=== PATIENT | female | born 1960 | race Caucasian/White ===

== ENCOUNTER 2017-05-26 18:45 | Observation (INO) | payer OTHER, SELFPAY ==
[2017-05-26 18:45] VITALS: BP 147/98; PULSE 58; RESP 22; TEMP 36.8; O2SAT 91; BMI 37.2
--- NOTE | 2017-05-26 18:56 | XR_ITS ---
XR chest 2V HISTORY: ITS.REASON: cough ORDERING PHYSICIAN: Vern Baltazar MD PATIENT AGE: 56 years COMPARISON: 09/22/2015 FINDINGS: The cardiomediastinal silhouette and pulmonary vascularity are within normal limits. The lungs are clear without infiltrates, suspicious nodules, or pleural effusions. No acute bony abnormalities. IMPRESSION: Negative chest, no acute finding
[2017-05-26 19:03] VITALS: PULSE 104; PULSE 96
[2017-05-26 19:35] LABS: Basophils # 0.1 K/mm3 (0-0.2); Basophils % 0.4 % (0.1-2.0); Eosinophils # 0.1 K/mm3 (0.0-0.4); Hematocrit 47.5 % (37.0-47.0); Lymphocytes # 2.9 K/mm3 (0.7-4.5); Lymphocytes % 21.3 K/mm3 (10-50); Mean Corpuscular HGB Conc 33.7 g/dL (31.8-35.4); Mean Corpuscular Hemoglobin 31.9 pg (27.0-31.2); Mean Corpuscular Volume 94.8 fl (81-99); Mean Platelet Volume 8.2 fl (7.4-10.4); Monocytes # 0.6 K/mm3 (0.1-1.0); Monocytes % 4.5 % (1.7-9.3); Neutrophils % 72.8 % (37.0-80.0); Platelet Count 393 K/mm3 (142-424); Red Blood Count 5.01 M/mm3 (4.20-5.40); Red Cell Distribution Width 13.1 % (11.5-17.5); White Blood Count 13.8 K/mm3 (4.8-10.8)
[2017-05-26 19:42] LABS: Lactic Acid 1.2 mmol/L (0.4-2.0)
[2017-05-26 19:54] LABS: Alanine Aminotransferase 105 U/L (12-78); Albumin Level 3.7 gm/dL (3.4-5.0); Albumin/Globulin Ratio 0.8 (1.1-1.8); Alkaline Phosphatase 117 U/L (46-116); Anion Gap 12.4 mEq/L (5-15); Aspartate Amino Transferase 52 U/L (15-37); Bilirubin,Total 0.5 mg/dL (0.2-1.0); Blood Urea Nitrogen 28 mg/dL (7-18); Calcium 9.2 mg/dL (8.5-10.1); Carbon Dioxide 29 mmol/L (21.0-32.0); Chloride 103 mmol/L (98-107); Creatine Kinase 38 U/L (26-192); Creatinine Clearance Estimated 81 mL/min (0-300); Creatinine,Serum 1.17 mg/dL (0.55-1.02); Estimated Glomerular Filt Rate 48 ml/min (>60); GFR (African American) 58 ML/MIN (>60); Globulin 4.6 gm/dl (1.3-3.2); Glucose 195 mg/dL (74-106); Potassium 3.4 mmoL/L (3.5-5.1); Sodium 141 mmol/L (136-145); Total Protein,Serum 8.3 gm/dL (6.4-8.2); Troponin I < 0.02 ng/ml (0.00-0.06)
[2017-05-26 19:56] LABS: CKMB Relative Index 1.3 U/L (0-4.0); Creatine Kinase MB < 0.5 mg/ml (0.0-3.6)
--- NOTE | 2017-05-26 22:25 | HMH.EDSOB ---
ED Disposition Clinical Impression: Chest pain in adult, Acute exacerbation of chronic obstructive airways disease, Renal insufficiency Ventral hernia Qualifiers: Obstruction and gangrene presence: without obstruction or gangrene Qualified Code(s): K43.9 - Ventral hernia without obstruction or gangrene Disposition: Admitted as Observation Condition on Discharge: Good - Critical Care Critical Care Time: No Attestation: On 05/26/17, the high probability of a clinically significant, sudden or life threatening deterioration of the following system(s) required my full and direct attention, intervention and personal management. The time I documented below is in addition to time spent performing reported procedures but includes the following listed in this critical care notation. Medical Decision Making - Medical Records Medical records reviewed: Yes: I reviewed the patient's medical records. Vital Signs: 05/26/17 18:45 05/26/17 19:03 Temperature 98.2 F Temperature Source Tympanic Pulse Rate 104 H Pulse Rate [Left Brachial] 58 L Respiratory Rate 22 Blood Pressure [Right Arm] 147/98 Blood Pressure Mean [Right Arm] 114 Blood Pressure Source [Right Arm] Automatic Cuff Blood Pressure Position [Right Arm] Sitting 02 Sat by Pulse Oximetry 91 L Oxygen Delivery Method Room Air - Lab Data Lab results reviewed: Yes: I reviewed the patient's lab results. Lab Results 05/26/17 19:15: WBC 13.8 H, RBC 5.01, Hgb 16.0, Hct 47.5 H, MCV 94.8, MCH 31.9 H, MCHC 33.7, RDW 13.1, Plt Count 393, MPV 8.2, Neut % (Auto) 72.8, Lymph % (Auto) 21.3, [place] % (Auto) 4.5, Eos % (Auto) 1.0, Baso % (Auto) 0.4, Neut # (Auto) 10.0 H, Lymph # (Auto) 2.9, [place] # (Auto) 0.6, Eos # (Auto) 0.1, Baso # (Auto) 0.1 05/26/17 19:15: Sodium 141, Potassium 3.4 L, Chloride 103, Carbon Dioxide 29, Anion Gap 12.4, BUN 28 H, Creatinine 1.17 H, Estimated Creat Clear 81, Estimated GFR 48 L, Est GFR ( Amer) 58 L, Glucose 195 H, Calcium 9.2, Total Bilirubin 0.5, AST 52 H, ALT 105 H, Alkaline Phosphatase 117 H, Total Creatine Kinase 38, CK-MB (CK-2) < 0.5, CK-MB (CK-2) Rel Index 1.3, Troponin I < 0.02, Total Protein 8.3 H, Albumin 3.7, Globulin 4.6 H, Albumin/Globulin Ratio 0.8 L 05/26/17 19:15: Lactic Acid 1.2 05/26/17 20:55: Influenza Type A Ag Negative, Influenza Type B Ag Negative Result diagrams: 05/26/17 19:15 05/26/17 19:15 Orders (Tests/Meds): ED MEDICATIONS Discontinued Medications Generic Name Dose Route Start Last Admin Trade Name Freq PRN Reason Stop Dose Admin Albuterol/Ipratropium 3 ml 05/26/17 18:58 05/26/17 19:00 Duoneb 3ml Neb IH 05/26/17 18:59 3 ml ONCE ONE Administration ORDERS Category Date Time Status Blood Culture Stat Micro 05/26/17 19:15 Received 12-lead EKG Request [ECG Request by /Sophia] Stat Y 05/26/17 22:38 Ordered - Radiology Data #1 Image Reviewed: Yes I reviewed the patient's radiology image Preliminary Findings: Normal/NAD - ECG Data Tracing #1 I reviewed this ECG and interpreted as documented below: Arrhythmias present: other (nsr) Ischemic changes: non-specific ST-T wave changes - Chuy Inquiry Pt receiving controlled substance: No Resp/SOB HPI - General Chief Complaint: Shortness of Breath/Dyspnea Stated Complaint: Knot in stomach, Congestion, Diaherra Time Seen by Provider: 05/26/17 22:25 Mode of Arrival: Ambulatory Source of Information: Patient, Relative, Medical Record Limitations: No Limitations Description of Symptoms (Recalled from ER Triage Doc. by RN): productive cough, weak, fever - History of Present Illness over the last few weeks sob with exertion and lower chest pain with dec po intake - no known ht disease MD Complaint: shortness of breath Onset (ago): day(s) Context: occurred during exertion Severity: moderate Known history of: COPD Treatment prior to arrival: none - Related Data Home oxygen amount: none Allergies Allergy
--- NOTE | 2017-05-26 22:32 | ED_ITS ---
ED Disposition Clinical Impression: Chest pain in adult, Acute exacerbation of chronic obstructive airways disease , Renal insufficiency Ventral hernia Qualifiers: Obstruction and gangrene presence: without obstruction or gangrene Qualified Code(s): K43.9 - Ventral hernia without obstruction or gangrene Disposition: Admitted as Observation Condition on Discharge: Good - Critical Care Critical Care Time: No Attestation: On 05/26/17, the high probability of a clinically significant, sudden or life threatening deterioration of the following system(s) required my full and direct attention, intervention and personal management. The time I documented below is in addition to time spent performing reported procedures but includes the following listed in this critical care notation. Medical Decision Making - Medical Records Medical records reviewed: Yes: I reviewed the patient's medical records. Vital Signs: 05/26/17 18:45 05/26/17 19:03 Temperature 98.2 F Temperature Source Tympanic Pulse Rate 104 H Pulse Rate [Left Brachial] 58 L Respiratory Rate 22 Blood Pressure [Right Arm] 147/98 Blood Pressure Mean [Right Arm] 114 Blood Pressure Source [Right Arm] Automatic Cuff Blood Pressure Position [Right Arm] Sitting 02 Sat by Pulse Oximetry 91 L Oxygen Delivery Method Room Air - Lab Data Lab results reviewed: Yes: I reviewed the patient's lab results. Lab Results 05/26/17 19:15: WBC 13.8 H, RBC 5.01, Hgb 16.0, Hct 47.5 H, MCV 94.8, MCH 31.9 H , MCHC 33.7, RDW 13.1, Plt Count 393, MPV 8.2, Neut % (Auto) 72.8, Lymph % (Auto ) 21.3, [place] % (Auto) 4.5, Eos % (Auto) 1.0, Baso % (Auto) 0.4, Neut # (Auto) 10.0 H, Lymph # (Auto) 2.9, [place] # (Auto) 0.6, Eos # (Auto) 0.1, Baso # (Auto) 0.1 05/26/17 19:15: Sodium 141, Potassium 3.4 L, Chloride 103, Carbon Dioxide 29, Anion Gap 12.4, BUN 28 H, Creatinine 1.17 H, Estimated Creat Clear 81, Estimated GFR 48 L, Est GFR ( Amer) 58 L, Glucose 195 H, Calcium 9.2, Total Bilirubin 0.5, AST 52 H, ALT 105 H, Alkaline Phosphatase 117 H, Total Creatine Kinase 38, CK-MB (CK-2) < 0.5, CK-MB (CK-2) Rel Index 1.3, Troponin I < 0.02, Total Protein 8.3 H, Albumin 3.7, Globulin 4.6 H, Albumin/Globulin Ratio 0.8 L 05/26/17 19:15: Lactic Acid 1.2 05/26/17 20:55: Influenza Type A Ag Negative, Influenza Type B Ag Negative Result diagrams: 05/26/17 19:15 05/26/17 19:15 Orders (Tests/Meds): ED MEDICATIONS Discontinued Medications Generic Name Dose Route Start Last Admin Trade Name Freq PRN Reason Stop Dose Admin Albuterol/Ipratropium 3 ml 05/26/17 18:58 05/26/17 19:00 Duoneb 3ml Neb IH 05/26/17 18:59 3 ml ONCE ONE Administration ORDERS Category Date Time Status Blood Culture Stat Micro 05/26/17 19:15 Received 12-lead EKG Request [ECG Request by /Sophia] Stat Y 05/26/17 22:38 Ordered - Radiology Data #1 Image Reviewed: Yes I reviewed the patient's radiology image Preliminary Findings: Normal/NAD - ECG Data Tracing #1 I reviewed this ECG and interpreted as documented below: Arrhythmias present: other (nsr) Ischemic changes: non-specific ST-T wave changes - Chuy Inquiry Pt receiving controlled substance: No Resp/SOB HPI - General Chief Complaint: Shortness of Breath/Dyspnea Stated Complaint: Knot in stomach, Congestio
[2017-05-26 23:00] VITALS: RESP 18; O2SAT 96; BMI 35.2
[2017-05-26 23:36] VITALS: BP 113/67; PULSE 66; RESP 20; TEMP 37; O2SAT 100
[2017-05-27] VITALS (22 sets, daily range): BP systolic 114–150; BP diastolic 62–107; PULSE 58–95; RESP 13–98; TEMP 36.1–36.7; O2SAT 2–100
--- NOTE | 2017-05-27 | IR_ITS ---
CARDIAC CATHETERIZATION DATE OF CATHETERIZATION:05/27/2017 2:51 PM PROCEDURES: 1. Left heart catheterization 2. Left ventriculogram 3. Selective coronary angiogram INDICATION FOR TEST: 1. Unstable angina Informed consent was obtained prior to the procedure. COMPLICATIONS: None ESTIMATED BLOOD LOSS: Less than 10 ml. TECHNIQUE: One percent lidocaine was used to anesthetize the right groin. The right femoral artery was accessed via the Seldinger technique. A 4-[place] sheath was placed in the right femoral artery. The JL-4 and JR-4 catheter was also used to perform left heart catheterization and left ventriculography. At the end of the procedure the patient was transferred to the post-op holding area in stable condition for arterial sheath removal. ANGIOGRAPHIC RESULTS: 1. The left main artery normal 2. The left anterior descending artery normal 3. The circumflex artery normal 4. The right coronary artery dominant normal 5. The ANTON ventriculogram reveals slightly hyperdynamic at 70% 6. The left ventricular end-diastolic pressure 30 mmHg IMPRESSION: 1. Normal coronary arteries. 2. Hyperdynamic ejection fraction consistent with hypertensive heart disease 3. Moderate to severely elevated LVEDP consistent with diastolic dysfunction PLAN: 1. Patient requires diuresis. She would also benefit from diltiazem or verapamil also combined with a beta eder 2. Sleep study 3. Risk factor modification
--- NOTE | 2017-05-27 04:40 | PC.NURSE ---
COME IN THRU ED C/O SOA AND CHEST PAIN. PATIENT REPORTS HAVING GREEN AND DARK YELLOW SPUTUM SINCE BEFORE [facility]. EXPRESSES ANXIETY DUE TO FAMILY HISTORY OF CA. APPLE SAXENA ARE ON BLE VSS. NO ACUTE CHANGES. NO FURTHER C/O PAIN THIS SHIFT. CALL LIGHT IN REACH. WILL CONTINUE TO MONITOR
--- NOTE | 2017-05-27 06:52 | CA_ITS ---
PROCEDURE: 2-D M-mode and color Doppler study INDICATIONS FOR THE TEST: Chest painX COPDX Heart Murmur Tobacco SmokingX Palpitations Fatigue Syncope Edema Hypertension Diabetes Mellitus Rheumatic Fever SOBXDOEXObesity Hyperlipidemia Family History HD Additional History PATIENT INFORMATION HEIGHT: 63 WEIGHT:198 GENDER: Female B/P:147/98 2-D/M-MODE INTERPRETATION: 2-D MEASUREMENTS OBSERVED VALUES IN CMS Right Ventricular Dimension (RVDd) 2.3 Interventricular Septum (Thickness)(IVsd) 1.0 Left Ventricular Internal Dimensions(LVIDd) 4.8 Left Ventricular Posterior Wall (Thickness)(LVPWd) 1.1 Aortic Root 3.4 Aortic Cusp Separation 1.7 Left Atrial Dimensions (LAD) 2.3 2D 1. Left atrium is normal size, left ventricle is normal size, there is no concentric left ventricular hypertrophy, visually estimated ejection fraction 50%, there is abnormal septal motion. 2. The right atrium and right ventricle are qualitatively mildly enlarged with normal contractility. 3. The aortic valve is minimally thickened and fibrosed. 4. The mitral and tricuspid valvular grossly normal. 5. The pulmonic valve is poorly visualized. 6. No significant pericardial effusion noted. DOPPLER INTERROGATION: Doppler interrogation of the aortic, mitral and tricuspid valvular presence of mild mitral and tricuspid regurgitation, tricuspid and jet velocity is insufficient for calculation of the right ventricular systolic pressure, diastolic parameters are inconclusive. CONCLUSION: 1. Technically difficult study because of the patient's factor and poor acoustic windows 2. Normal left ventricular size, visually estimated ejection fraction 50%, there is abnormal septal motion. Diastolic parameters are inconclusive. 3. Mildly enlarged right atrium and right ventricle, contractility of the right ventricle is normal 4. No significant pericardial effusion noted.
[2017-05-27 07:04] LABS: Anion Gap 10.9 mEq/L (5-15); Blood Urea Nitrogen 24 mg/dL (7-18); Carbon Dioxide 29 mmol/L (21.0-32.0); Chloride 105 mmol/L (98-107); Creatinine Clearance Estimated 98 mL/min (0-300); Creatinine,Serum 0.91 mg/dL (0.55-1.02); Estimated Glomerular Filt Rate 64 ml/min (>60); GFR (African American) 77 ML/MIN (>60); Glucose 115 mg/dL (74-106); Sodium 142 mmol/L (136-145)
[2017-05-27 07:08] LABS: Troponin I < 0.02 ng/ml (0.00-0.06)
[2017-05-27 07:15] LABS: Potassium 2.9 mmoL/L (3.5-5.1)
[2017-05-27 07:27] LABS: Basophils # 0.1 K/mm3 (0-0.2); Basophils % 0.4 % (0.1-2.0); Eosinophils # 0.2 K/mm3 (0.0-0.4); Eosinophils % 1.3 % (0.1-12.0); Lymphocytes # 3.6 K/mm3 (0.7-4.5); Lymphocytes % 27.4 K/mm3 (10-50); Mean Corpuscular HGB Conc 33.7 g/dL (31.8-35.4); Mean Corpuscular Hemoglobin 31.8 pg (27.0-31.2); Mean Corpuscular Volume 94.3 fl (81-99); Mean Platelet Volume 8.4 fl (7.4-10.4); Monocytes # 0.9 K/mm3 (0.1-1.0); Monocytes % 6.8 % (1.7-9.3); Neutrophils # 8.4 K/mm3 (1.8-7.8); Neutrophils % 64.1 % (37.0-80.0); Platelet Count 358 K/mm3 (142-424); Red Blood Count 4.46 M/mm3 (4.20-5.40); Red Cell Distribution Width 13.2 % (11.5-17.5); White Blood Count 13.1 K/mm3 (4.8-10.8)
[2017-05-27 07:31] LABS: Hemoglobin 14.2 g/dL (12.2-16.2)
--- NOTE | 2017-05-27 07:47 | P.CONPHA_ITS ---
[facility] Pharmacy VTE Monitoring - Patient Demographics Admission date: 05/26/17 Report Date: 05/27/17 Time: 07:47 Allergies/Adverse Reactions: No Known Allergies Allergy (Unverified 05/03/17 14:31) Height: 1.6 m Weight: 90.038 kg Patient Problems: Current Active Problems Chest pain in adult (Acute) Acute exacerbation of chronic obstructive airways disease (Acute) Renal insufficiency (Acute) Ventral hernia (Acute) - VTE Risk Labs: VTE Related Lab Results Hgb 14.2 g/dL (12.2-16.2) D 05/27/17 06:22 Hct 42.0 % (37.0-47.0) 05/27/17 06:22 Plt Count 358 K/mm3 (142-424) 05/27/17 06:22 BUN 24 mg/dL (7-18) H 05/27/17 06:22 Creatinine 0.91 mg/dL (0.55-1.02) D 05/27/17 06:22 Estimated Creat Clear 98 mL/min (0-300) 05/27/17 06:22 Was VTE Risk Assessment Performed: Yes VTE Score: 7 VTE Risk Level: Moderate Risk - Prophylaxis VTE Prophylaxis Ordered?: Yes Types of VTE Prophylaxis: TEDS Knee High Location of Applied Device: Bilateral Lower Extremeties - VTE Diagnosis Confirmed Treatment or plan recommended: Continue Current Treatment
--- NOTE | 2017-05-27 08:47 | HMH.CARDCON2 ---
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 Symptoms also include chest discomfort but patient with possible ventral hernia vs esophageal discomfort that complicates the picture. She relates feeling as if her air has been shut off when she exerts herself with discomfort in her neck. Symptoms resolve with rest. EKG in ER was NSR without acute changes. Troponins have been normal overnight. Review of Systems - *Cardiovascular Reports chest pain with activity, Reports shortness of breath with activity - *Respiratory Reports shortness of breath with activity, Reports wheezing - *Gastrointestinal Reports loose stools [facility] History Medical History: Denies:: Cancer, Diabetes Mellitus Type 1, Diabetes Mellitus Type 2, MRSA Other Medical History: Reports: Arthritis, Fibromyalgia, Hypothyroidism, Thyroid Disease Other Surgeries: Yes: Colonoscopy Amputation: No Fractures: No - *Social History Educational Level: Completed GED/General Educational Development Smoking Status: Heavy tobacco smoker Tobacco Type: cigarettes # Packs/Day (cigarettes): 1 #Yrs smoked (if former smoker): 40 Alcohol Intake: current Alcohol Intake Frequency:: a few times a week Substance Use Type: denies use Occupational Status: disabled Housing: house Household Members: none - Psychiatric History Expresses thoughts of harming self/others: None Suicide Plan Description: No Plan *Family Hx:: Bleeding Disorder, Cancer, Coronary Artery Disease, Diabetes, Heart Attack, Hypertension, Kidney Disease, Stroke, Thyroid Disorder Meds Home Medications Medication Instructions Recorded Confirmed Type Albuterol Sulfate [Proventil-HFA 1 puff INHALATION NEEDED PRN 05/27/17 05/27/17 History 90mcg/puff Inh] Albuterol Sulfate [Proventil-HFA 1 puff INHALATION NEEDED PRN 05/27/17 05/27/17 History 90mcg/puff Inh] Duloxetine HCl [Cymbalta 30mg 30 mg PO BID 05/27/17 05/27/17 History capsule] Gabapentin [Neurontin 600mg 600 mg PO TID 05/27/17 05/27/17 History tablet] Lactulose [Lactulose 10gm/15ml 10 cc PO NEEDED PRN 05/27/17 05/27/17 History Oral Soln] Levothyroxine Sodium 75 mcg PO DAILY 05/27/17 05/27/17 History [Levothyroxine 75mcg (0.075mg) Tab] Loratadine [Claritin 10mg Tablet] 10 mg INHALATION BID 05/27/17 05/27/17 History Mometasone/Formoterol [Dulera 200 2 puffs INHALATION BID 05/27/17 05/27/17 History Mcg/5 Mcg Inhaler] Pantoprazole Sodium [Protonix 40mg 40 mg PO DAILY 05/27/17 05/27/17 History tablet] Tiotropium [place] [Spiriva 18 mg INHALATION DAILY 05/27/17 05/27/17 History 18mcg/puff inhaler] hydroCHLOROthiazide [HCTZ 25mg 25 mg PO DAILY 05/27/17 05/27/17 History tab] raNITIdine HCl [Ranitidine HCl] 150 mg PO BID 05/27/17 05/27/17 History Allergies Allergy/AdvReac Type Severity Reaction Status Date / Time No Known Allergies Allergy Unverified 05/03/17 14:31 Exam Vital signs and Labs for Last 24 Hours: Temp Pulse Resp BP Pulse Ox 97.9 F 68 18 129/96 96 05/27/17 04:00 05/27/17 04:00 05/27/17 04:00 05/27/17 04:00 05/26/17 23:00 Laboratory Results - last 24 hr 05/27/17 06:22: Troponin I < 0.02 05/27/17 06:22: WBC 13.1 H, RBC 4.46, Hgb 14.2 D, Hct 42.0, MCV 94.3, MCH 31.8 H, MCHC 33.7, RDW 13.2, Plt Count 358, MPV 8.4, Neut % (Auto) 64.1, Lymph % (Auto) 27.4, [place] % (Auto) 6.8, Eos % (Auto) 1.3, Baso % (Auto) 0.4, Neut # (Auto) 8.4 H, Lymph # (Auto) 3.6, [place] # (Auto) 0.9, Eos # (Auto) 0.2, Baso # (Auto) 0.1 05/27/17 06:22: Sodium 142, Potassium 2.9 L*, Chloride 105, Carbon Dioxide 29, Anion Gap 10.9, BUN 24 H, Creatinine 0.91 D,
--- NOTE | 2017-05-27 08:52 | P.CONS_ITS ---
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 Symptoms also include chest discomfort but patient with possible ventral hernia vs esophageal discomfort that complicates the picture. She relates feeling as if her air has been shut off when she exerts herself with discomfort in her neck. Symptoms resolve with rest. EKG in ER was NSR without acute changes. Troponins have been normal overnight. Review of Systems - *Cardiovascular Reports chest pain with activity, Reports shortness of breath with activity - *Respiratory Reports shortness of breath with activity, Reports wheezing - *Gastrointestinal Reports loose stools [facility] History Medical History: Denies:: Cancer, Diabetes Mellitus Type 1, Diabetes Mellitus Type 2, MRSA Other Medical History: Reports: Arthritis, Fibromyalgia, Hypothyroidism, Thyroid Disease Other Surgeries: Yes: Colonoscopy Amputation: No Fractures: No - *Social History Educational Level: Completed GED/General Educational Development Smoking Status: Heavy tobacco smoker Tobacco Type: cigarettes # Packs/Day (cigarettes): 1 #Yrs smoked (if former smoker): 40 Alcohol Intake: current Alcohol Intake Frequency:: a few times a week Substance Use Type: denies use Occupational Status: disabled Housing: house Household Members: none - Psychiatric History Expresses thoughts of harming self/others: None Suicide Plan Description: No Plan *Family Hx:: Bleeding Disorder, Cancer, Coronary Artery Disease, Diabetes, Heart Attack, Hypertension, Kidney Disease, Stroke, Thyroid Disorder Meds Home Medications Medication Instructions Recorded Confirmed Type Albuterol Sulfate [Proventil-HFA 1 puff INHALATION NEEDED PRN 05/27/17 History 90mcg/puff Inh] Albuterol Sulfate [Proventil-HFA 1 puff INHALATION NEEDED PRN 05/27/17 History 90mcg/puff Inh] Duloxetine HCl [Cymbalta 30mg 30 mg PO BID 05/27/17 05/27/17 History capsule] Gabapentin [Neurontin 600mg 600 mg PO TID 05/27/17 05/27/17 History tablet] Lactulose [Lactulose 10gm/15ml 10 cc PO NEEDED PRN 05/27/17 05/27/17 History Oral Soln] Levothyroxine Sodium 75 mcg PO DAILY 05/27/17 05/27/17 History [Levothyroxine 75mcg (0.075mg) Tab] Loratadine [Claritin 10mg Tablet] 10 mg INHALATION BID 05/27/17 05/27/17 History Mometasone/Formoterol [Dulera 200 2 puffs INHALATION BID 05/27/17 05/27/17 History Mcg/5 Mcg Inhaler] Pantoprazole Sodium [Protonix 40mg 40 mg PO DAILY 05/27/17 05/27/17 History tablet] Tiotropium [place] [Spiriva 18 mg INHALATION DAILY 05/27/17 05/27/17 History 18mcg/puff inhaler] hydroCHLOROthiazide [HCTZ 25mg 25 mg PO DAILY 05/27/17 05/27/17 History tab] raNITIdine HCl [Ranitidine HCl] 150 mg PO BID 05/27/17 05/27/17 History Allergies Allergy/AdvReac Type Severity Reaction Status Date / Time No Known Allergies Allergy Unverified 05/03/17 14:31 Exam Vital signs and Labs for Last 24 Hours: Temp Pulse Resp BP Pulse Ox 97.9 F 68 18 129/96 96
--- NOTE | 2017-05-27 08:58 | HMH.HP ---
*Admission Date: 05/26/17 *Chief complaint: chest pain *History of present illness: pt with chest pain with assoc diaphoresis and sob over the last 2 weeks and was seen in the ed and felt to have prob angina with jenny of least 3 and see card and ed note - [facility] History I have reviewed the patient's past medical history: Yes Medical History: Denies:: Cancer, Diabetes Mellitus Type 1, Diabetes Mellitus Type 2, MRSA Other Medical History: Reports: Arthritis, Fibromyalgia, Hypothyroidism, Thyroid Disease Other Surgeries: Yes: Colonoscopy Amputation: No Fractures: No - *Social History Educational Level: Completed GED/General Educational Development Smoking Status: Heavy tobacco smoker Tobacco Type: cigarettes # Packs/Day (cigarettes): 1 #Yrs smoked (if former smoker): 40 Alcohol Intake: current Alcohol Intake Frequency:: a few times a week Substance Use Type: denies use Occupational Status: disabled Housing: house Household Members: none - Psychiatric History Expresses thoughts of harming self/others: None Suicide Plan Description: No Plan *Family Hx:: Bleeding Disorder, Cancer, Coronary Artery Disease, Diabetes, Heart Attack, Hypertension, Kidney Disease, Stroke, Thyroid Disorder Review of Systems - Review of Systems Review of systems:: pertinent systems reviewed and negative unless documented below - Constitutional Denies fever(s) - Eyes Denies change in vision - ENT Denies nasal congestion - *Cardiovascular Reports chest pain, Reports chest pain with activity, Reports shortness of breath, Reports shortness of breath causing sudden awakening - *Respiratory Reports cough - *Gastrointestinal Reports nausea, Denies abdominal pain, Denies vomiting blood, Denies black, tarry stools - *Genitourinary Denies blood in urine - *Musculoskeletal Denies joint pain, Denies neck pain - Integumentary/Breasts Denies rash - *Neurologic Denies numbness, Denies seizure-like activity - Psychiatric Denies depression, Denies memory loss Meds Home Medications Medication Instructions Recorded Confirmed Type Albuterol Sulfate [Proventil-HFA 1 puff INHALATION NEEDED PRN 05/27/17 05/27/17 History 90mcg/puff Inh] Albuterol Sulfate [Proventil-HFA 1 puff INHALATION NEEDED PRN 05/27/17 05/27/17 History 90mcg/puff Inh] Duloxetine HCl [Cymbalta 30mg 30 mg PO BID 05/27/17 05/27/17 History capsule] Gabapentin [Neurontin 600mg 600 mg PO TID 05/27/17 05/27/17 History tablet] Lactulose [Lactulose 10gm/15ml 10 cc PO NEEDED PRN 05/27/17 05/27/17 History Oral Soln] Levothyroxine Sodium 75 mcg PO DAILY 05/27/17 05/27/17 History [Levothyroxine 75mcg (0.075mg) Tab] Loratadine [Claritin 10mg Tablet] 10 mg INHALATION BID 05/27/17 05/27/17 History Mometasone/Formoterol [Dulera 200 2 puffs INHALATION BID 05/27/17 05/27/17 History Mcg/5 Mcg Inhaler] Pantoprazole Sodium [Protonix 40mg 40 mg PO DAILY 05/27/17 05/27/17 History tablet] Tiotropium [place] [Spiriva 18 mg INHALATION DAILY 05/27/17 05/27/17 History 18mcg/puff inhaler] hydroCHLOROthiazide [HCTZ 25mg 25 mg PO DAILY 05/27/17 05/27/17 History tab] raNITIdine HCl [Ranitidine HCl] 150 mg PO BID 05/27/17 05/27/17 History Allergies Allergy/AdvReac Type Severity Reaction Status Date / Time No Known Allergies Allergy Unverified 05/03/17 14:31 Exam Vital signs and Labs for Last 24 Hours: Temp Pulse Resp BP Pulse Ox 97.9 F 68 18 129/96 96 05/27/17 04:00 05/27/17 04:00 05/27/17 04:00 05/27/17 04:00 05/26/17 23:00 Laboratory Results - last 24 hr 05/27/17 06:22: Troponin I < 0.02 05/27/17 06:22: WBC 13.1 H, RBC 4.46, Hgb 14.2 D, Hct 42.0, MCV 94.3, MCH 31.8 H, MCHC 33.7, RDW 13.2, Plt Count 358, MPV 8.4, Neut % (Auto) 64.1, Lymph % (Auto) 27.4, [place] % (Auto) 6.8, Eos % (Auto) 1.3, Baso % (Auto) 0.4, Neut # (Auto) 8.4 H, Lymph # (Auto) 3.6, [place] # (Auto) 0.9, Eos # (Auto) 0.2, Baso # (
--- NOTE | 2017-05-27 17:07 | PC.NURSE ---
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 pt has resting in bed t/o this shift. Will continue to monitor
--- NOTE | 2017-05-27 17:47 | PC.NURSE ---
2ml of air released from tracelet, on reassessment pt was bleeding, a total of 4ml of air readded and will wait 30 minutes and take 2 ml out. no bleeding noted at this time. will continue to monitor
[2017-05-28] VITALS (9 sets, daily range): BP systolic 119–156; BP diastolic 67–92; PULSE 68–102; RESP 18–20; TEMP 36.3–37.1; O2SAT 92–96
--- NOTE | 2017-05-28 05:47 | PC.NURSE ---
PATIENT HAS BEEN SLEEPING MOST OF THIS SHIFT. SON ORDERED HER A PIZZA AND HAD IT DELIVERED. PATIENT STATED SHE WS STARVING AND NEEDED FOOD. REPEATEDLY STATES SHE NEEDS TO SPEAK TO THE DOCTOR BECAUSE SHE NEEDS TO STAY HERE (AT THE HOSPITAL) BECAUSE SHE FEEL AWFUL, SHE CANT CATCH HER BREATH AND SHE IS SCARED TO GO HOME BY HERSELF BECAUSE SHE FEELS SO BAD SHE CANT TAKE CARE OF HERSELF AND SHE THINKS SHE NEEDS 02 AT HOME. FEW SCATTERED WHEEZES HEARD THROUGHOUT. WRISTLET TAKEN OFF, 2X2 AND TEGADERM PLACED OVER INCISION. DRESSING REMAINS CDI. DRESSING ON RIGHT GROIN REMAINS CDI WITH NO DRAINAGE ON EITHER. NO S/S OF A HEMATOMA PRESENT SO FAR THIS SHIFT. NO STENTS WERE PLACED AT THIS TIME.PATIENT HAS BEEN UP IN ROOM TO BATHROOM AND TOLERATED WELL. VSS. REMAINS AFEBRILE. CALL LIGHT IN REACH. VTE IN PLACE. CALL LIGHT IN REACH. WILL CONTINUE TO MONITOR
--- NOTE | 2017-05-28 08:32 | HMH.ACPN ---
Internal Medicine - PN: Subj *Date: 05/28/17 *Time: 08:32 Interval history: pt with persistant sob with prod cough - neg card cath Exam Vital signs and Labs for Last 24 Hours: Temp Pulse Resp BP Pulse Ox 98.7 F 97 H 20 156/90 96 05/28/17 07:47 05/28/17 07:47 05/28/17 07:47 05/28/17 07:47 05/28/17 07:47 I & O for Last 24 hours: Intake & Output 05/25/17 05/26/17 05/27/17 05/28/17 11:59 11:59 11:59 11:59 Intake Total 298 / 298 1800 / 1800 Balance 298 / 298 1800 / 1800 Weight 198 lb 8 oz - Constitutional no acute distress - *Routine HEENT Exam Head: Present: normocephalic Eye: Present: EOMI, PERRL ENT: Present: mucous membranes dry - *Routine Neck Exam Present: supple - *Routine Respiratory Exam Absent: respiratory distress - *Routine Cardiovascular Exam Present: RRR, murmur - *Routine Abdominal Exam Present: soft - *Routine Extremities Exam Present: cyanosis. Absent: calf tenderness - *Routine Skin Exam Present: intact - *Routine Neurological Exam Present: alert, oriented X3, CN II-XII intact - Routine Psychiatric Exam Present: normal affect. Absent: good insight
[2017-05-28 09:25] LABS: Anion Gap 8.8 mEq/L (5-15); Blood Urea Nitrogen 24 mg/dL (7-18); Carbon Dioxide 30 mmol/L (21.0-32.0); Chloride 108 mmol/L (98-107); Creatinine Clearance Estimated 87 mL/min (0-300); Creatinine,Serum 1.01 mg/dL (0.55-1.02); Estimated Glomerular Filt Rate 56 ml/min (>60); GFR (African American) 68 ML/MIN (>60); Glucose 131 mg/dL (74-106); Potassium 3.8 mmoL/L (3.5-5.1); Sodium 143 mmol/L (136-145)
--- NOTE | 2017-05-28 14:40 | P.PN_ITS ---
Internal Medicine - PN: Subj *Date: 05/28/17 *Time: 14:40 Exam Vital signs and Labs for Last 24 Hours: Temp Pulse Resp BP Pulse Ox 98.2 F 73 20 130/75 96 05/28/17 12:00 05/28/17 13:32 05/28/17 12:00 05/28/17 12:00 05/28/17 13:31 Laboratory Results - last 24 hr 05/28/17 09:08: Sodium 143, Potassium 3.8 D, Chloride 108 H, Carbon Dioxide 30 , Anion Gap 8.8, BUN 24 H, Creatinine 1.01, Estimated Creat Clear 87, Estimated GFR 56 L, Est GFR ( Amer) 68, Glucose 131 H I & O for Last 24 hours: Intake & Output 05/25/17 05/26/17 05/27/17 05/28/17 23:59 23:59 23:59 23:59 Intake Total 1798 / 1798 300 / 300 Balance 1798 / 1798 300 / 300 Weight 90.038 kg 90.038 kg The patient's infection will respond to the chosen ABx?: Yes Is the patient receiving the right drug, dose, and route?: Yes Could a more targeted ABx be ordered?: No
--- NOTE | 2017-05-28 17:40 | PC.NURSE ---
PATIENT HAS BEEN UP AND DOWN TODAY TO THE BATHROOM, DOESNT LIKE IT AND WOULD LIKE TO HAVE A BSC, BUT I EXPLAINED TO HER THAT THE MOVING AROUND WAS GOOD FOR HER. I HAVE TURNED HER 02 DOWN TO 1L , WITH NO COMPLAINTS OF SOA. PATIENT IS SITTING UP AT BEDSIDE AT THIS TIME PLAYING A GAME OF DICE WITH HER FAMILY. PATIENT STILL DOES NOT THINK SHE IS WELL ENOUGH TO GO HOME. NO DISTRESS NOTED, DENIES ANY NEEDS, CAN HEAR PATIENT LAUGHING OUT IN HALLWAY, WILL CONTINUE TO MONITOR.
--- NOTE | 2017-05-29 06:15 | PC.NURSE ---
PT HAS NOT SLEPT THIS SHIFT. SHE STATES THAT SHE NEEDS HER PSYCHIATRIC MEDICINE. SHE C/O A HEADACHE X1 THIS SHIFT AND REQUESTED A NICOTINE PATCH. SHE STATED THAT SHE THOUGHT THE HEADACHE WAS FROM NOT SMOKING. PT IS CURRENTLY ON ROOM AIR AT THIS TIME. SHE HAS AMBULATED TO THE BATHROOM WITHOUT DIFFICULTY. VSS. NO CONCERNS NOTED AT THIS TIME. WILL CONTINUE TO MONITOR.
[2017-05-29 06:35] VITALS: PULSE 63
[2017-05-29 07:02] VITALS: BP 138/92; PULSE 103; RESP 16; TEMP 36.6; O2SAT 91
[2017-05-29 08:00] VITALS: BP 132/97; PULSE 96; RESP 20; TEMP 36.2; O2SAT 92
--- NOTE | 2017-05-29 08:09 | PC.NURSE ---
RECEIVED REPORT FROM TYSON HARRIS RN
--- NOTE | 2017-05-29 09:03 | HMH.DCSUM ---
General - General Admission date: 05/26/17 Discharge date: 05/29/17 HPI HPI: pt with chest pain with assoc diaphoresis and sob over the last 2 weeks and was seen in the ed and felt to have prob angina with jenny of least 3 and see card and ed note - Objective Vital signs: Temp Pulse Resp BP Pulse Ox 97.1 F L 96 H 20 132/97 92 L 05/29/17 08:00 05/29/17 08:00 05/29/17 08:00 05/29/17 08:00 05/29/17 08:00 no acute distress - *Routine HEENT Exam Head: Present: normocephalic Eye: Present: EOMI, PERRL ENT: Present: mucous membranes dry - *Routine Neck Exam Present: supple. 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 Symptoms also include chest discomfort but patient with possible ventral hernia vs esophageal discomfort that complicates the picture. She relates feeling as if her air has been shut off when she exerts herself with discomfort in her neck. Symptoms resolve with rest. EKG in ER was NSR without acute changes. Troponins have been normal overnight. pt had cath which showed no acute cad- pt with persistant sob and copd changes and responded to steroids and meds - pt is off o2 and will be followed in office Results Labs on day of discharge: Labs from last 24 hours 05/28/17 09:08 Sodium 143 Potassium 3.8 D Chloride 108 H Carbon Dioxide 30 Anion Gap 8.8 BUN 24 H Creatinine 1.01 Estimated Creat Clear 87 Estimated GFR 56 L Est GFR ( Amer) 68 Glucose 131 H Meds Home Medications Medication Instructions Recorded Confirmed Type Albuterol Sulfate [Proventil-HFA 1 puff INHALATION NEEDED PRN 05/27/17 05/27/17 History 90mcg/puff Inh] Albuterol Sulfate [Proventil-HFA 1 puff INHALATION NEEDED PRN 05/27/17 05/27/17 History 90mcg/puff Inh] Duloxetine HCl [Cymbalta 30mg 30 mg PO BID 05/27/17 05/27/17 History capsule] Gabapentin [Neurontin 600mg 600 mg PO TID 05/27/17 05/27/17 History tablet] Lactulose [Lactulose 10gm/15ml 10 cc PO NEEDED PRN 05/27/17 05/27/17 History Oral Soln] Levothyroxine Sodium 75 mcg PO DAILY 05/27/17 05/27/17 History [Levothyroxine 75mcg (0.075mg) Tab] Loratadine [Claritin 10mg Tablet] 10 mg INHALATION BID 05/27/17 05/27/17 History Mometasone/Formoterol [Dulera 200 2 puffs INHALATION BID 05/27/17 05/27/17 History Mcg/5 Mcg Inhaler] Pantoprazole Sodium [Protonix 40mg 40 mg PO DAILY 05/27/17 05/27/17 History tablet] Tiotropium [place] [Spiriva 18 mg INHALATION DAILY 05/27/17 05/27/17 History 18mcg/puff inhaler] hydroCHLOROthiazide [HCTZ 25mg 25 mg PO DAILY 05/27/17 05/27/17 History tab] raNITIdine HCl [Ranitidine HCl] 150 mg PO BID 05/27/17 05/27/17 History Allergies Allergy/AdvReac Type Severity Reaction Status Date / Time No Known Allergies Allergy Unverified 05/03/17 14:31 Discharge Plan - Patient Discharge Instructions ACTIVITY: Continue current activity DIET: continue same diet - Follow up Plan Follow up with: Mojgan Rodriguez APRN [Primary Care Provider] - 06/01/17 1:00 pm Disposition: Home, Self-Half-Way Medications: Home Medications Medication Instructions Recorded Confirmed Type Albuterol Sulfate [Proventil-HFA 1 puff INHALATION NEEDED PRN 05/27/17 05/27/17 History 90mcg/puff Inh] Albuterol Sulfate [Proventil-HFA 1 puff INHALATIO
--- NOTE | 2017-05-29 09:07 | P.DS_ITS ---
General - General Admission date: 05/26/17 Discharge date: 05/29/17 HPI HPI: pt with chest pain with assoc diaphoresis and sob over the last 2 weeks and was seen in the ed and felt to have prob angina with jenny of least 3 and see card and ed note - Objective Vital signs: Temp Pulse Resp BP Pulse Ox 97.1 F L 96 H 20 132/97 92 L 05/29/17 08:00 05/29/17 08:00 05/29/17 08:00 05/29/17 08:00 05/29/17 08:00 no acute distress - *Routine HEENT Exam Head: Present: normocephalic Eye: Present: EOMI, PERRL ENT: Present: mucous membranes dry - *Routine Neck Exam Present: supple. 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 Symptoms also include chest discomfort but patient with possible ventral hernia vs esophageal discomfort that complicates the picture. She relates feeling as if her air has been shut off when she exerts herself with discomfort in her neck. Symptoms resolve with rest. EKG in ER was NSR without acute changes. Troponins have been normal overnight. pt had cath which showed no acute cad- pt with persistant sob and copd changes and responded to steroids and meds - pt is off o2 and will be followed in office Results Labs on day of discharge: Labs from last 24 hours 05/28/17 09:08 Sodium 143 Potassium 3.8 D Chloride 108 H Carbon Dioxide 30 Anion Gap 8.8 BUN 24 H Creatinine 1.01 Estimated Creat Clear 87 Estimated GFR 56 L Est GFR ( Amer) 68 Glucose 131 H Meds Home Medications Medication Instructions Recorded Confirmed Type Albuterol Sulfate [Proventil-HFA 1 puff INHALATION NEEDED PRN 05/27/17 History 90mcg/puff Inh] Albuterol Sulfate [Proventil-HFA 1 puff INHALATION NEEDED PRN 05/27/17 History 90mcg/puff Inh] Duloxetine HCl [Cymbalta 30mg 30 mg PO BID 05/27/17 05/27/17 History capsule] Gabapentin [Neurontin 600mg 600 mg PO TID 05/27/17 05/27/17 History tablet] Lactulose [Lactulose 10gm/15ml 10 cc PO NEEDED PRN 05/27/17 05/27/17 History Oral Soln] Levothyroxine Sodium 75 mcg PO DAILY 05/27/17 05/27/17 History [Levothyroxine 75mcg (0.075mg) Tab] Loratadine [Claritin 10mg Tablet] 10 mg INHALATION BID 05/27/17 05/27/17 History Mometasone/Formoterol [Dulera 200 2 puffs INHALATION BID 05/27/17 05/27/17 History Mcg/5 Mcg Inhaler] Pantoprazole Sodium [Protonix 40mg 40 mg PO DAILY 05/27/17 05/27/17 History tablet] Tiotropium [place] [Spiriva 18 mg INHALATION DAILY 05/27/17 05/27/17 History 18mcg/puff inhaler] hydroCHLOROthiazide [HCTZ 25mg 25 mg PO DAILY 05/27/17
--- NOTE | 2017-05-29 09:39 | HMH.DCSUM ---
General - General Admission date: 05/26/17 HPI HPI: pt with chest pain with assoc diaphoresis and sob over the last 2 weeks and was seen in the ed and felt to have prob angina with jenny of least 3 and see card and ed note - Objective Vital signs: Temp Pulse Resp BP Pulse Ox 97.1 F L 96 H 20 132/97 92 L 05/29/17 08:00 05/29/17 08:00 05/29/17 08:00 05/29/17 08:00 05/29/17 08:00 Meds Home Medications Medication Instructions Recorded Confirmed Type Albuterol Sulfate [Proventil-HFA 1 puff INHALATION NEEDED PRN 05/27/17 05/27/17 History 90mcg/puff Inh] Albuterol Sulfate [Proventil-HFA 1 puff INHALATION NEEDED PRN 05/27/17 05/27/17 History 90mcg/puff Inh] Duloxetine HCl [Cymbalta 30mg 30 mg PO BID 05/27/17 05/27/17 History capsule] Gabapentin [Neurontin 600mg 600 mg PO TID 05/27/17 05/27/17 History tablet] Lactulose [Lactulose 10gm/15ml 10 cc PO NEEDED PRN 05/27/17 05/27/17 History Oral Soln] Levothyroxine Sodium 75 mcg PO DAILY 05/27/17 05/27/17 History [Levothyroxine 75mcg (0.075mg) Tab] Loratadine [Claritin 10mg Tablet] 10 mg INHALATION BID 05/27/17 05/27/17 History Mometasone/Formoterol [Dulera 200 2 puffs INHALATION BID 05/27/17 05/27/17 History Mcg/5 Mcg Inhaler] Pantoprazole Sodium [Protonix 40mg 40 mg PO DAILY 05/27/17 05/27/17 History tablet] Tiotropium [place] [Spiriva 18 mg INHALATION DAILY 05/27/17 05/27/17 History 18mcg/puff inhaler] hydroCHLOROthiazide [HCTZ 25mg 25 mg PO DAILY 05/27/17 05/27/17 History tab] raNITIdine HCl [Ranitidine HCl] 150 mg PO BID 05/27/17 05/27/17 History Allergies Allergy/AdvReac Type Severity Reaction Status Date / Time No Known Allergies Allergy Unverified 05/03/17 14:31 Discharge Plan - Patient Discharge Instructions - Follow up Plan Follow up with: Mojgan Rodriguez APRN [Primary Care Provider] - 06/01/17 1:00 pm Disposition: Home, Self-Snf Medications: Home Medications Medication Instructions Recorded Confirmed Type Albuterol Sulfate [Proventil-HFA 1 puff INHALATION NEEDED PRN 05/27/17 05/27/17 History 90mcg/puff Inh] Albuterol Sulfate [Proventil-HFA 1 puff INHALATION NEEDED PRN 05/27/17 05/27/17 History 90mcg/puff Inh] Duloxetine HCl [Cymbalta 30mg 30 mg PO BID 05/27/17 05/27/17 History capsule] Gabapentin [Neurontin 600mg 600 mg PO TID 05/27/17 05/27/17 History tablet] Lactulose [Lactulose 10gm/15ml 10 cc PO NEEDED PRN 05/27/17 05/27/17 History Oral Soln] Levothyroxine Sodium 75 mcg PO DAILY 05/27/17 05/27/17 History [Levothyroxine 75mcg (0.075mg) Tab] Loratadine [Claritin 10mg Tablet] 10 mg INHALATION BID 05/27/17 05/27/17 History Mometasone/Formoterol [Dulera 200 2 puffs INHALATION BID 05/27/17 05/27/17 History Mcg/5 Mcg Inhaler] Pantoprazole Sodium [Protonix 40mg 40 mg PO DAILY 05/27/17 05/27/17 History tablet] Tiotropium [place] [Spiriva 18 mg INHALATION DAILY 05/27/17 05/27/17 History 18mcg/puff inhaler] hydroCHLOROthiazide [HCTZ 25mg 25 mg PO DAILY 05/27/17 05/27/17 History tab] raNITIdine HCl [Ranitidine HCl] 150 mg PO BID 05/27/17 05/27/17 History Prescriptions/Medication Reconciliation: New Azithromycin [Zithromax 250mg tab] 250 mg PO DIRECTED #6 tab dilTIAZem HCl [Cardizem CD 120mg Cap] 120 mg PO DAILY 30 Days cap.er.24h predniSONE [Deltasone 20mg tablet] 20 mg PO BID #10 tab Continue Pantoprazole Sodium [Protonix 40mg tablet] 40 mg PO DAILY Levothyroxine Sodium [Levothyroxine 75mcg (0.075mg) Tab] 75 mcg PO DAILY hydroCHLOROthiazide [HCTZ 25mg tab] 25 mg PO DAILY Tiotropium [place] [Spiriva 18mcg/puff inhaler] 18 mg INHALATION DAILY raNITIdine HCl [Ranitidine HCl] 150 mg PO BID Mometasone/Formoterol [Dulera 200 Mcg/5 Mcg Inhaler] 2 puffs INHALATION BID Loratadine [Claritin 10mg Tablet] 10 mg INHALATION BID
[2017-05-30 08:23] LABS: CATHL Activated Clotting Time 133 SEC (74-125)
[2017-05-30 08:27] LABS: CATHL Activated Clotting Time 234 SEC (74-125)
== END 2017-05-29 11:29 | disposition home or self-care (01) ==
LOC: ER 19:25 → 2ND 22:48 → ER 05-27 00:09
PROVIDERS: Internal Medicine; Admitting Provider Emergency Medicine; Emergency Provider Emergency Medicine; PCP Nurse Practitioner Family; Visit Provider Emergency Medicine
DX: R07.9 Chest pain, unspecified (principal); I11.9 Hypertensive heart disease without heart failure; J44.1 Chronic obstructive pulmonary disease with (acute) exacerbation; Z82.49 Family history of ischemic heart disease and other diseases of the circulatory system; R06.09 Other forms of dyspnea; M79.7 Fibromyalgia; M54.9 Dorsalgia, unspecified
CPT/HCPCS: 36415; 71046; 80048; 80053; 82550; 82553; 83605; 84484; 85025; 85347; 87040; 87275; 87276; 93005; 93306; 93458; 94640; 94760; 94761; 96372; 99152; 99153; 99283; C1725; C1769; G0378; J0456; J1644; Q9967

== ENCOUNTER → 2017-08-12 11:09 | Outpatient (CLI) | payer OTHER, SELFPAY ==
[2017-08-12 18:19] LABS: Amphetamine/Metha Screen,Urine Negative ng/mL (<1000); Barbiturates Screen,Urine Negative ng/mL (<200); Benzodiazepines Screen,Urine Negative ng/mL (200); Cannabinoid Screen,Urine Positive ng/mL (<50); Cocaine Screen,Urine Negative ng/g (<300); Methadone Screen,Urine Negative ng/mL (<300); Opiate Screen,Urine Negative ng/mL (<300); Phencyclidine Screen,Urine Negative ng/mL (<25)
== END ==
PROVIDERS: Visit Provider Nurse Practitioner Family
DX: Z79.899 Other long term (current) drug therapy (principal)
CPT/HCPCS: 80305

== ENCOUNTER → 2017-09-16 16:29 | Outpatient (REF) | payer OTHER, SELFPAY ==
[2017-09-16 18:16] LABS: Basophils # 0.1 K/mm3 (0-0.2); Basophils % 0.5 % (0.1-2.0); Eosinophils # 0.2 K/mm3 (0.0-0.4); Eosinophils % 1.4 % (0.1-12.0); Hematocrit 48.5 % (37.0-47.0); Hemoglobin 16.4 g/dL (12.2-16.2); Lymphocytes # 2.6 K/mm3 (0.7-4.5); Lymphocytes % 22.6 K/mm3 (10-50); Mean Corpuscular HGB Conc 33.8 g/dL (31.8-35.4); Mean Corpuscular Hemoglobin 34.1 pg (27.0-31.2); Mean Corpuscular Volume 100.9 fl (81-99); Mean Platelet Volume 8.9 fl (7.4-10.4); Monocytes # 0.6 K/mm3 (0.1-1.0); Monocytes % 5.4 % (1.7-9.3); Neutrophils # 7.9 K/mm3 (1.8-7.8); Neutrophils % 70.2 % (37.0-80.0); Platelet Count 333 K/mm3 (142-424); Red Blood Count 4.81 M/mm3 (4.20-5.40); Red Cell Distribution Width 13.3 % (11.5-17.5); White Blood Count 11.3 K/mm3 (4.8-10.8)
[2017-09-16 18:47] LABS: Alanine Aminotransferase 49 U/L (12-78); Albumin Level 3.9 gm/dL (3.4-5.0); Alkaline Phosphatase 106 U/L (46-116); Anion Gap 12.7 mEq/L (5-15); Aspartate Amino Transferase 25 U/L (15-37); Bilirubin,Total 0.5 mg/dL (0.2-1.0); Blood Urea Nitrogen 18 mg/dL (7-18); Calcium 9.6 mg/dL (8.5-10.1); Carbon Dioxide 32 mmol/L (21.0-32.0); Chloride 101 mmol/L (98-107); Chol/HDL Ratio 3.4 (1-3.5); Cholesterol 197 mg/dL (140-200); Estimated Glomerular Filt Rate 57 ml/min (>60); Free T4 (Free Thyroxine) 1.05 ng/dl (0.76-1.46); GFR (African American) 69 ML/MIN (>60); Glucose 110 mg/dL (74-106); HDL Cholesterol 58 mg/dL (29-89); LDL Cholesterol 99 mg/dL (0-130); Potassium 3.7 mmoL/L (3.5-5.1); Sodium 142 mmol/L (136-145); Thyroid Stimulating Hormone 1.81 uIU/ml (0.358-3.740); Total Protein,Serum 7.9 gm/dL (6.4-8.2); Triglycerides 202 mg/dL (30-200); VLDL Cholesterol 40 mg/dL (0-40)
[2017-09-23 02:11] LABS: 1,25-Dihydroxy, Vitamin D-2 <10 pg/mL (.)
[2017-09-23 13:47] LABS: 1,25 Dihydroxy Vitamin D 60 pg/mL (.); 1,25-Dihydroxy, Vitamin D-3 59 pg/mL (.)
== END ==
LOC: LAB 16:29
PROVIDERS: Visit Provider Nurse Practitioner Family
DX: E55.9 Vitamin D deficiency, unspecified (principal); E03.9 Hypothyroidism, unspecified; G62.9 Polyneuropathy, unspecified; Z13.220 Encounter for screening for lipoid disorders
CPT/HCPCS: 80053; 80061; 82652; 84439; 84443; 85025

== ENCOUNTER → 2017-10-19 16:50 | Outpatient (REF) | payer OTHER, SELFPAY ==
[2017-10-19 18:43] LABS: Basophils # 0.1 K/mm3 (0-0.2); Basophils % 0.5 % (0.1-2.0); Eosinophils # 0.1 K/mm3 (0.0-0.4); Eosinophils % 0.9 % (0.1-12.0); Hematocrit 51.4 % (37.0-47.0); Lymphocytes % 18.1 K/mm3 (10-50); Mean Corpuscular HGB Conc 31.2 g/dL (31.8-35.4); Mean Corpuscular Hemoglobin 31.7 pg (27.0-31.2); Mean Corpuscular Volume 101.7 fl (81-99); Mean Platelet Volume 9.1 fl (7.4-10.4); Monocytes # 0.5 K/mm3 (0.1-1.0); Monocytes % 4.6 % (1.7-9.3); Neutrophils # 8.2 K/mm3 (1.8-7.8); Neutrophils % 75.9 % (37.0-80.0); Platelet Count 317 K/mm3 (142-424); Red Blood Count 5.05 M/mm3 (4.20-5.40); Red Cell Distribution Width 12.9 % (11.5-17.5); White Blood Count 10.8 K/mm3 (4.8-10.8)
[2017-10-19 19:23] LABS: Amphetamine/Metha Screen,Urine Negative ng/mL (<1000); Barbiturates Screen,Urine Negative ng/mL (<200); Benzodiazepines Screen,Urine Negative ng/mL (200); Cannabinoid Screen,Urine Negative ng/mL (<50); Cocaine Screen,Urine Positive ng/g (<300); Methadone Screen,Urine Negative ng/mL (<300); Opiate Screen,Urine Negative ng/mL (<300); Phencyclidine Screen,Urine Negative ng/mL (<25)
[2017-10-19 19:28] LABS: Alanine Aminotransferase 33 U/L (12-78); Alkaline Phosphatase 105 U/L (46-116); Anion Gap 11.4 mEq/L (5-15); Aspartate Amino Transferase 11 U/L (15-37); Bilirubin,Total 0.3 mg/dL (0.2-1.0); Blood Urea Nitrogen 28 mg/dL (7-18); Calcium 9.8 mg/dL (8.5-10.1); Carbon Dioxide 35 mmol/L (21.0-32.0); Chloride 102 mmol/L (98-107); Chol/HDL Ratio 3.3 (1-3.5); Cholesterol 216 mg/dL (140-200); Creatinine,Serum 1.32 mg/dL (0.55-1.02); Estimated Glomerular Filt Rate 41 ml/min (>60); GFR (African American) 50 ML/MIN (>60); Globulin 3.9 gm/dl (1.3-3.2); Glucose 119 mg/dL (74-106); HDL Cholesterol 65 mg/dL (29-89); LDL Cholesterol 94 mg/dL (0-130); Potassium 3.4 mmoL/L (3.5-5.1); Sodium 145 mmol/L (136-145); T4 (Thyroxine) 9.7 ug/dl (4.7-13.3); Total Protein,Serum 7.9 gm/dL (6.4-8.2); Triglycerides 284 mg/dL (30-200); VLDL Cholesterol 57 mg/dL (0-40)
== END ==
LOC: LAB 16:50
PROVIDERS: Visit Provider Nurse Practitioner Family
DX: R53.83 Other fatigue (principal); Z79.899 Other long term (current) drug therapy
CPT/HCPCS: 80053; 80061; 80305; 84436; 84443; 85025

== ENCOUNTER → 2018-01-04 14:05 | Outpatient (CLI) | payer OTHER, SELFPAY ==
--- NOTE | 2018-01-04 14:05 | XR_ITS ---
XR foot wt bearing RT 3V HISTORY: ITS.REASON: pain ORDERING PHYSICIAN: Vivien Meyers DPM PATIENT AGE: 57 years COMPARISON: None FINDINGS: There is mild hallux valgus with bony hypertrophic change at the distal aspect of the first metatarsal. Small cortical lucency is present at the medial aspect of the first metatarsal distally there is nonspecific and could be seen with an old episode of gout. There is a 2 mm calcaneal spur. IMPRESSION: 1. Mild hallux valgus. 2. Hypertrophic change of the distal aspect of the first metatarsal with a punched out lesion medially and could be related to prior trauma
--- NOTE | 2018-01-04 14:05 | XR_ITS ---
XR foot wt bearing LT 3V HISTORY: ITS.REASON: pain ORDERING PHYSICIAN: Vivien Meyers DPM PATIENT AGE: 57 years COMPARISON: None FINDINGS: No fracture or dislocation. No lytic or blastic change. There is normal mineralization.. Mild osteoarthritic changes are present at the first metatarsophalangeal joint with hypertrophic change of the distal aspect of. There is a prominent calcaneal spur at 8 mm. IMPRESSION: 1. No acute finding. 2. Mild osteoarthritic change first MTP joint
== END ==
PROVIDERS: Visit Provider Podiatrist
DX: M79.673 Pain in unspecified foot (principal)
CPT/HCPCS: 73630

== ENCOUNTER → 2018-02-08 11:22 | Outpatient (CLI) | payer OTHER, SELFPAY ==
[2018-02-08 12:48] LABS: Basophils # 0.1 K/mm3 (0-0.2); Basophils % 0.7 % (0.1-2.0); Eosinophils # 0.2 K/mm3 (0.0-0.4); Eosinophils % 1.8 % (0.1-12.0); Hematocrit 47.4 % (37.0-47.0); Hemoglobin 15.4 g/dL (12.2-16.2); Lymphocytes % 28.7 K/mm3 (10-50); Mean Corpuscular HGB Conc 32.5 g/dL (31.8-35.4); Mean Corpuscular Hemoglobin 31.9 pg (27.0-31.2); Mean Corpuscular Volume 98.3 fl (81-99); Mean Platelet Volume 8.2 fl (7.4-10.4); Monocytes # 0.6 K/mm3 (0.1-1.0); Monocytes % 5.7 % (1.7-9.3); Neutrophils # 6.6 K/mm3 (1.8-7.8); Neutrophils % 63.2 % (37.0-80.0); Platelet Count 343 K/mm3 (142-424); Red Blood Count 4.83 M/mm3 (4.20-5.40); Red Cell Distribution Width 12.8 % (11.5-17.5); White Blood Count 10.4 K/mm3 (4.8-10.8)
[2018-02-08 13:24] LABS: Alanine Aminotransferase 31 U/L (12-78); Albumin Level 3.9 gm/dL (3.4-5.0); Alkaline Phosphatase 99 U/L (46-116); Anion Gap 11.5 mEq/L (5-15); Aspartate Amino Transferase 11 U/L (15-37); Bilirubin,Total 0.3 mg/dL (0.2-1.0); Blood Urea Nitrogen 20 mg/dL (7-18); Calcium 9.1 mg/dL (8.5-10.1); Carbon Dioxide 32 mmol/L (21.0-32.0); Chloride 103 mmol/L (98-107); Creatinine,Serum 0.78 mg/dL (0.55-1.02); Estimated Glomerular Filt Rate 76 ml/min (>60); GFR (African American) 92 ML/MIN (>60); Globulin 3.9 gm/dl (1.3-3.2); Glucose 103 mg/dL (74-106); Potassium 4.5 mmoL/L (3.5-5.1); Sodium 142 mmol/L (136-145); Total Protein,Serum 7.8 gm/dL (6.4-8.2)
== END ==
PROVIDERS: PCP Nurse Practitioner Family; Visit Provider Surgery
DX: R10.9 Unspecified abdominal pain (principal)
CPT/HCPCS: 36415; 80053; 85025

== ENCOUNTER → 2018-02-13 12:26 | Outpatient (POV) | payer OTHER, SELFPAY | PROVIDERS: PCP Nurse Practitioner Family; Visit Provider Specialist | DX: R29.898 Other symptoms and signs involving the musculoskeletal system (principal); R20.8 Other disturbances of skin sensation; R20.0 Anesthesia of skin | CPT/HCPCS: 95886; 95909 ==

== ENCOUNTER → 2018-02-20 09:34 | Outpatient (CLI) | payer OTHER, SELFPAY ==
--- NOTE | 2018-02-20 09:37 | CT_ITS ---
CT abdomen pelvis w con CLINICAL INDICATION: Abdominal pain, possible ventral hernia ITS.REASON: possible ventral hernia ORDERING PHYSICIAN: Alejandro Salinas MD PATIENT AGE: 57 years COMPARISON: None TECHNIQUE: Axial images obtained with sagittal and coronal reformats. All CT scans at the facility use one or more dose reduction, viz: automated exposure control, ma/kV adjustment per patient size (including targeted exams where dose is matched to indication, i.e. head), or iterative reconstruction technique. PROCEDURE: Oral Contrast: Redicat IV Contrast: 75 mL of Isovue-370. FINDINGS: Lung bases are clear. There is diffuse fatty liver infiltration. No obvious focal liver lesion evident. Spleen, adrenal glands, gallbladder, and pancreas have an unremarkable appearance. There is a small lymph node in the portal region measuring 1.8 x 1.5 cm. No renal or ureteral calculi. No renal mass. Unremarkable appendix. No intestinal obstruction or free air. No evidence of diverticulitis. No pelvic mass or focal inflammatory change. A small amount fluid is present in the right pelvic area. There is a small ventral abdominal wall hernia. This is usp between the site void and the umbilicus 11 cm superior to the umbilicus. This contains fat along with some soft tissue density along the superior and left lateral aspect of the hernia sac. The abdominal wall defect is approximately 1 cm in width. No acute bony anomalies. IMPRESSION: 1. Small ventral abdominal wall hernia 11 cm superior to the umbilicus containing fat and some minimal nonspecific soft tissue density superiorly and laterally 2. Small portal lymph node at 1.8 x 1.[address] abdomen pelvis with contrast
== END ==
PROVIDERS: PCP Nurse Practitioner Family; Visit Provider Surgery
DX: R10.9 Unspecified abdominal pain (principal)
CPT/HCPCS: 74177; Q9967

== ENCOUNTER → 2019-03-21 13:05 | Outpatient (CLI) | payer OTHER, SELFPAY ==
--- NOTE | 2019-03-21 13:07 | US_ITS ---
APPROVED REPORT Exam Type: Ankle to Brachial Index [employer] Technician: Lori Eddy RT(R) Indications Claudication: Bilaterally Rest Pain: Bilaterally Current Smoker Pressures/Indices Right Indices Left Indices Brachial 155.00 mmHg Brachial 148.00 mmHg Low Thigh 161.00 mmHg 1.04 Low Thigh 181.00 mmHg 1.17 Calf 160.00 mmHg 1.03 Calf 141.00 mmHg 0.91 Ankle(PT) 153.00 mmHg 0.99 Ankle(PT) 152.00 mmHg 0.98 Ankle(DP) 167.00 mmHg 1.08 Ankle(DP) 172.00 mmHg 1.11 Digit 88.00 mmHg 0.57 Digit 74.00 mmHg 0.48 Findings RT STEFANO=1.0 LT STEFANO=1.0 RT TBI=0.6 LT TBI=0.5 Normal pulses Normal waveforms Dysrhythmia noted Conclusion Normal STEFANO's Low Lt TBI suggesting small vessel disease Normal pulses Normal waveforms Dysrhythmia noted Electronically signed by : Arjun Larios MD 03/21/2019 19:08:18
== END ==
PROVIDERS: PCP Emergency Medicine; Visit Provider Podiatrist
DX: R09.89 Other specified symptoms and signs involving the circulatory and respiratory systems (principal)
CPT/HCPCS: 93923

== ENCOUNTER 2023-08-04 17:39 | Inpatient (IN) | payer OTHER, SELFPAY ==
[2023-08-04] VITALS (14 sets, daily range): BP systolic 95–138; BP diastolic 56–82; PULSE 88–116; RESP 18–29; TEMP 36.7–38.2; O2SAT 92–98; BMI 28.2
--- NOTE | 2023-08-04 17:39 | ECG_ITS ---
APPROVED REPORT Exam: Resting ECG HR:117 bpm ECG Measurements Heart Rate 117 AXES MS 137 P 79 QRSd 89 QRS 93 QT 423 T 83 QTc 493 Conclusion SINUS TACHYCARDIA BORDERLINE RIGHT AXIS DEVIATION [QRS AXIS > 90] NONSPECIFIC ST & T-WAVE ABNORMALITY Electronically signed by : VASILE TAN, 08/04/2023 21:51:17
--- NOTE | 2023-08-04 17:46 | CT_ITS ---
PROCEDURE INFORMATION: Exam: CT Head Without Contrast Exam date and time: 08/04/2023 7:09 PM Age: 63 years old Clinical indication: Altered mental status/memory loss; Additional info: AMS, respiratory failure TECHNIQUE: Imaging protocol: Computed tomography of the head without contrast. Radiation optimization: All CT scans at this facility use at least one of these dose optimization techniques: automated exposure control; mA and/or kV adjustment per patient size (includes targeted exams where dose is matched to clinical indication); or iterative reconstruction. COMPARISON: HEADWO CT head/brain wo con 06/21/2018 2:22 AM FINDINGS: Brain: Periventricular white matter tract changes demonstrated. Mild-moderate prominence of the cortical sulci. Cerebral ventricles: No ventriculomegaly. Paranasal sinuses: Visualized sinuses are unremarkable. No fluid levels. Mastoid air cells: Visualized mastoid air cells are well aerated. Bones/joints: Unremarkable. No acute fracture. Soft tissues: Unremarkable. IMPRESSION: 1. Findings compatible with moderate intracerebral volume loss. 2. No evidence of acute intracranial abnormality.
--- NOTE | 2023-08-04 17:46 | CT_ITS ---
PROCEDURE INFORMATION: Exam: CTA Chest With Contrast Exam date and time: 08/04/2023 7:11 PM Age: 63 years old Clinical indication: Tachypnea and other: Resp. Failure; Additional info: AMS, respiratory failure, tachycardia TECHNIQUE: Imaging protocol: Computed tomographic angiography of the chest with contrast. Exam focused on the arteries. 3D rendering (Not supervised by radiologist): MIP and/or 3D reconstructed images were created by the technologist. Radiation optimization: All CT scans at this facility use at least one of these dose optimization techniques: automated exposure control; mA and/or kV adjustment per patient size (includes targeted exams where dose is matched to clinical indication); or iterative reconstruction. Contrast material: ISOVUE; Contrast volume: 100 ml; Contrast route: INTRAVENOUS (IV); COMPARISON: LDCTLCAS LDCT FOR LUNG CA SCREEN 10/08/2016 3:33 PM FINDINGS: Pulmonary arteries: Mild central pulmonary artery dilatation. No pulmonary emboli. Aorta: Mild thoracic aortic and arch vessel atherosclerotic disease without aneurysm or dissection. Lungs: Significant posterior right lower lobe consolidation. Mild patchy density in the left lower lobe. 1.1 cm and 0.8 cm irregular nodules in the anterior left upper lobe. 0.7 cm irregular nodule in the posterior left upper lobe. Posterior right lower lobe atelectasis. Mild diffuse bronchial wall thickening. Mild emphysema. 3.5 cm medial left lung apex subpleural bleb extends into the left neck and is positioned between the carotid and vertebral arteries. Pleural spaces: Unremarkable. No pneumothorax. No pleural effusion. Heart: Unremarkable. No cardiomegaly. No pericardial effusion. Lymph nodes: Calcified left hilar lymph nodes. No adenopathy. Bones/joints: Old right lateral 6th rib fracture. Soft tissues: Unremarkable. IMPRESSION: 1. No evidence of a pulmonary embolism. 2. Significant posterior right lower lobe consolidation consistent with pneumonia or aspiration. 3. Mild patchy density in the left lower lobe consistent with pneumonia or aspiration. 4. 1.1 cm and 0.8 cm irregular nodules in the anterior left upper lobe and 0.7 cm irregular nodule in the posterior left upper lobe could be inflammatory or neoplastic. Recommend follow-up chest CT in 3 months. 5. Mild emphysema. 3.5 cm medial left lung apex subpleural bleb extends into the left neck and is positioned between the carotid and vertebral arteries. COMMENTS: The presence of pulmonary emphysema on CT is an independent risk factor for lung cancer. In the absence of a history or active diagnosis of lung cancer, it is recommended that this patient with emphysema be evaluated for enrollment in a low dose CT lung cancer screening program.
--- NOTE | 2023-08-04 17:46 | CT_ITS ---
PROCEDURE INFORMATION: Exam: CT Abdomen And Pelvis With Contrast Exam date and time: 08/04/2023 7:11 PM Age: 63 years old Clinical indication: Other: Hernia; Additional info: AMS, respiratory failure, large hernia TECHNIQUE: Imaging protocol: Computed tomography of the abdomen and pelvis with contrast. Radiation optimization: All CT scans at this facility use at least one of these dose optimization techniques: automated exposure control; mA and/or kV adjustment per patient size (includes targeted exams where dose is matched to clinical indication); or iterative reconstruction. Contrast material: ISOVUE; Contrast volume: 100 ml; Contrast route: IV; COMPARISON: ABDPELW CT abdomen pelvis w con 02/20/2018 10:41 AM FINDINGS: Liver: Normal. No mass. Gallbladder and bile ducts: Multiple gallstones in the gallbladder. No biliary ductal dilatation. Pancreas: Normal. No ductal dilation. Spleen: Normal. No splenomegaly. Adrenal glands: 1.4 cm left adrenal nodule. No right adrenal nodule. Kidneys and ureters: Normal. No hydronephrosis. Stomach and bowel: See Soft tissues finding. Appendix: No evidence of appendicitis. Intraperitoneal space: Unremarkable. No free air. No significant fluid collection. Vasculature: Mild/moderate aortoiliac atherosclerotic disease without aneurysm. Lymph nodes: Unremarkable. No enlarged lymph nodes. Urinary bladder: Unremarkable as visualized. Reproductive: Unremarkable as visualized. Bones/joints: Old right superior and inferior pubic rami fractures. Mild degenerative change of the right hip. Mild lumbar spine degenerative change. Slight grade 1 anterolisthesis of L4 over L5. Soft tissues: There is a portion of the transverse colon within a large anterior midline supraumbilical hernia. No dilated or thickened bowel loops. Midline supraumbilical abdominal wall hernia with the peritoneal defect measuring 4.0 x 3.8 cm. IMPRESSION: 1. Cholelithiasis. 2. 1.4 cm left adrenal nodule. Consider 12 month follow-up adrenal CT. (Reference: Nahomy) 3. Midline supraumbilical abdominal wall hernia containing a portion of the transverse colon without bowel obstruction with the peritoneal defect measuring 4.0 x 3.8 cm. REFERENCES: Nahomy COOK et al. Management of Incidental Adrenal Masses: A White Paper of the ACR Incidental Findings Committee. J Am [facility]ia Radiol. 2017;14(8):5905-4276.
--- NOTE | 2023-08-04 17:52 | PC.NURSE ---
respiratory aware of vbg order with blood in lab for order
--- NOTE | 2023-08-04 17:55 | ED_ITS ---
Discharge Plan Disposition Chief Complaint: Altered Mental Status Prescriptions Prescriptions: No Action cephalexin [Keflex] 500 mg capsule 500 mg PO Q12H 10 Days Qty: 20 0RF timolol maleate 0.5 % drops 0.5 drp OPHTHALMIC DAILY 30 Days Qty: 5 diclofenac sodium 100 GM gel 2 g topical TID Rx Instructions: apply to single elbow, wrist or hand; for hand includes palm/fingers/back of hand fluticasone propionate 50 mcg/actuation blister with device 1 inh Inhalation BID Qty: 60 2RF Rx Instructions: after inhalation, rinse mouth with water and spit out; do not swallow hydroxyzine HCl 25 mg tablet 25 mg PO TID PRN (Reason: anxiety) Qty: 90 2RF nystatin 100,000 unit/mL suspension 10 ml buccal QID Qty: 200 0RF Rx Instructions: swish and swallow ranitidine HCl 150 mg tablet See Rx Instructions .ROUTE .COMPLEX Qty: 90 0RF Dose Instruction: TAKE ONE TABLET BY MOUTH EVERY DAY Rx Instructions: TAKE ONE TABLET BY MOUTH EVERY DAY tiotropium bromide [Spiriva with HandiHaler] 18 mcg capsule, w/inhalation device See Rx Instructions .ROUTE .COMPLEX Qty: 60 2RF Dose Instruction: INHALE 1 DOSE BY MOUTH ONCE DAILY Rx Instructions: INHALE 1 DOSE BY MOUTH ONCE DAILY loratadine 10 mg tablet See Rx Instructions .ROUTE .COMPLEX Qty: 90 0RF Dose Instruction: TAKE 1 TABLET BY MOUTH ONCE DAILY FOR ALLERGIES Rx Instructions: TAKE 1 TABLET BY MOUTH ONCE DAILY FOR ALLERGIES fluticasone propionate 50 mcg/actuation spray,suspension See Rx Instructions .ROUTE .COMPLEX Qty: 16 2RF Dose Instruction: USE 1 TO 2 SPRAYS IN EACH NOSTRIL DAILY DIRECTED -SHAKE GENTLY Rx Instructions: USE 1 TO 2 SPRAYS IN EACH NOSTRIL DAILY DIRECTED -SHAKE GENTLY diltiazem HCl [Cartia XT] 120 mg capsule,extended release 24hr See Rx Instructions .ROUTE .COMPLEX Qty: 90 0RF Dose Instruction: TAKE 1 CAPSULE BY MOUTH EVERY DAY FOR BLOOD PRESSURE.......THIS IS DILTIAZEM Rx Instructions: TAKE 1 CAPSULE BY MOUTH EVERY DAY FOR BLOOD PRESSURE.......THIS IS DILTIAZEM pantoprazole 40 mg tablet,delayed release (DR/EC) See Rx Instructions .ROUTE .COMPLEX Qty: 90 0RF Dose Instruction: TAKE ONE TABLET BY MOUTH EVERY DAY FOR GERD Rx Instructions: TAKE ONE TABLET BY MOUTH EVERY DAY FOR GERD duloxetine 60 mg capsule,delayed release(DR/EC) See Rx Instructions .ROUTE .COMPLEX Qty: 90 0RF Dose Instruction: TAKE 1 CAPSULE BY MOUTH EVERY DAY FOR MOOD Rx Instructions: TAKE 1 CAPSULE BY MOUTH EVERY DAY FOR MOOD albuterol sulfate 90 mcg/actuation HFA aerosol inhaler See Rx Instructions .ROUTE .COMPLEX Qty: 18 2RF Dose Instruction: INHALE 1 PUFF BY MOUTH EVERY 4 TO 6 HOURS NEEDED FOR SHORTNESS OF BREATH Rx Instructions: INHALE 1 PUFF BY MOUTH EVERY 4 TO 6 HOURS NEEDED FOR SHORTNESS OF BREATH levothyroxine 75 mcg tablet See Rx Instructions .ROUTE .COMPLEX Qty: 90 0RF Dose Instruction: TAKE ONE TABLET BY MOUTH EVERY DAY FOR THYROID Rx Instructions: TAKE ONE TABLET BY MOUTH EVERY DAY FOR THYROID hydrochlorothiazide 25 mg tablet See Rx Instructions .ROUTE .COMPLEX Qty: 90 0RF Dose Instruction: TAKE ONE TABLET BY MOUTH EVERY DAY FOR BLOOD PRESSURE Rx Instructions: TAKE ONE TABLET BY MOUTH EVERY DAY FOR BLOOD PRESSURE Breo Ellipta 100-25 mcg/dose blister with device 1 inh INHALATION DAILY Qty: 60 2RF lactulose 10 solution 10 cc PO NEEDED PRN (Reason: Constipation) Patient Comments: Referrals Follow up/Referrals: Provider,Referral, MD [Primary Care Provider] - See instructions Clinical Impressions Clinical Impression: Altered mental status, Sepsis, Acute and chronic respiratory failure, Hypokalemia, Pneumonia Instructions Patient Instructions: DI for Altered Mental Status Discharge ED Provider: Melania Pop General Adult HPI General Chief complaint: Altered Mental Status Stated complaint: SOA Time Seen by Provider: 08/04/23 17:41 History of Present Illness HPI narrative: This patient is a 63-year-old female with a history of COPD on home oxygen, chronic tobacco use, fibromyalgia, peripheral neuropathy, renal insufficiency, and anxiety presenting by EMS with concern for altered mental status and difficulty breathing. According to EMS, the family had gone to check on the patient today earlier this morning and found her having some difficulty breathing, so they placed her on her home oxygen. They left and later found her with profoundly altered mental status and worsened difficulty breathing. Given this, they called EMS, who noted that upon their arrival, the patient was hooked up to an oxygen tank that was completely empty. They noted her oxygen saturation was 86% on room air. They advised they gave her albuterol and placed on supplemental oxygen and brought her in for evaluation. Patient is somnolent but will wake up to voice and tell you what her name is. She follows commands. She does not contribute to history given acuity of condition. Related Data Home Medications Medication Instructions Recorded Confirmed lactulose 10 gram/15 mL oral 10 cc PO NEEDED PRN Constipation 05/27/17 02/27/19 solution timolol maleate 0.5 % eye drops 0.5 drp ophthalmic (eye) DAILY eye 01/04/18 02/27/19 30 days ##5 diclofenac sodium 1 % topical gel 2 g topical TID Pain 03/15/18 02/27/19 Previous Rx's Medication Instructions Recorded fluticasone propionate 50 1 inh inhalation BID allergies #60 06/23/18 mcg/actuation blister powder for ea inhalation hydroxyzine HCl 25 mg tablet 25 mg PO TID PRN anxiety #90 tabs 06/26/18 cephalexin 500 mg capsule (Keflex) 500 mg PO Q12H 10 days #20 caps 06/29/18 nystatin 100,000 unit/mL oral 10 ml buccal QID thrush #200 mL 10/20/18 suspension ranitidine HCl 150 mg tablet See Rx Instructions .Route 05/15/19 .COMPLEX ##90 albuterol sulfate 90 mcg/actuation See Rx Instructions .Route 06/11/19 aerosol inhaler .COMPLEX ##18 diltiazem HCl 120 mg See Rx Instructions .Route 06/11/19 capsule,extended release 24 hr .COMPLEX ##90 (Cartia XT) duloxetine 60 mg capsule,delayed See Rx Instructions .Route 06/11/19 release .COMPLEX #90 caps fluticasone propionate 50 See Rx Instructions .Route 06/11/19 mcg/actuation nasal .COMPLEX ##16 spray,suspension loratadine 10 mg tablet See Rx Instructions .Route 06/11/19 .COMPLEX ##90 pantoprazole 40 mg tablet,delayed See Rx Instructions .Route 06/11/19 release .COMPLEX ##90 tiotropium bromide 18 mcg capsule See Rx Instructions .Route 06/11/19 with inhalation device (Spiriva .COMPLEX ##60 with HandiHaler) hydrochlorothiazide 25 mg tablet See Rx Instructions .Route 08/06/19 .COMPLEX ##90 levothyroxine 75 mcg tablet See Rx Instructions .Route 08/06/19 .COMPLEX ##90 fluticasone furoate 100 1 inh inhalation DAILY #60 ea 09/28/19 mcg-vilanterol 25 mcg/dose inhalation powder (Breo Ellipta) Allergies Allergy/AdvReac Type Severity Reaction Status Date / Time No Known Allergies Allergy Verified 02/27/19 16:10 [facility] Disclaimer: The information contained in this section may have been updated after the patient was seen, as this information can be updated by other users. Medical History Neuropathy Social History Smoking Status: Current every day smoker tobacco type: cigarettes packs per day: 1 second hand exposure: Yes alcohol intake: current substance use type: marijuana current occupational status: disabled Travel in the last 8 weeks: None household members: none housing: house current occupational exposures/hazards: No caffeine: No ROS Obtained: Yes unobtainable due to mental status Physical Exam General General appearance: obtunded Head Head exam: atraumatic and normocephalic Eye Eye exam: Present normal appearance, PERRL and EOMI ENT ENT exam: Present normal exam, normal oropharynx, mucous membranes moist and normal external ear exam Neck Neck exam: Present normal inspection, full ROM and trachea midline; Absent tenderness Chest Chest inspection: Present normal inspection and symmetric chest wall rise; Absent tenderness Respiratory Respiratory exam: Present wheezes, accessory muscle use and prolonged expiratory phase; Absent stridor Expanded Respiratory Exam Location: Left: wheezes, rales and rhonchi, Right: wheezes, rales and rhonchi, Upper: wheezes, rales and rhonchi and Lower: wheezes, rales and rhonchi Cardiovascular Cardiovascular exam: Present regular rate and normal rhythm Abdominal Exam Abdominal exam: Present soft, normal bowel sounds and hernia (Large ventral hernia that is soft with no overlying skin changes); Absent distention, tenderness or guarding Extremities Exam Extremities exam: Present normal inspection, full ROM and normal capillary refill; Absent tenderness or edema Back Exam Back exam: Present normal inspection and full ROM; Absent tenderness Neurological Exam Neurological exam: Present other (Generally weak without focal deficit); Absent oriented X3 Expanded Neurological Exam Patient oriented to: Present person; Absent place or time Coma scale eye opening: To voice Coma scale motor response: Obeys commands Coma scale verbal response: Confused Coma scale total: 13 Skin Skin exam: Present warm and dry Medical Decision Making Medical Records Medical records reviewed: Yes I reviewed the patient's medical records. [place] Inquiry Pt receiving controlled substance: No Vital Signs: 08/04/23 17:39 08/04/23 17:47 08/04/23 18:41 Temperature 100.7 F H 99.7 F H Temperature Source Oral Oral Pulse Rate 107 H Pulse Rate [Left Radial] 116 H Respiratory Rate 18 29 H Blood Pressure 135/82 Blood Pressure [Right Arm] 134/79 Blood Pressure Mean [Right Arm] 97 Blood Pressure Source [Right Arm] Automatic Cuff Blood Pressure Position [Right Arm] Sitting 02 Sat by Pulse Oximetry 98 92 L Oxygen Delivery Method Room Air Nasal Cannula Oxygen Flow Rate (LPM) 2 08/04/23 19:47 08/04/23 19:47 Temperature Temperature Source Pulse Rate 101 H 100 H Pulse Rate [Left Radial] Respiratory Rate Blood Pressure Blood Pressure [Right Arm] Blood Pressure Mean [Right Arm] Blood Pressure Source [Right Arm] Blood Pressure Position [Right Arm] 02 Sat by Pulse Oximetry Oxygen Delivery Method Oxygen Flow Rate (LPM) Lab Data Lab results reviewed: Yes I reviewed the patient's lab results. Lab Results 08/04/23 17:45: WBC 22.4 H*, RBC 4.88, Hgb 15.5, Hct 48.9 H, MCV 100.1 H, MCH 31.9 H, MCHC 31.8, RDW 14.0, Plt Count 299, MPV 9.3, Neut % (Auto) 93.2 H, Lymph % (Auto) 3.0 L, [place] % (Auto) 3.2, Eos % (Auto) 0.2, Baso % (Auto) 0.4, Neut # (Auto) 20.8 H, Lymph # (Auto) 0.7, [place] # (Auto) 0.7, Eos # (Auto) 0.1, Baso # (Auto) 0.1, Total Counted 100, Neutrophils % (Manual) 86 H, Lymphocytes % (Manual) 9 L, Monocytes % (Manual) 5, Platelet Estimate Normal, RBC Morphology Normal, PT 11.0, INR 1.02, APTT 28.8, Sodium 137, Potassium 3.0 L, Chloride 99, Carbon Dioxide 33 H, Anion Gap 8.0, BUN 25 H, Creatinine 1.20 H, Estimated Creat Clear 60, Estimated GFR 45 L, Est GFR ( Amer) 55 L, Glucose 205 H, Calcium 9.4, Phosphorus 2.7, Magnesium 1.5 L, Total Bilirubin 0.4, AST 39 H, ALT 33, Alkaline Phosphatase 91, Troponin I 0.08 H, NT-Pro-B Natriuret Pep 4390 H, Total Protein 7.2, Albumin 4.0, Globulin 3.2, Albumin/Globulin Ratio 1.3, P rocalcitonin 42.5 H, TSH 0.28 L, Thyroxine (T4) 8.2 08/04/23 17:52: VBG pH 7.31, VBG pCO2 58.0 H, VBG pO2 33.8, VBG HCO3 28.4, VBG Total CO2 30.1 H, VBG O2 Saturation 62.0, VBG Base Excess 2.0, VBG Lactic Acid 2.7 H 08/04/23 18:15: SARS-CoV-2 (PCR) Not detected, Influenza A Untype (PCR) Not detected, Influenza Type B (PCR) Not detected 08/04/23 18:20: Urine Color Yellow, Urine Appearance Clear, Urine pH 6.0, Ur Specific [place] 1.015, Urine Protein Negative, Urine Glucose (UA) Trace, Urine Ketones Negative, Urine Blood Negative, Urine Nitrate Negative, Urine Bilirubin 1+ A, Urine Urobilinogen 0.2, Ur Leukocyte Esterase Negative, Urine RBC None, Urine WBC None, Ur Squamous Epith Cells 3-5, Urine Bacteria None, Urine Opiates Screen Negative, Urine Methadone Screen Negative, Ur Barbituates Screen Negative, Ur Phencyclidine Scrn Negative, U Benzodiazepines Scrn Negative, Urine Cocaine Screen Negative, U Marijuana (THC) Screen Positive H 08/04/23 17:45 08/04/23 17:45 Orders (Tests/Meds): ED MEDICATIONS Generic Name Dose Route Start Last Admin Trade Name Freq PRN Reason Stop Dose Admin Potassium Chloride/Water 100 mls @ 50 mls/hr 08/04/23 19:04 08/04/23 19:26 Potassium Chloride 20meq/100ml Ivpb IV 08/04/23 21:03 50 mls/hr ONCE ONE Administration Vancomycin/PEG/[place]/Lysine/Water 1.5 gm in 300 mls @ 150 mls/hr 08/04/23 20:15 Vancomycin 1.5gm/300ml (Peg) Premix IV 08/04/23 22:14 ONCE ONE Miscellaneous 1 each 08/04/23 20:00 08/04/23 20:19 Vancomycin Consult Request NOTAPPLIC 09/03/23 19:59 1 each CONSULT PHARMACY KADY Administration Sodium Chloride 10 ml 08/04/23 19:20 08/04/23 19:22 Sodium Chloride 0.9% 10ml Syr (Rad Only) IV 09/03/23 19:19 10 ml NEEDED PRN Administration Maintain IV Site Discontinued Medications Generic Name Dose Route Start Last Admin Trade Name Freq PRN Reason Stop Dose Admin Acetaminophen 1,000 mg 08/04/23 19:04 08/04/23 19:19 Acetaminophen 1,000mg/100ml Vial IV 08/04/23 19:05 1,000 mg ONCE ONE Administration Albuterol/Ipratropium 9 ml 08/04/23 17:59 08/04/23 19:27 Ipratropium/Albuterol 3 Ml Neb IH 08/04/23 18:00 9 ml ONCE ONE Administration Lactated Ringer's 1,000 mls @ 999 mls/hr 08/04/23 18:07 08/04/23 18:49 Lactated Ringer's 1000 Ml Bag IV 08/04/23 19:07 999 mls/hr .Q1H1M ONE Administration Piperacillin Sod/Tazobactam 50 mls @ 100 mls/hr 08/04/23 19:47 Sod 3.375 gm/ Sodium Chloride IV 08/04/23 20:16 ONCE ONE Iopamidol 100 ml 08/04/23 19:20 08/04/23 19:22 Iopamidol-370 (76%);100ml Bottle IV 08/04/23 19:21 100 ml ONCE ONE Administration Ketorolac Tromethamine 15 mg 08/04/23 19:04 08/04/23 19:19 Ketorolac 30mg/Ml Vial IV 08/04/23 19:05 15 mg ONCE ONE Administration Methylprednisolone Sodium Succinate 125 mg 08/04/23 17:59 08/04/23 18:49 Methylprednisolone Sod Succ 125mg Vial IV 08/04/23 18:00 125 mg ONCE ONE Administration Sodium Chloride 50 ml 08/04/23 19:20 08/04/23 19:22 0.9 % Sodium Chloride 50 Ml Vial IV 08/04/23 19:21 50 ml ONCE ONE Administration ORDERS Category Date Time Status CT abdomen pelvis w con Stat Cat Scan 08/04/23 17:[address] angio chest PE protocol Stat Cat Scan 08/04/23 17:[address] head/brain wo con Stat Cat Scan 08/04/23 17:46 Completed Activated Partial Thrombo Time Stat Lab 08/04/23 17:45 Completed Brain Natriuretic Peptide Stat Lab 08/04/23 17:45 Completed Complete Blood Count Auto Diff Stat Lab 08/04/23 17:45 Completed Comprehensive Metabolic Panel Stat Lab 08/04/23 17:45 Completed Drug Screen,Urine Stat Lab 08/04/23 18:20 Results Magnesium Stat Lab 08/04/23 17:45 Completed Phosphorous Stat Lab 08/04/23 17:45 Completed Procalcitonin Stat Lab 08/04/23 17:45 Completed Prothrombin Time INR Stat Lab 08/04/23 17:45 Completed Rapid PCR Covid and Flu A/B Stat Lab 08/04/23 18:15 Completed T4 (Thyroxine) Stat Lab 08/04/23 17:45 Completed Thyroid Stimulating Hormone Stat Lab 08/04/23 17:45 Completed Troponin I Q3H Lab 08/04/23 21:00 Ordered Troponin I Q3H Lab 08/05/23 00:00 Ordered Troponin I Stat Lab 08/04/23 17:45 Completed UA [Urinalysis and Microscopic] Stat Lab 08/04/23 18:20 Completed Blood Culture Stat Micro 08/04/23 17:51 Received Venous Blood Gas Stat RT 08/04/23 17:52 Completed ECG Data Tracing #1: I reviewed this ECG and interpreted as documented below: Sinus tachycardia with a ventricular rate of 117 bpm. Some motion artifact noted. Nonspecific ST/T wave abnormality but does not meet STEMI criteria. ECG initial impression date: 08/04/23 ECG initial impression time: 17:41 Tracing #2: I reviewed this ECG and interpreted as documented below: Sinus tachycardia with a ventricular rate of [address] elevations concerning for STEMI. Nonspecific ST/T wave changes. Not significantly changed from prior EKG aside from slight improvement in heart rate. ECG initial impression date: 08/04/23 ECG initial impression time: 20:34 Medical Decision Narrative: In summary, this patient is a 63-year-old female presenting to the Emergency Department for evaluation of altered mental status and shortness of breath in the setting of chronic respiratory failure. She was reportedly hooked up to an empty oxygen take at home. Patient is somnolent and does not not contribute to history. Differential diagnoses considered include but are not limited to pneumonia, respiratory failure, sepsis, urinary tract infection, CVA, viral syndrome, CO2 narcosis. Ruling out the most morbid conditions drove assessment. On exam, the patient is somnolent with coarse bilateral rales/crackles/wheezing. She is tachycardic, tachypneic, and has temperature of 99.7 ?F. Workup included broad lab evaluation including infectious, metabolic, and tox workup as well as CT scan of the head, CTA of the chest, CT abdomen pelvis with IV contrast and EKG. 1L bolus of IV fluids was initiated, however patient was not given a sepsis bolus as the patient has respiratory failure and I feel that rapid volume resuscitation could worsen her respiratory failure. She was given duonebs x 3 as well as IV methylprednisolone. EKG does not demonstrate any concerns for STEMI, the patient does have sinus tachycardia. Patient was found to have leukocytosis, which along with her tachypnea, tachycardia, and borderline fever, make me concerned for sepsis. I independently interpreted CT scans prior to radiology read and noted the patient has concern for again, she was not given a full sepsis bolus, as she has respiratory failure and I do not want to risk volume overload. She was given 1 L bolus as well as IV acetaminophen and Toradol for improvement in fever. She was found to have hypokalemia, for which IV replacement was ordered. Fluids were running very slow,as she does have a mildly elevated BNP and we don't want to volume overload her, but she has had gradual improvement in her perfusion and heart rate after IV fluid resuscitation. She started on IV vancomycin and Zosyn for with concern for potential aspiration pneumonia and sepsis secondary to pneumonia. Initial troponin is elevated at 0.08, however the patient does not have any significant changes on repeat EKG. Second troponin is pending. I feel she likely has cardiac insult from her respiratory failure with potentially a type II NSTEMI. Ultimately, I feel the patient would benefit from admission for close monitoring given her elevated troponins, pneumonia, and sepsis. I had an interactive discussion with the hospitalist who admitted the patient for further evaluation and management. Critical Care Critical Care Time Critical Care Time: Yes Attestation: On 08/04/23, the high probability of a clinically significant, sudden or life threatening deterioration of the following system(s) required my full and direct attention, intervention and personal management. The time I documented below is in addition to time spent performing reported procedures but includes the following listed in this critical care notation. Total Time Total Critical Care Time: 30
[2023-08-04 18:02] LABS: Basophils # 0.1 K/mm3 (0-0.2); Basophils % 0.4 % (0.1-2.0); Eosinophils # 0.1 K/mm3 (0.0-0.4); Eosinophils % 0.2 % (0.1-12.0); Hematocrit 48.9 % (37.0-47.0); Hemoglobin 15.5 g/dL (12.2-16.2); Lymphocytes # 0.7 K/mm3 (0.7-4.5); Mean Corpuscular HGB Conc 31.8 g/dL (31.8-35.4); Mean Corpuscular Hemoglobin 31.9 pg (27.0-31.2); Mean Corpuscular Volume 100.1 fl (81-99); Mean Platelet Volume 9.3 fl (7.4-10.4); Monocytes # 0.7 K/mm3 (0.1-1.0); Monocytes % 3.2 % (1.7-9.3); Neutrophils # 20.8 K/mm3 (1.8-7.8); Neutrophils % 93.2 % (37.0-80.0); Platelet Count 299 K/mm3 (142-424); Red Blood Count 4.88 M/mm3 (4.20-5.40); White Blood Count 22.4 K/mm3 (4.8-10.8)
[2023-08-04 18:04] LABS: MANUAL DIFFERENTIAL MANUAL DIFFERENTIAL (MANUAL DIFF)
[2023-08-04 18:11] LABS: Activated Partial Thrombo Time 28.8 seconds (22.8-30.6); INR 1.02 (0.9-1.1)
[2023-08-04 18:18] LABS: Coronavirus 19, PCR Not Detected (NotDetected); Influenza A, PCR Not Detected (NotDetected); Influenza B, PCR Not Detected (NotDetected)
[2023-08-04 18:24] LABS: Microscopic, Urine URINE MICROSCOPIC (MICROSCOPIC)
[2023-08-04 18:26] LABS: Lymphocytes % 9 % (10-50); Monocytes % 5 % (2-9); Neutrophils % 86 % (42-76); Platelet Estimate Normal; RBC Morphology Normal; Total Cells Counted 100
[2023-08-04 18:39] LABS: VBG HCO3 28.4 mmol/L (23-30); VBG PH 7.31 mmol/L (7.31-7.41); VBG PO2 33.8 mmol/L (28-40); VBG Total CO2 30.1 mmol/L (23-27)
--- NOTE | 2023-08-04 18:39 | PC.NURSE ---
resp called with critical results lactic 2.7, bicarb 28.4, ph 7.31, co2 58, and 02 33.8. er aware.
[2023-08-04 18:42] LABS: Lactate Venous 2.7 mmol/L (0.4-2.0)
[2023-08-04 18:43] LABS: Appearance,Urine CLEAR (Clear); Blood, Urine Negative (Negative); Color,Urine YELLOW (Yellow); Glucose,Urine (UA) TRACE (Negative); Ketones,Urine Negative (Negative); Leukocyte Esterase,Urine Negative (Negative); Nitrate,Urine Negative (Negative); Protein,Urine Negative (Negative); Specific Gravity, Urine 1.015 (1.005-1.030); Urobilinogen,Urine 0.2 EU/dl (0.2)
[2023-08-04] MEDS: METHYLPREDNISOLONE SOD SUCC 125MG VIAL 125 MG IV (18:49)
[2023-08-04] MEDS: LACTATED RINGERS 1000ML 1,000 ML 999 ML IV (18:49)
[2023-08-04 18:53] LABS: Bilirubin,Urine 1+ (Negative)
[2023-08-04 18:55] LABS: Chloride 99 mmol/L (98-107); Sodium 137 mmol/L (136-145)
[2023-08-04 18:57] LABS: Alanine Aminotransferase 33 U/L (12-78); Alkaline Phosphatase 91 U/L (38-126); Aspartate Amino Transferase 39 U/L (14-36); Bilirubin,Total 0.4 mg/dl (0.2-1.3); Blood Urea Nitrogen 25 mg/dl (7-17); Creatinine Clearance Estimated 60 mL/min (50-200); Estimated Glomerular Filt Rate 45 ml/min (>60); GFR (African American) 55 ML/MIN (>60)
[2023-08-04 18:58] LABS: Albumin/Globulin Ratio 1.3 (1.1-1.8); Calcium 9.4 mg/dl (8.4-10.2); Carbon Dioxide 33 mmol/L (22.0-30.0); Globulin 3.2 g/dL (1.3-3.2); Glucose 205 mg/dl (74-100); Magnesium 1.5 mg/dl (1.6-2.3); Phosphorous 2.7 mg/dl (2.5-4.5); Total Protein,Serum 7.2 g/dl (6.3-8.2)
--- NOTE | 2023-08-04 19:02 | PC.NURSE ---
reported critical k+ of 3.0 to Lluvia Garduno, and called RT for breathing treatment
[2023-08-04 19:07] LABS: NT Pro Brain Natriuretic Pep. 4390 pg/mL (0-125)
[2023-08-04 19:09] LABS: Troponin I 0.08 ng/ml (0.00-0.034)
[2023-08-04 19:14] LABS: T4 (Thyroxine) 8.2 ug/dl (5.53-11.0)
[2023-08-04] MEDS: ACETAMINOPHEN 1,000MG/100ML VIAL 1000 MG IV (19:19)
[2023-08-04] MEDS: KETOROLAC 30MG/ML VIAL 15 MG IV (19:19)
[2023-08-04 19:20] LABS: Procalcitonin 42.5 ng/mL (0.0-2.0)
[2023-08-04] MEDS: SODIUM CHLORIDE 0.9% 10ML SYR (RAD ONLY) 10 ML IV (19:22)
[2023-08-04] MEDS: IOPAMIDOL-370 (76%);100ML BOTTLE 100 ML IV (19:22)
[2023-08-04] MEDS: 0.9 % SODIUM CHLORIDE 50 ML VIAL IV (19:22)
[2023-08-04] MEDS: KCl 20mEq/100ml 100 ML 50 MEQ IV (19:26)
[2023-08-04] MEDS: IPRATROPIUM/ALBUTEROL 3 ML NEB 9 ML IH (19:27)
[2023-08-04 19:28] LABS: Thyroid Stimulating Hormone 0.28 uIU/mL (0.465-4.68)
[2023-08-04 19:29] LABS: Barbiturates Screen,Urine Negative ng/ml (<200); Benzodiazepines Screen,Urine Negative ng/ml (<200)
[2023-08-04 19:31] LABS: Cannabinoid Screen,Urine Positive ng/ml (<50)
[2023-08-04 19:32] LABS: Cocaine Screen,Urine Negative ng/ml (<300); Methadone Screen,Urine Negative ng/ml (<300)
[2023-08-04 19:33] LABS: Phencyclidine Screen,Urine Negative ng/ml (<25)
[2023-08-04 19:34] LABS: Opiate Screen,Urine Negative ng/ml (<300)
[2023-08-04] MEDS: VANCOMYCIN CONSULT REQUEST 1 EACH NOTAPPLIC (20:19)
--- NOTE | 2023-08-04 20:29 | ECG_ITS ---
APPROVED REPORT Exam: Resting ECG HR:104 bpm ECG Measurements Heart Rate 104 AXES [place] 128 P 75 QRSd 90 QRS 93 QT 366 T 91 QTc 426 Conclusion SINUS TACHYCARDIA WITH FREQUENT ECTOPIC PREMATURE COMPLEXES BORDERLINE RIGHT AXIS DEVIATION [QRS AXIS > 90] NONSPECIFIC T-WAVE ABNORMALITY Electronically signed by : VASILE TAN, 08/04/2023 21:50:55
--- NOTE | 2023-08-04 20:39 | PC.NURSE ---
called switch house operator for bed
--- NOTE | 2023-08-04 20:41 | PC.NURSE ---
OBSERVATION ADMISSION TO 207 WITH DX OF SEPSIS, PNA, RESP FAILURE AND ELEVATED TROP. TO SERVICE OF THE HOSPITALIST.
--- NOTE | 2023-08-04 20:48 | EXP.HP ---
History of Present Illness *Admission Date: 08/04/23 *Reason for visit:: AMS *History of present illness: This is a 63-year-old female with a PMHx of COPD on home oxygen, chronic tobacco use, fibromyalgia, peripheral neuropathy, renal insufficiency, and anxiety presenting by EMS with concern for altered mental status and difficulty breathing. patient presented on mental alter and does not contribute to history given acuity of condition. Data collected mostly by chart review, ED documentation and EMS report. According to EMS, the family had gone to check on the patient today earlier this morning and found her having some difficulty breathing, so they placed her on her home oxygen. They left and later found her with profoundly altered mental status and worsened difficulty breathing. Given this, they called EMS, who noted that upon their arrival, the patient was hooked up to an oxygen tank that was completely empty. They noted her oxygen saturation was 86% on room air. They advised they gave her albuterol and placed on supplemental oxygen and brought her in for evaluation. Patient is somnolent but will wake up to voice and tell you what her name is. She follows commands. Admitted for management and treatment. [facility] Disclaimer: The information contained in this section may have been updated after the patient was seen, as this information can be updated by other users. Medical History Neuropathy Family History (Updated 08/04/23 @ 23:21 by Juju Lopez RN) Other No significant family history Social History (Updated 08/04/23 @ 23:22 by Juju Lopez RN) Smoking Status: Current every day smoker tobacco type: cigarettes packs per day: 1 second hand exposure: Yes alcohol intake: current substance use type: marijuana current occupational status: disabled Travel in the last 8 weeks: None household members: none housing: house current occupational exposures/hazards: No caffeine: No Review of Systems Review of Systems Review of systems:: unable to obtain Meds Home Medications and Allergies Home Medications Medication Instructions Recorded Confirmed Type albuterol sulfate 90 mcg/actuation 2 puff inhalation Q4HP PRN 08/05/23 08/05/23 History aerosol inhaler (Ventolin HFA) Shortness Of Breath brimonidine 0.2 % eye drops 1 drp Eye-Both BID 08/05/23 08/05/23 History budesonide-formoterol HFA 160 2 puff inhalation BID Breathing 08/05/23 08/05/23 History mcg-4.5 mcg/actuation aerosol Problems inhaler (Symbicort) cetirizine 10 mg tablet 10 mg PO DAILYP PRN Allergy 08/05/23 08/05/23 History Symptoms cholecalciferol (vitamin D3) 50 50 mcg PO DAILY Supplement 08/05/23 08/05/23 History mcg (2,000 unit) tablet diltiazem HCl 120 mg 120 mg PO DAILY Heart Rate 08/05/23 08/05/23 History capsule,extended release 12 hr duloxetine 60 mg capsule,delayed 60 mg PO DAILY 08/05/23 08/05/23 History release hydrochlorothiazide 25 mg tablet 25 mg PO DAILY Fluid 08/05/23 08/05/23 History latanoprost 0.005 % eye drops 1 drp Eye-Both HS 08/05/23 08/05/23 History levothyroxine 75 mcg tablet 75 mcg PO DAILY Thyroid 08/05/23 08/05/23 History pantoprazole 40 mg tablet,delayed 40 mg PO DAILY Acid Reflux 08/05/23 08/05/23 History release tiotropium bromide 2.5 2 puff inhalation DAILY Breathing 08/05/23 08/05/23 History mcg/actuation mist for inhalation Problems (Spiriva Respimat) New Prescriptions to Start Prescriptions: Allergies Allergy/AdvReac Type Severity Reaction Status Date / Time No Known Allergies Allergy Verified 02/27/19 16:10 Exam Data for Last 24 hours Vital signs and Labs for Last 24 Hours: Temp Pulse Resp BP Pulse Ox O2 Del Method O2 Flow Rate 99.7 F H 100 H 29 H 135/82 92 L Nasal Cannula 2 08/04/23 17:47 08/04/23 19:47 08/04/23 18:41 08/04/23 18:41 08/04/23 18:41 08/04/23 18:41 08/04/23 18:41 Laboratory Results - last 24 hr 08/04/23 17:45: WBC 22.4 H*, RBC 4.88, Hgb 15.5, Hct 48.9 H, MCV 100.1 H, MCH 31.9 H, MCHC 31.8, RDW 14.0, Plt Count 299, MPV 9.3, Neut % (Auto) 93.2 H, Lymph % (Auto) 3.0 L, [place] % (Auto) 3.2, Eos % (Auto) 0.2, Baso % (Auto) 0.4, Neut # (Auto) 20.8 H, Lymph # (Auto) 0.7, [place] # (Auto) 0.7, Eos # (Auto) 0.1, Baso # (Auto) 0.1, Total Counted 100, Neutrophils % (Manual) 86 H, Lymphocytes % (Manual) 9 L, Monocytes % (Manual) 5, Platelet Estimate Normal, RBC Morphology Normal, PT 11.0, INR 1.02, APTT 28.8, Sodium 137, Potassium 3.0 L, Chloride 99, Carbon Dioxide 33 H, Anion Gap 8.0, BUN 25 H, Creatinine 1.20 H, Estimated Creat Clear 60, Estimated GFR 45 L, Est GFR ( Amer) 55 L, Glucose 205 H, Calcium 9.4, Phosphorus 2.7, Magnesium 1.5 L, Total Bilirubin 0.4, AST 39 H, ALT 33, Alkaline Phosphatase 91, Troponin I 0.08 H, NT-Pro-B Natriuret Pep 4390 H, Total Protein 7.2, Albumin 4.0, Globulin 3.2, Albumin/Globulin Ratio 1.3, Procalcitonin 42.5 H, TSH 0.28 L, Thyroxine (T4) 8.2 08/04/23 17:52: VBG pH 7.31, VBG pCO2 58.0 H, VBG pO2 33.8, VBG HCO3 28.4, VBG Total CO2 30.1 H, VBG O2 Saturation 62.0, VBG Base Excess 2.0, VBG Lactic Acid 2.7 H 08/04/23 18:15: SARS-CoV-2 (PCR) Not detected, Influenza A Untype (PCR) Not detected, Influenza Type B (PCR) Not detected 08/04/23 18:20: Urine Color Yellow, Urine Appearance Clear, Urine pH 6.0, Ur Specific [place] 1.015, Urine Protein Negative, Urine Glucose (UA) Trace, Urine Ketones Negative, Urine Blood Negative, Urine Nitrate Negative, Urine Bilirubin 1+ A, Urine Urobilinogen 0.2, Ur Leukocyte Esterase Negative, Urine RBC None, Urine WBC None, Ur Squamous Epith Cells 3-5, Urine Bacteria None, Urine Opiates Screen Negative, Urine Methadone Screen Negative, Ur Barbituates Screen Negative, Ur Phencyclidine Scrn Negative, U Benzodiazepines Scrn Negative, Urine Cocaine Screen Negative, U Marijuana (THC) Screen Positive H I & O for Last 24 hours: Intake & Output 08/01/23 08/02/23 08/03/23 08/04/23 23:59 23:59 23:59 23:59 Weight 79.379 kg Constitutional Constitutional: somnolent and obtunded *Routine HEENT Exam Head: Present normocephalic Eye: Present EOMI and PERRL ENT: Present mucous membranes moist *Routine Neck Exam Neck: Present supple; Absent lymphadenopathy *Routine Respiratory Exam Respiratory: Present decreased breath sounds, CTA bilaterally, wheezes, crackles, diminished air movement and symmetric chest movement *Routine Cardiovascular Exam Cardiovascular: Present RRR, Normal S1, Normal S2 and bradycardia *Routine Abdominal Exam Abdominal: Present soft and normoactive bowel sounds; Absent tenderness *Routine Rectal Exam Rectal:: deferred *Routine Genitalia Exam Genitalia:: deferred *Routine Extremities Exam Extremities: Absent cyanosis, clubbing or edema *Routine Skin Exam Skin: Present warm; Absent rash *Routine Neurological Exam Neurological: Present altered mental status Routine Psychiatric Exam Psychiatric: Present unable to assess H&P: Result Imaging and Cardiology EKG: Status: image reviewed by me, Preliminary report and final report CT scan - chest: Status: image reviewed by me, Preliminary report and final report CT scan - abdomen: Status: image reviewed by me, Preliminary report and final report CT scan - head: Status: image reviewed by me, Preliminary report and final report Assessment and Plan *Assessment and plan (1) Sepsis: Status: Acute Qualifiers: Acute respiratory failure type: with hypercapnia Sepsis acute organ dysfunction status: with acute organ dysfunction Sepsis type: sepsis due to unspecified organism Severe sepsis acute organ dysfunction type: acute respiratory failure Severe sepsis shock status: without septic shock Qualified Code(s): A41.9 - Sepsis, unspecified organism; R65.20 - Severe sepsis without septic shock; J96.02 - Acute respiratory failure with hypercapnia Category: Medical Code(s): A41.9 - Sepsis, unspecified organism (2) Acute and chronic respiratory failure: Status: Acute Qualifiers: Respiratory failure complication: hypercapnia Qualified Code(s): J96.22 - Acute and chronic respiratory failure with hypercapnia Category: Medical Code(s): J96.20 - Acute and chronic respiratory failure, unspecified whether with hypoxia or hypercapnia (3) Pneumonia: Status: Acute Qualifiers: Laterality: right Lung location: lower lobe of lung Pneumonia type: due to unspecified organism Qualified Code(s): J18.9 - Pneumonia, unspecified organism Category: Medical Code(s): J18.9 - Pneumonia, unspecified organism (4) Altered mental status: Status: Acute Qualifiers: Altered mental status type: disorientation Qualified Code(s): R41.0 - Disorientation, unspecified Category: Medical Code(s): R41.82 - Altered mental status, unspecified (5) Elevated brain natriuretic peptide (BNP) level: Status: Acute Category: Medical Code(s): R79.89 - Other specified abnormal findings of blood chemistry (6) Elevated troponin: Status: Acute Category: Medical Code(s): R79.89 - Other specified abnormal findings of blood chemistry (7) MANDIE (acute kidney injury): Status: Acute Category: Medical Code(s): N17.9 - Acute kidney failure, unspecified (8) Hypokalemia: Status: Acute Category: Medical Code(s): E87.6 - Hypokalemia Plan 63-year-old female with a PMHx of COPD on home oxygen, chronic tobacco use, fibromyalgia, peripheral neuropathy, renal insufficiency, and anxiety presenting by EMS with concern for altered mental status and difficulty breathing. on arrival patient was found to have leukocytosis, which along with her tachypnea, tachycardia, and borderline fever, concerned for sepsis. conservative sepsis work up was initiated. CT scan of the head, CTA of the chest, CT abdomen pelvis with IV contrast and EKG. Imaging reviewed. Started on IV vancomycin and Zosyn for potential aspiration pneumonia and sepsis secondary to pneumonia. Initial troponin is elevated at 0.08, however the patient does not have any significant changes on repeat EKG. Likely has cardiac insult from her respiratory failure with potentially a type II NSTEMI. All findings were widely discussed with ED for admission. Medicine decided to admit for further management. Problems addressed as follows: -Sepsis with acute on chronic hypercapnic respiratory failure, secondary to pneumonia: AMS Admit patient for medical services. Dispo stepdown Monitor for O2. Currently on 3 L of oxygen. Weaning off respiratory therapy to assist. Started on vancomycin and Zosyn at the ER. Will continue with vancomycin and cefepime Aspiration precaution Keep n.p.o.. Nursing to assess for bedside swallow test. May advance diet as tolerated, and/or when mentation improved Blood culture pending Continue IV resuscitation. Gentle Repeat and monitor labs -Elevated BNP without diagnosis of CHF: One-time dose of Lasix IV given. Improved shortness of breath and oxygen saturations May obtain echo in the morning -Elevated troponin, likely due to oxygen demand: Continue monitor for cardiac function. On Telemetry Troponins are trending EKGs reviewed CTA negative Acute kidney injury: Hypokalemia Continue IV hydration hydration Repeat a.m. monitor CMP in the morning Encouraged to increase p.o. intake, when mentation improves Monitor renal function renal function. Avoid nephrotoxic's medications Potassium replaced by protocol. Watch for another electrolyte imbalance Lovenox for DVT prophylaxis. On Protonix Full code Rounded on patient after nurse practitioner. Personally examined and interviewed patient. Agree with exam findings and care plan as documented. PSI/port score of 113. This makes her class IV risk with ~ 9% mortality, necessitating inpatient care.
--- NOTE | 2023-08-04 20:54 | PC.NURSE ---
STEPDOWN BED ORDERED, STAFF TO MOVE BEDS TO ACCOMMODATE.
[2023-08-04] MEDS: PIPERACILLIN/TAZO 3.375 GM in 0.9 % SODIUM CHLORIDE 50 ML IV (20:56)
--- NOTE | 2023-08-04 20:59 | PC.NURSE ---
report called to 2nd floor nurse
[2023-08-04] MEDS: VANCOMYCIN/WATER FOR INJ (PEG) 1.5 GM/300 ML PIGGYBACK IV (21:34)
[2023-08-04 22:17] LABS: Amphetamine/Metha Screen,Urine Positive ng/ml (<1000)
[2023-08-04 22:40] LABS: Reflex Lactic Add Lactic Reflex
[2023-08-04] MEDS: 0.9 % SODIUM CHLORIDE 1000ML 1,000 ML 50 ML IV (22:44)
[2023-08-04] MEDS: ENOXAPARIN 40MG/0.4ML SYRINGE 40 MG SQ (22:44)
[2023-08-04] MEDS: PANTOPRAZOLE 40MG TABLET 40 MG PO (22:44)
[2023-08-04 23:19] LABS: Lactic Acid Follow Up (RFLX 1) 1.5 mmol/L (0.7-2.1)
[2023-08-05] VITALS (10 sets, daily range): BP systolic 107–151; BP diastolic 66–81; PULSE 81–106; RESP 16–20; TEMP 36.7–37.8; O2SAT 91–98; BMI 28.1
[2023-08-05] MEDS: KCl 20mEq/100ml 100 ML 15 MEQ IV ×2 (00:20→06:38)
[2023-08-05] MEDS: CEFEPIME HCL 2 GM in 0.9 % SODIUM CHLORIDE 100 ML IV ×2 (00:20→06:45)
[2023-08-05] MEDS: FUROSEMIDE 40MG/4ML VIAL 40 MG IV ×2 (00:45→09:20)
[2023-08-05 00:47] LABS: Troponin I 0.07 ng/ml (0.00-0.034)
[2023-08-05] MEDS: ACETAMINOPHEN 325MG TAB 650 MG PO ×2 (01:22→13:04)
[2023-08-05] MEDS: MAGNESIUM SULFATE IN WATER 2 GM/50 ML PIGGYBACK IV (02:15)
--- NOTE | 2023-08-05 04:42 | PC.NURSE ---
Patient A&O x 3; VSS WNL with 2L NC. Patient to received 1 round of Magnesium and have started IV Potassium - patient c/o pain in arm where infusing per MD v.o. reduced to 15mL/hr with NS 75mL/hr. Administered 1 round of Antibiotics. Patient voices no further concerns.
--- NOTE | 2023-08-05 05:40 | CA_ITS ---
APPROVED REPORT EXAM: Comprehensive 2D, Doppler, and color-flow Echocardiogram Rail Maintenance Worker: DENISE Ulloa, RVS Ht: 5 ft 6 in Wt: 175lbs BSA: 1.89 BP: 132/82 mmHg Indications: COPD, Pneumonia, Home O2, elevated troponin, Smoker, SOB Echo Enhancing Agent Comments: Extremely limited windows due to body habitus & lung impedance 2D Dimensions IVSd 0.76 cm LVEF (Visual) 58.60 % PWd 0.89 cm LVDd 4.86 cm LVDs 3.35 cm Left Atrium 2.77 cm M-Mode Dimensions LA Diam 3.20 cm (1.9-4.0) EPSs 0.86 cm TAPSE 1.75 (<1.7) LV Diastology E Decel Time 207 (160-240 msec) E/A Ratio 0.88 MED A' 14.00 cm/s LAT A' 5.60 cm/s Aortic Valve NAS Index 1.19 cm2/m2 AoV Peak Luis. 97.0 (50-130 cm/s) AO Peak GR. 3.80 mmHg AO Mean GR. 1.90 (<5 mmHg) AO VTI 14.4 (18-25 cm) NAS (VTI) 2.31 (2.5-4.5 cm2) Mitral Valve MV A Velocity 66.0 (40-130 cm/s) E/A Ratio 0.88 Left Ventricle The left ventricle is normal size. The left ventricular systolic function is normal. The left ventricular ejection fraction is within the normal range. There is increased LV wall thickness. Regional wall motion cannot be evaluated due to technically difficult study. Diastolic function is indeterminate. LVEF is 55%. Right Ventricle The right ventricle is not well-visualized. Atria Left atrium is grossly normal in size. The right atrium is not well-visualized. Aortic Valve The aortic valve is mildly thickened. There is no aortic valvular stenosis. No aortic regurgitation is present. Mitral Valve The mitral valve is normal in structure. No evidence of mitral valve stenosis. There is no mitral valve regurgitation noted. Tricuspid Valve The tricuspid valve leaflets are not well-visualized. Trace tricuspid regurgitation. There is insufficient TR jet to estimate RVSP. Pulmonic Valve The pulmonic valve is not well-visualized. Great Vessels The aortic root is normal in size. The ascending aorta is not well-visualized. The IVC is not well-visualized. Pericardium There is no pericardial effusion. Other Information Study Quality: Technically Difficult. Technically limited study due to body habitus, lung disease. Conclusion Technically difficult study due to poor acoustic windows and underlying lung disease. Normal LV systolic function. The right ventricle is not well-visualized. No significant stenosis or regurgitation in the visualized valves. Electronically signed by : Alysha Shi MD 08/08/2023 22:02:44
[2023-08-05 07:10] LABS: Basophils # 0.2 K/mm3 (0-0.2); Eosinophils % 0.1 % (0.1-12.0); Hematocrit 45.1 % (37.0-47.0); Hemoglobin 14.3 g/dL (12.2-16.2); Lymphocytes # 0.5 K/mm3 (0.7-4.5); Lymphocytes % 2.8 % (10-50); Mean Corpuscular HGB Conc 31.8 g/dL (31.8-35.4); Mean Corpuscular Hemoglobin 31.6 pg (27.0-31.2); Mean Corpuscular Volume 99.3 fl (81-99); Mean Platelet Volume 9.2 fl (7.4-10.4); Monocytes # 0.4 K/mm3 (0.1-1.0); Monocytes % 2.1 % (1.7-9.3); Neutrophils # 16.5 K/mm3 (1.8-7.8); Platelet Count 249 K/mm3 (142-424); Red Blood Count 4.54 M/mm3 (4.20-5.40); Red Cell Distribution Width 14.3 % (11.5-17.5); White Blood Count 17.5 K/mm3 (4.8-10.8)
[2023-08-05 07:11] LABS: Alanine Aminotransferase 24 U/L (12-78); Albumin Level 3.3 g/dl (3.5-5.0); Albumin/Globulin Ratio 1.1 (1.1-1.8); Alkaline Phosphatase 66 U/L (38-126); Anion Gap 11.1 mEq/L (5-15); Aspartate Amino Transferase 28 U/L (14-36); Bilirubin,Total 0.3 mg/dl (0.2-1.3); Calcium 8.7 mg/dl (8.4-10.2); Carbon Dioxide 27 mmol/L (22.0-30.0); Chloride 102 mmol/L (98-107); Globulin 3.1 g/dL (1.3-3.2); Glucose 192 mg/dl (74-100); Magnesium 2.2 mg/dl (1.6-2.3); Potassium 3.1 mmoL/L (3.5-5.1); Sodium 137 mmol/L (136-145); Total Protein,Serum 6.4 g/dl (6.3-8.2)
[2023-08-05 07:15] LABS: Blood Urea Nitrogen 26 mg/dl (7-17)
[2023-08-05 07:17] LABS: MANUAL DIFFERENTIAL MANUAL DIFFERENTIAL (MANUAL DIFF)
--- NOTE | 2023-08-05 07:47 | HMH.PHAINT1 ---
Pharmacy Intervention Comments: MEDICATION RECONCILIATION COMPLETED ON PATIENT USING EXTERNAL FILL HISTORY FROM PHARMACY. -NICOLAS PARSONS, LUISD
--- NOTE | 2023-08-05 08:03 | PC.NURSE ---
Student nurse, Barbara Elmore will be providing care under my supervision.
[2023-08-05 08:11] LABS: Lymphocytes % 6 % (10-50); Monocytes % 4 % (2-9); Neutrophils % 65 % (42-76); Total Cells Counted 100
--- NOTE | 2023-08-05 08:12 | P.PN_ITS ---
Subjective *Date: 08/05/23 *Time: 15:58 Interval history: Patient more alert today. Responding to therapy. On 2 L nasal cannula this morning. Necessitating inpatient management. Tolerating p.o. intake. Denies chest pain. Afebrile overnight. Medical Exam Vital signs and Labs for Last 24 Hours: Vital Signs Temp Pulse Pulse Resp BP BP Pulse Ox 08/05/23 06:30 08/05/23 06:00 98.9 F 81 18 121/76 93 L 08/05/23 05:00 08/05/23 04:00 99.3 F 08/05/23 04:00 90 08/05/23 04:00 92 L 08/05/23 03:00 08/05/23 02:00 98.0 F 86 18 107/66 L 92 L 08/05/23 01:00 08/05/23 00:00 90 08/05/23 00:00 100.0 F H 08/04/23 23:00 08/04/23 22:40 90 08/04/23 22:26 93 L 08/04/23 22:00 98.0 F 88 18 95/56 L 97 08/04/23 22:00 90 24 108/68 L 95 08/04/23 21:34 99.5 F 96 H 22 129/72 08/04/23 21:30 92 H 23 129/72 96 08/04/23 21:00 127/67 95 08/04/23 20:30 104 H 28 H 115/64 95 08/04/23 20:00 100 H 26 H 118/71 96 08/04/23 19:47 100 H 08/04/23 19:47 101 H 08/04/23 19:30 100 H 25 H 125/75 97 08/04/23 19:00 102 H 26 H 138/75 96 08/04/23 18:41 107 H 29 H 135/82 92 L 08/04/23 17:47 99.7 F H 08/04/23 17:39 100.7 F H 116 H 18 134/79 98 O2 Del Method O2 Flow Rate 08/05/23 06:30 Nasal Cannula 2 08/05/23 06:00 Nasal Cannula 2 08/05/23 05:00 Nasal Cannula 1.5 08/05/23 04:00 08/05/23 04:00 08/05/23 04:00 Nasal Cannula 1.5 08/05/23 03:00 Nasal Cannula 1.5 08/05/23 02:00 Nasal Cannula 1.5 08/05/23 01:00 Nasal Cannula 1.5 08/05/23 00:00 08/05/23 00:00 08/04/23 23:00 Nasal Cannula 1.5 08/04/23 22:40 08/04/23 22:26 Nasal Cannula 08/04/23 22:00 Nasal Cannula 1.5 08/04/23 22:00 Nasal Cannula 08/04/23 21:34 Nasal Cannula 08/04/23 21:30 Nasal Cannula 08/04/23 21:00 Nasal Cannula 08/04/23 20:30 Nasal Cannula 08/04/23 20:00 Nasal Cannula 08/04/23 19:47 08/04/23 19:47 08/04/23 19:30 Nasal Cannula 08/04/23 19:00 Nasal Cannula 08/04/23 18:41 Nasal Cannula 2 08/04/23 17:47 08/04/23 17:39 Room Air Intake and Output 08/04/23 08/05/23 08/05/23 23:59 07:59 15:59 Intake Total 2390 / 2390 Output Total 700 / 700 Balance 1690 / 1690 Intake: Intake, Oral Amount 240 / 240 Intake, Total IV Amount 2150 / 2150 0.9 % Sodium Chloride 1000ML 1, 450 / 450 000 ml @ 50 mls/hr IV .Q20H KADY Rx#:[id number] Cefepime HCl 2 gm In 0.9 % 100 / 100 Sodium Chloride 100 ml @ 200 mls/hr IV Q8H KADY Rx#:[id number] KCl 20mEq/100ml 100 ml @ 50 mls 100 / 100 /hr IV ONCE ONE Rx#:[id number] KCl 20mEq/100ml 100 ml @ 50 mls 100 / 100 /hr IV Q2H KADY Rx#:[id number] Lactated Ringers 1000ML 1,000 1000 / 1000 ml @ 999 mls/hr IV .Q1H1M ONE Rx#:[id number] Magnesium Sulfate in Water 2 gm 50 / 50 In 50 ml @ 50 mls/hr IV ONCE ONE Rx#:[id number] Piperacillin/Tazo 3.375 gm In 0 100 / 100 .9 % Sodium Chloride 50 ml @ 100 mls/hr IV ONCE ONE Rx#: [id number] Vancomycin/Water For Inj (Peg) 250 / 250 1.5 gm In 300 ml @ 150 mls/hr IV ONCE ONE Rx#:[id number] Output: Output, Urine Amount 700 / 700 Other: Number of Unmeasured Voids 0 Weight 79.379 kg 79.4 kg Patient Weight 08/05/23 23:59 Weight 79.4 kg Laboratory Results - last 24 hr 08/04/23 17:45: WBC 22.4 H*, RBC 4.88, Hgb 15.5, Hct 48.9 H, MCV 100.1 H, MCH 31.9 H, MCHC 31.8, RDW 14.0, Plt Count 299, MPV 9.3, Neut % (Auto) 93.2 H, Lymph % (Auto) 3.0 L, [place] % (Auto) 3.2, Eos % (Auto) 0.2, Baso % (Auto) 0.4, Neut # (Auto) 20.8 H, Lymph # (Auto) 0.7, [place] # (Auto) 0.7, Eos # (Auto) 0.1, Baso # (Auto) 0.1, Total Counted 100, Neutrophils % (Manual) 86 H, Lymphocytes % (Manual) 9 L, Monocytes % (Manual) 5, Platelet Estimate Normal, RBC Morphology Normal, PT 11.0, INR 1.02, APTT 28.8, Sodium 137, Potassium 3.0 L, Chloride 99, Carbon Dioxide 33 H, Anion Gap 8.0, BUN 25 H, Creatinine 1.20 H, Estimated Creat Clear 60, Estimated GFR 45 L, Est GFR ( Amer) 55 L, Glucose 205 H, Calcium 9.4, Phosphorus 2.7, Magnesium 1.5 L, Total Bilirubin 0.4, AST 39 H, ALT 33, Alkaline Phosphatase 91, Troponin I 0.08 H, NT-Pro-B Natriuret Pep 4390 H, Total Protein 7.2, Albumin 4.0, Globulin 3.2, Albumin/Globulin Ratio 1.3, Procalcitonin 42.5 H, TSH 0.28 L, Thyroxine (T4) 8.2 08/04/23 17:52: VBG pH 7.31, VBG pCO2 58.0 H, VBG pO2 33.8, VBG HCO3 28.4, VBG Total CO2 30.1 H, VBG O2 Saturation 62.0, VBG Base Excess 2.0, VBG Lactic Acid 2.7 H 08/04/23 18:15: SARS-CoV-2 (PCR) Not detected, Influenza A Untype (PCR) Not detected, Influenza Type B (PCR) Not detected 08/04/23 18:20: Urine Color Yellow, Urine Appearance Clear, Urine pH 6.0, Ur Specific [place] 1.015, Urine Protein Negative, Urine Glucose (UA) Trace, Urine Ketones Negative, Urine Blood Negative, Urine Nitrate Negative, Urine Bilirubin 1+ A, Urine Urobilinogen 0.2, Ur Leukocyte Esterase Negative, Urine RBC None, Urine WBC None, Ur Squamous Epith Cells 3-5, Urine Bacteria None, Urine Opiates Screen Negative, Urine Methadone Screen Negative, Ur Barbituates Screen Negative, Ur Phencyclidine Scrn Negative, Ur Amphetamines Screen Positive H, U Benzodiazepines Scrn Negative, Urine Cocaine Screen Negative, U Marijuana (THC) Screen Positive H 08/04/23 21:15: Troponin I 0.10 H 08/04/23 23:04: Lactate 1.5 08/05/23 00:16: Troponin I 0.07 H 08/05/23 06:10: WBC 17.5 H, RBC 4.54, Hgb 14.3, Hct 45.1, MCV 99.3 H, MCH 31.6 H , MCHC 31.8, RDW 14.3, Plt Count 249, MPV 9.2, Neut % (Auto) 94.0 H, Lymph % (Auto) 2.8 L, [place] % (Auto) 2.1, Eos % (Auto) 0.1, Baso % (Auto) 1.0, Neut # (Auto) 16.5 H, Lymph # (Auto) 0.5 L, [place] # (Auto) 0.4, Eos # (Auto) 0.0, Baso # (Auto) 0.2, Sodium 137, Potassium 3.1 L, Chloride 102, Carbon Dioxide 27, Anion Gap 11.1, BUN 26 H, Glucose 192 H, Calcium 8.7, Magnesium 2.2 D, Total Bilirubin 0.3, AST 28 D, ALT 24 D, Alkaline Phosphatase 66, Total Protein 6.4, Albumin 3.3 L D, Globulin 3.1, Albumin/Globulin Ratio 1.1 I & O for Labs for Last 24 Hours: Intake & Output 08/02/23 08/03/23 08/04/23 08/05/23 23:59 23:59 23:59 23:59 Intake Total 2390 / 2390 Output Total 700 / 700 Balance 1690 / 1690 Weight 79.379 kg 79.4 kg Constitutional: Present no acute distress, average body habitus, chronically ill appearing and disheveled Head: Present atraumatic and normocephalic ENT: Present normal exam Neck: Present normal inspection Respiratory: Present rhonchi, crackles and normal respiratory effort; Absent wheezes Cardiac: Present Regular Rhythm and Tachycardia GI: Present soft and normal bowel sounds; Absent distention or tenderness Extremities: Present normal inspection and full ROM Skin: Present intact; Absent erythema Neuro: Present Grossly Intact, alert, awake, oriented x 3 and moves all extremities Assessment and Plan *Assessment and plan (1) Sepsis: Status: Acute Qualifiers: Acute respiratory failure type: with hypercapnia Sepsis acute organ dysfunction status: with acute organ dysfunction Sepsis type: sepsis due to unspecified organism Severe sepsis acute organ dysfunction type: acute respiratory failure Severe sepsis shock status: without septic shock Qualified Code(s): A41.9 - Sepsis, unspecified organism; R65.20 - Severe sepsis without septic shock; J96.02 - Acute respiratory failure with hypercapnia Category: Medical Code(s): A41.9 - Sepsis, unspecified organism (2) Acute and chronic respiratory failure: Status: Acute Qualifiers: Respiratory failure complication: hypercapnia Qualified Code(s): J96.22 - Acute and chronic respiratory failure with hypercapnia Category: Medical Code(s): J96.20 - Acute and chronic respiratory failure, unspecified whether with hypoxia or hypercapnia (3) Pneumonia: Status: Acute Qualifiers: Laterality: right Lung location: lower lobe of lung Pneumonia type: due to unspecified organism Qualified Code(s): J18.9 - Pneumonia, unspecified organism Category: Medical Code(s): J18.9 - Pneumonia, unspecified organism (4) Altered mental status: Status: Acute Qualifiers: Altered mental status type: disorientation Qualified Code(s): R41.0 - Disorientation, unspecified Category: Medical Code(s): R41.82 - Altered mental status, unspecified (5) Elevated brain natriuretic peptide (BNP) level: Status: Acute Category: Medical Code(s): R79.89 - Other specified abnormal findings of blood chemistry (6) Elevated troponin: Status: Acute Category: Medical Code(s): R79.89 - Other specified abnormal findings of blood chemistry (7) MANDIE (acute kidney injury): Status: Acute Category: Medical Code(s): N17.9 - Acute kidney failure, unspecified (8) Hypokalemia: Status: Acute Category: Medical Code(s): E87.6 - Hypokalemia Plan 63-year-old female with a PMHx of COPD on home oxygen, chronic tobacco use, fibromyalgia, peripheral neuropathy, renal insufficiency, and anxiety presenting by EMS with concern for altered mental status and difficulty breathing. on arrival patient was found to have leukocytosis, which along with her tachypnea, tachycardia, and borderline fever, concerned for sepsis. conservative sepsis work up was initiated. CT scan of the head, CTA of the chest, CT abdomen pelvis with IV contrast and EKG. Imaging reviewed. Started on IV vancomycin and Zosyn for potential aspiration pneumonia and sepsis secondary to pneumonia. Initial troponin is elevated at 0.08, however the patient does not have any significant changes on repeat EKG. Likely has cardiac insult from her respiratory failure with potentially a type II NSTEMI. All findings were widely discussed with ED for admission. Medicine decided to admit for further management. Continues to require inpatient management. Seeing improvement in oxygen requirement did p.o. ports 113. She is class IV risk necessitating inpatient care. Problems addressed as follows: -Sepsis with acute on chronic hypercapnic respiratory failure, secondary to pneumonia: AMS, improving Continue supplemental oxygen, goal saturation greater 90%. Currently on 2 L Transition to ceftriaxone and azithromycin IV for pneumonia coverage. Anticipate 5 to 7 days of antibiotics pending response White cell count improved to 17.5, down from 22 at admission. Repeat CBC, CMP, magnesium ordered for the morning DuoNebs scheduled every 6 hours Blood cultures pending Type II NSTEMI Elevated BNP suspicious for CHF -BNP elevated to 4300 on admission -Preliminary echo results appear to show preserved ejection fraction, suspect diastolic dysfunction -Continue Lasix 40 mg IV daily -Troponins trended down MANDIE versus CKD Hypokalemia - BUN 26, creatinine 1.2. Repeat CBC, CMP, magnesium ordered for the morning to monitor kidney function with diuresis -Potassium 3.1, magnesium 2.2. Replace potassium orally and IV -Caution with nephrotoxins Lovenox Protonix Soft mechanical diet Full code
[2023-08-05 08:14] LABS: Platelet Estimate Normal; RBC Morphology Normal
[2023-08-05 08:16] LABS: Creatinine Clearance Estimated 66 mL/min (50-200); Estimated Glomerular Filt Rate 50 ml/min (>60); GFR (African American) 61 ML/MIN (>60)
[2023-08-05] MEDS: VANCOMYCIN/WATER FOR INJ (PEG) 1.5 GM/300 ML PIGGYBACK IV (09:20)
[2023-08-05] MEDS: ENOXAPARIN 40MG/0.4ML SYRINGE 40 MG SQ (09:20)
[2023-08-05] MEDS: POTASSIUM CHLORIDE 20MEQ TAB 40 MEQ PO ×2 (09:20→20:21)
[2023-08-05] MEDS: POTASSIUM CHLORIDE 20 MEQ, LIDOCAINE HCL/PF 3 ML in 0.9 % SODIUM CHLORIDE 100 ML 56.5 MEQ IV (10:53)
--- NOTE | 2023-08-05 10:59 | HMH.SLDYSPHA ---
Speech & Language Evaluation Speech/Language Dysphagia Evaluation Start: 08/05/23 10:53 Freq: ONCE Status: Active Protocol: Document 08/05/23 10:53 HILDA (Rec: 08/05/23 10:59 [id number] Dysphagia Assess/Goals/Plan Assessment Date of Evaluation: 08/05/23 Evaluation Type Initial Certification Assessment/Problems aspiration per MD order. Does Patient Qualify for Service Yes Qualify/Failure Comment Based on clinical observation made during CSE, pt would benefit from diet texture analysis and tolerance follow- up. Recommendations PHYSICIAN CERTIFICATION: The specified therapy services are required, authorized, and reviewed every 30 days. Pt will be seen # times/week 1 for # weeks 4 Diet Recommendations Mechanical Soft Liquid Type Recommendations Normal/Thin SL Swallow Guidelines Alt bite w/sip thru meal, Standard Aspiration Prec.,Eat at slow rate Dysphagia Swallow Precautions/Strategies Double Swallow,Small Bites and Sips,Alternate Liquids/Solids Plan Pt/Guardian verbally ack understanding Yes of dx/prognosis/goals G -code Required No Education Instructions provided Discussed results of CSE, diet recommendations, and aspiration precautions with pt , nursing, and care management all of which expressed understanding. Pt/Caregiver able to recall information Able to recall/restate Reinforcement needed No Speech & Language HPI History Present Illness Description of Patient Problem Pt is a 63-year-old female with a PMHx of COPD on home oxygen, chronic tobacco use, fibromyalgia, peripheral neuropathy, renal insufficiency, and anxiety presenting by EMS with concern for altered mental status and difficulty breathing. patient presented on mental alter and does not contribute to history given acuity of condition. Data collected mostly by chart review, ED documentation and EMS report. Chest CTA reported the following: IMPRESSION: 1. No evidence of a pulmonary embolism. 2. Significant posterior right lower lobe consolidation consistent with pneumonia or aspiration. 3. Mild patchy density in the left lower lobe consistent with pneumonia or aspiration. 4. 1.1 cm and 0.8 cm irregular nodules in the anterior left upper lobe and 0.7 cm irregular nodule in the posterior left upper lobe could be inflammatory or neoplastic. Recommend follow-up chest CT in 3 months . 5. Mild emphysema. 3.5 cm medial left lung apex subpleural bleb extends into the left neck and is positioned between the carotid and vertebral arteries. COMMENTS: The presence of pulmonary emphysema on CT is an independent risk factor for lung cancer. In the absence of a history or active diagnosis of lung cancer, it is recommended that this patient with emphysema be evaluated for enrollment in a low dose CT lung cancer screening program. Language Primary Language Guyanese General Information General Current Food Consistancy NPO Dentition Edentulous Oxygen Status Nasal Cannula Patient Orientation Person,Place Ability to Follow Directions Good Communication Ability No Impairment Dysphagia:Food Presentation Evaluation Food Type Pureed,Mechanical Soft,Liquid, Pudding Dysphagia Evaluation Summary Pt was seen sitting upright in bed this AM for CSE. She was A&Ox3. Pt and nursing reports wet cough at baseline. Pt demonstrated no overt s/sxs of aspiration with O2 sats remaining in 90s across all trials administered. The following consistencies administered were trialed x3 to assess for fatigue and consistency: thin liquids (ice chips, spoonfuls of water, open cup/straw sips, two consecutive sips from open cup /straw), pudding, puree ( applesauce), and mechanical soft (nutrigrain bar.) Regular solids were not trialed 2' lack of dentition. EXPRESSIVE ART THERAPIST will f/ u for diet texture analysis and tolerance. Stroke Dysphagia Assessment PHYSICIAN CERTIFICATION: I certify the specified therapy services for Sabine Ly are required, authorized, and reviewed every 30 days.
[2023-08-05] MEDS: CEFTRIAXONE 1 GM 1 GM in 0.9 % SODIUM CHLORIDE 50 ML IV (13:38)
[2023-08-05] MEDS: AZITHROMYCIN 500 MG in 0.9 % SODIUM CHLORIDE 250 ML 250 MG IV (14:35)
--- NOTE | 2023-08-05 16:47 | HMH.PTEV ---
Physical Therapy Evaluation Rehab PT IP Evaluation Start: 08/05/23 16:01 Freq: ONCE Status: Active Protocol: Document 08/05/23 16:43 MYLA (Rec: 08/05/23 16:47 PHOGERDA [id number]) Subjective/History History History 63 yowf adm to [facility] with PNA, sepsis, resp fail, elevated troponin. She has PMH of COPD on home oxygen, chronic tobacco use, fibromyalgia, peripheral neuropathy, renal insufficiency, and anxiety. She reports she lives with her brother, no KOFI the home, and she is independent with all mobility when I feel like it. Subjective Subjective Pt reports no c/o at this time and agrees to mobility assessment. New diagnosis of cancer in past 12 No months? Rehab PT IP Eval Objective Appearance Patient Behavior Appropriate Patient Orientation Person,Place,Time Difficulty following instructions none Speech Pattern Clear Ambulation Patient Able to Ambulate Yes Ambulation Observation IP General Gait Pattern Observation No Deviations/Normal Ambulation Distance (feet) 30 Ambulation Assistive Device None Ambulation Ability Supervision/Stand by Balance Ability to Arise Able, uses arms to help Sitting Balance Steady, safe Standing Balance Steady, wide stance Dynamic Sitting Balance Ability Good Dynamic Standing Balance Ability Good Transfers Bed Transfer Ability Supervision/Stand by Chair Transfer Ability Supervision/Stand by Sit to Stand Bed Transfer Ability Supervision/Stand by Sit to Stand Chair Transfer Ability Supervision/Stand by ROM All Extremities PT ROM Status WFL MMT All Extremities PT MMT WFL Rehab PT IP prob,goals,plan Problems Date of Evaluation: 08/05/23 Discharge Plan PT Discharge Plan Pt is currently independent with all mobility and is appropriate to return home once medically stable for d/c. Recommend home health therapy as indicated after d/c. Eval Complexity Eval Charge Codes 61207 - High Complexity PHYSICIAN CERTIFICATION: I certify the specified therapy services for Sabine Ly are required, authorized, and reviewed every 30 days.
--- NOTE | 2023-08-05 17:11 | PC.NURSE ---
Pt is currently sitting up on the side of the bed eating his dinner. Has c/o some discomfort to his (L) side or chest. Medicated with morphine. Pt stated that it has improved over the shift and declined morphine this evening. He is on 2L O2 NC. Chest tube to (L) side at low wall continuous suction. Call light within reach. Family in room.
--- NOTE | 2023-08-05 17:17 | PC.NURSE ---
Pt is A&Ox3. Has slept most of shift with the exception of eating her meals and ambulating once this evening from the bed to the BR with PT. She remains on 2L O2 NC. She tolerated ambulation fair. Has c/o soa at times. Appetite is fair. She is voiding per keyla. No BM. Call light within reach.
[2023-08-05] MEDS: IPRATROPIUM/ALBUTEROL 3 ML NEB IH (18:22)
--- NOTE | 2023-08-05 18:25 | PC.NURSE ---
ROOM AIR SAT 86% Pt placed back on 2LNC satting 94%
[2023-08-05] MEDS: 0.9 % SODIUM CHLORIDE 1000ML 1,000 ML 50 ML IV (18:43)
[2023-08-05 19:02] LABS: VBG Base Excess -0.6 mmol/L (-2.4-2.3); VBG HCO3 24.4 mmol/L (23-30); VBG Oxygen Saturation 93.8 % (50-70); VBG PCO2 41.4 mmol/L (35-51); VBG PH 7.39 mmol/L (7.31-7.41); VBG PO2 69.8 mmol/L (28-40); VBG Total CO2 25.7 mmol/L (23-27)
[2023-08-05 19:03] LABS: Lactate Venous 2.2 mmol/L (0.4-2.0)
[2023-08-05 19:17] LABS: Ammonia 13 umol/L (9-30)
[2023-08-05] MEDS: PANTOPRAZOLE 40MG TABLET 40 MG PO (20:21)
[2023-08-05 23:04] LABS: Reflex Lactic Add Lactic Reflex
[2023-08-05] MEDS: MORPHINE 2MG/ML SYRINGE 2 MG IV (23:05)
[2023-08-05 23:34] LABS: Lactic Acid Follow Up (RFLX 1) 1.8 mmol/L (0.7-2.1)
[2023-08-06] VITALS (11 sets, daily range): BP systolic 103–120; BP diastolic 52–69; PULSE 75–96; RESP 18–24; TEMP 36.4–36.9; O2SAT 90–99; BMI 28.1
[2023-08-06] MEDS: IPRATROPIUM/ALBUTEROL 3 ML NEB IH ×5 (00:15→23:51)
--- NOTE | 2023-08-06 05:35 | PC.NURSE ---
pt. has rested through the night, A&OX4, O2 sats >95% on 2L NC, pt has c/o SOA once with O2 sat 96%, breathing treatment was given and pt. reported some relief, no other complaints voiced, call button is in reach
[2023-08-06 07:29] LABS: Basophils # 0.1 K/mm3 (0-0.2); Basophils % 0.4 % (0.1-2.0); Eosinophils # 0.1 K/mm3 (0.0-0.4); Eosinophils % 0.4 % (0.1-12.0); Hematocrit 39.6 % (37.0-47.0); Hemoglobin 12.4 g/dL (12.2-16.2); Lymphocytes # 0.7 K/mm3 (0.7-4.5); Mean Corpuscular HGB Conc 31.3 g/dL (31.8-35.4); Mean Corpuscular Hemoglobin 31.5 pg (27.0-31.2); Mean Corpuscular Volume 100.8 fl (81-99); Mean Platelet Volume 9.7 fl (7.4-10.4); Monocytes # 0.3 K/mm3 (0.1-1.0); Monocytes % 2.3 % (1.7-9.3); Neutrophils # 12.6 K/mm3 (1.8-7.8); Neutrophils % 91.9 % (37.0-80.0); Platelet Count 210 K/mm3 (142-424); Red Blood Count 3.92 M/mm3 (4.20-5.40); Red Cell Distribution Width 14.1 % (11.5-17.5); White Blood Count 13.7 K/mm3 (4.8-10.8)
[2023-08-06 07:36] LABS: MANUAL DIFFERENTIAL MANUAL DIFFERENTIAL (MANUAL DIFF)
[2023-08-06 07:41] LABS: Alanine Aminotransferase 41 U/L (12-78); Albumin Level 2.8 g/dl (3.5-5.0); Albumin/Globulin Ratio 0.9 (1.1-1.8); Alkaline Phosphatase 82 U/L (38-126); Anion Gap 5.1 mEq/L (5-15); Aspartate Amino Transferase 43 U/L (14-36); Bilirubin,Total 0.2 mg/dl (0.2-1.3); Blood Urea Nitrogen 26 mg/dl (7-17); Calcium 8.5 mg/dl (8.4-10.2); Carbon Dioxide 27 mmol/L (22.0-30.0); Chloride 110 mmol/L (98-107); Creatinine Clearance Estimated 72 mL/min (50-200); Estimated Glomerular Filt Rate 56 ml/min (>60); GFR (African American) 68 ML/MIN (>60); Glucose 96 mg/dl (74-100); Magnesium 2.2 mg/dl (1.6-2.3); Potassium 4.1 mmoL/L (3.5-5.1); Sodium 138 mmol/L (136-145); Total Protein,Serum 5.8 g/dl (6.3-8.2)
[2023-08-06] MEDS: FUROSEMIDE 40MG/4ML VIAL 40 MG IV (08:45)
[2023-08-06] MEDS: POTASSIUM CHLORIDE 20MEQ TAB 40 MEQ PO ×2 (08:45→20:48)
[2023-08-06] MEDS: ENOXAPARIN 40MG/0.4ML SYRINGE 40 MG SQ (08:45)
[2023-08-06] MEDS: ACETAMINOPHEN 325MG TAB 650 MG PO (08:54)
[2023-08-06 09:52] LABS: Lymphocytes % 7 % (10-50); Monocytes % 1 % (2-9); Neutrophils % 92 % (42-76); Platelet Estimate Normal; Total Cells Counted 100
[2023-08-06 09:53] LABS: Macrocytosis 1+
[2023-08-06] MEDS: CEFTRIAXONE 1 GM 1 GM in 0.9 % SODIUM CHLORIDE 50 ML IV (13:40)
--- NOTE | 2023-08-06 14:03 | EXP.PN ---
Subjective *Date: 08/06/23 *Time: 14:03 Interval history: patient was seen and evaluated at the bedside. does not feel good today, No reported acute events overnight, denies chest pain, shortness of breath, nausea, vomiting, abdominal pain. Exam Data for Last 24 hours Vital signs and Labs for Last 24 Hours: Temp Pulse Resp BP Pulse Ox O2 Del Method O2 Flow Rate 97.6 F 82 18 103/52 L 95 Nasal Cannula 2 08/06/23 11:50 08/06/23 11:50 08/06/23 11:50 08/06/23 11:50 08/06/23 11:50 08/06/23 11:50 08/06/23 11:50 Laboratory Results - last 24 hr 08/05/23 18:43: VBG pH 7.39, VBG pCO2 41.4, VBG pO2 69.8 H, VBG HCO3 24.4, VBG Total CO2 25.7, VBG O2 Saturation 93.8 H, VBG Base Excess -0.6, VBG Lactic Acid 2.2 H 08/05/23 18:59: Ammonia 13 08/05/23 23:15: Lactate 1.8 08/06/23 06:40: WBC 13.7 H, RBC 3.92 L, Hgb 12.4, Hct 39.6, MCV 100.8 H, MCH 31.5 H, MCHC 31.3 L, RDW 14.1, Plt Count 210, MPV 9.7, Neut % (Auto) 91.9 H, Lymph % (Auto) 5.0 L, [place] % (Auto) 2.3, Eos % (Auto) 0.4, Baso % (Auto) 0.4, Neut # (Auto) 12.6 H, Lymph # (Auto) 0.7, [place] # (Auto) 0.3, Eos # (Auto) 0.1, Baso # (Auto) 0.1, Total Counted 100, Neutrophils % (Manual) 92 H, Lymphocytes % (Manual) 7 L, Monocytes % (Manual) 1 L, Platelet Estimate Normal, Macrocytosis 1+, Sodium 138, Potassium 4.1 D, Chloride 110 H, Carbon Dioxide 27, Anion Gap 5.1, BUN 26 H, Creatinine 1.00, Estimated Creat Clear 72, Estimated GFR 56 L, Est GFR ( Amer) 68, Glucose 96, Calcium 8.5, Magnesium 2.2, Total Bilirubin 0.2, AST 43 H D, ALT 41 D, Alkaline Phosphatase 82, Total Protein 5.8 L, Albumin 2.8 L D, Globulin 3.0, Albumin/Globulin Ratio 0.9 L I & O for Last 24 hours: Intake & Output 08/03/23 08/04/23 08/05/23 08/06/23 23:59 23:59 23:59 23:59 Intake Total 3110 / 3110 1823 / 1823 Output Total 1800 / 1801 1251 / 1251 Balance 1310 / 1309 572 / 572 Weight 79.379 kg 79.4 kg 79.4 kg Constitutional Constitutional: no acute distress *Routine HEENT Exam Head: Present normocephalic Eye: Present EOMI and PERRL ENT: Present mucous membranes moist *Routine Neck Exam Neck: Present supple; Absent lymphadenopathy *Routine Respiratory Exam Respiratory: Present CTA bilaterally *Routine Cardiovascular Exam Cardiovascular: Present RRR *Routine Abdominal Exam Abdominal: Present soft and normoactive bowel sounds; Absent tenderness *Routine Extremities Exam Extremities: Absent cyanosis, clubbing or edema *Routine Skin Exam Skin: Present warm; Absent rash *Routine Neurological Exam Neurological: Present alert and oriented X3 Assessment and Plan *Assessment and plan (1) Sepsis: Status: Acute Qualifiers: Acute respiratory failure type: with hypercapnia Sepsis acute organ dysfunction status: with acute organ dysfunction Sepsis type: sepsis due to unspecified organism Severe sepsis acute organ dysfunction type: acute respiratory failure Severe sepsis shock status: without septic shock Qualified Code(s): A41.9 - Sepsis, unspecified organism; R65.20 - Severe sepsis without septic shock; J96.02 - Acute respiratory failure with hypercapnia Category: Medical Code(s): A41.9 - Sepsis, unspecified organism (2) Acute and chronic respiratory failure: Status: Acute Qualifiers: Respiratory failure complication: hypercapnia Qualified Code(s): J96.22 - Acute and chronic respiratory failure with hypercapnia Category: Medical Code(s): J96.20 - Acute and chronic respiratory failure, unspecified whether with hypoxia or hypercapnia (3) Pneumonia: Status: Acute Qualifiers: Laterality: right Lung location: lower lobe of lung Pneumonia type: due to unspecified organism Qualified Code(s): J18.9 - Pneumonia, unspecified organism Category: Medical Code(s): J18.9 - Pneumonia, unspecified organism (4) Altered mental status: Status: Acute Qualifiers: Altered mental status type: disorientation Qualified Code(s): R41.0 - Disorientation, unspecified Category: Medical Code(s): R41.82 - Altered mental status, unspecified (5) Elevated brain natriuretic peptide (BNP) level: Status: Acute Category: Medical Code(s): R79.89 - Other specified abnormal findings of blood chemistry (6) Elevated troponin: Status: Acute Category: Medical Code(s): R79.89 - Other specified abnormal findings of blood chemistry (7) MANDIE (acute kidney injury): Status: Acute Category: Medical Code(s): N17.9 - Acute kidney failure, unspecified (8) Hypokalemia: Status: Acute Category: Medical Code(s): E87.6 - Hypokalemia Plan 63-year-old female with a PMHx of COPD on home oxygen, chronic tobacco use, fibromyalgia, peripheral neuropathy, renal insufficiency, and anxiety presenting by EMS with concern for altered mental status and difficulty breathing. -Sepsis with acute on chronic hypercapnic respiratory failure, secondary to pneumonia: - improving AMS, improved Continue supplemental oxygen, goal saturation greater 90%. Currently on 2 L Transition to ceftriaxone and azithromycin IV for pneumonia coverage. Anticipate 5 to 7 days of antibiotics pending response White cell count improved to 17.5, down from 22 at admission. DuoNebs scheduled every 6 hours Blood cultures pending continue current treatment Type II NSTEMI Elevated BNP suspicious for CHF -BNP elevated to 4300 on admission -Preliminary echo results appear to show preserved ejection fraction, suspect diastolic dysfunction -Continue Lasix 40 mg IV daily -Troponins trended down - monitor on telemetry MANDIE versus CKD - improving Hypokalemia monitor BMP -Caution with nephrotoxins Lovenox Protonix Soft mechanical diet Full code likely DC 1-2 days
[2023-08-06] MEDS: AZITHROMYCIN 500 MG in 0.9 % SODIUM CHLORIDE 250 ML 250 MG IV (14:24)
--- NOTE | 2023-08-06 16:35 | PC.NURSE ---
Patient asleep for most of shift. Patient able to be aroused and alert and oriented times 4. VS stable, lung sounds fine crackles and productive cough noted. Patient remained on 2LNC. No complaints noted.
[2023-08-06] MEDS: 0.9 % SODIUM CHLORIDE 1000ML 1,000 ML 50 ML IV (18:00)
[2023-08-06] MEDS: MORPHINE 2MG/ML SYRINGE 2 MG IV ×2 (18:05→20:48)
[2023-08-06] MEDS: PANTOPRAZOLE 40MG TABLET 40 MG PO (20:48)
[2023-08-07] VITALS: BP 129/70; PULSE 80; RESP 20; TEMP 36.7; O2SAT 98
[2023-08-07 04:00] VITALS: BP 132/72; PULSE 93; RESP 24; TEMP 36.6; O2SAT 98; BMI 28.1
--- NOTE | 2023-08-07 05:32 | PC.NURSE ---
pt rested well this shift, A&OX4, reports soa at times, remains on 2L NC, O2 sats >95%, pt. reports pain around hernia and on right side, medicated prn per mar with favorable results, call button is in reach
[2023-08-07] MEDS: POLYETHYLENE GLYCOL 3350 17 GM PACKET PO (05:39)
[2023-08-07] MEDS: IPRATROPIUM/ALBUTEROL 3 ML NEB IH ×2 (06:06→11:18)
[2023-08-07 06:07] VITALS: PULSE 83; PULSE 91; O2SAT 96
[2023-08-07 07:49] VITALS: BP 134/73; PULSE 83; RESP 18; TEMP 36.8; O2SAT 95
[2023-08-07 07:52] LABS: Alanine Aminotransferase 39 U/L (12-78); Albumin Level 2.8 g/dl (3.5-5.0); Albumin/Globulin Ratio 0.9 (1.1-1.8); Alkaline Phosphatase 96 U/L (38-126); Anion Gap 4.4 mEq/L (5-15); Aspartate Amino Transferase 32 U/L (14-36); Bilirubin,Total 0.2 mg/dl (0.2-1.3); Blood Urea Nitrogen 17 mg/dl (7-17); Calcium 8.8 mg/dl (8.4-10.2); Carbon Dioxide 30 mmol/L (22.0-30.0); Chloride 108 mmol/L (98-107); Creatinine Clearance Estimated 72 mL/min (50-200); Estimated Glomerular Filt Rate 72 ml/min (>60); GFR (African American) 88 ML/MIN (>60); Globulin 3.2 g/dL (1.3-3.2); Glucose 105 mg/dl (74-100); Potassium 4.4 mmoL/L (3.5-5.1); Sodium 138 mmol/L (136-145)
[2023-08-07] MEDS: FUROSEMIDE 40MG/4ML VIAL 40 MG IV (08:35)
[2023-08-07] MEDS: POTASSIUM CHLORIDE 20MEQ TAB 40 MEQ PO (08:35)
[2023-08-07] MEDS: ENOXAPARIN 40MG/0.4ML SYRINGE 40 MG SQ (08:36)
[2023-08-07] MEDS: MINERAL OIL ENEMA 133ML 133 ML RC (10:06)
--- NOTE | 2023-08-07 10:07 | EXP.DC.SUM ---
General Admission date:: 08/04/23 Discharge date: 08/07/23 HPI HPI HPI: This is a 63-year-old female with a PMHx of COPD on home oxygen, chronic tobacco use, fibromyalgia, peripheral neuropathy, renal insufficiency, and anxiety presenting by EMS with concern for altered mental status and difficulty breathing. patient presented on mental alter and does not contribute to history given acuity of condition. Data collected mostly by chart review, ED documentation and EMS report. According to EMS, the family had gone to check on the patient today earlier this morning and found her having some difficulty breathing, so they placed her on her home oxygen. They left and later found her with profoundly altered mental status and worsened difficulty breathing. Given this, they called EMS, who noted that upon their arrival, the patient was hooked up to an oxygen tank that was completely empty. They noted her oxygen saturation was 86% on room air. They advised they gave her albuterol and placed on supplemental oxygen and brought her in for evaluation. Patient is somnolent but will wake up to voice and tell you what her name is. She follows commands. Admitted for management and treatment. Hospital Course Hospital Course Hospital Course: 63-year-old female with a PMHx of COPD on home oxygen, chronic tobacco use, fibromyalgia, peripheral neuropathy, renal insufficiency, and anxiety presenting by EMS with concern for altered mental status and difficulty breathing which has since improved -Sepsis with acute on chronic hypercapnic respiratory failure, secondary to pneumonia: - resolved AMS, improved DC on oral levofloxacin Patient insturcted if she feels bad at home, she should come back to the emergency department follow up with primary care provided as well as cardiology in 1 week Type II NSTEMI - no complains of chest pain, ACS ruled out Elevated BNP suspicious for CHF -BNP elevated to 4300 on admission -Preliminary echo results appear to show preserved ejection fraction, suspect diastolic dysfunction, follow up with cardiology in 1 week, patient given cardiology referral in 1 week, patient agrees with following up with appointment DC on oral daily lasix 20mg, prescription sent MANDIE versus CKD - improved Exam Data for Last 24 hours Vital signs and Labs for Last 24 Hours: Temp Pulse Resp BP Pulse Ox O2 Del Method O2 Flow Rate 98.2 F 83 18 134/73 95 Nasal Cannula 2 08/07/23 07:49 08/07/23 07:49 08/07/23 07:49 08/07/23 07:49 08/07/23 07:49 08/07/23 07:49 08/07/23 07:49 Laboratory Results - last 24 hr 08/07/23 06:50: Sodium 138, Potassium 4.4, Chloride 108 H, Carbon Dioxide 30, Anion Gap 4.4 L, BUN 17 D, Creatinine 0.80, Estimated Creat Clear 72, Estimated GFR 72, Est GFR ( Amer) 88 D, Glucose 105 H, Calcium 8.8, Total Bilirubin 0.2, AST 32 D, ALT 39, Alkaline Phosphatase 96, Total Protein 6.0 L, Albumin 2.8 L, Globulin 3.2, Albumin/Globulin Ratio 0.9 L I & O for Last 24 hours: Intake & Output 08/04/23 08/05/23 08/06/23 08/07/23 23:59 23:59 23:59 23:59 Intake Total 3110 / 3110 2665 / 2665 1263 / 1263 Output Total 1800 / 1801 1751 / 1751 500 / 500 Balance 1310 / 1309 914 / 914 763 / 763 Weight 79.379 kg 79.4 kg 79.4 kg 79.4 kg Constitutional Constitutional: no acute distress *Routine HEENT Exam Head: Present normocephalic Eye: Present EOMI and PERRL ENT: Present mucous membranes moist *Routine Neck Exam Neck: Present supple; Absent lymphadenopathy *Routine Respiratory Exam Respiratory: Present CTA bilaterally *Routine Cardiovascular Exam Cardiovascular: Present RRR *Routine Abdominal Exam Abdominal: Present soft and normoactive bowel sounds; Absent tenderness *Routine Extremities Exam Extremities: Absent cyanosis, clubbing or edema *Routine Skin Exam Skin: Present warm; Absent rash *Routine Neurological Exam Neurological: Present alert and oriented X3 Results Data Completed and Pending Labs on day of discharge: Labs from last 24 hours 08/07/23 06:50 Sodium 138 Potassium 4.4 Chloride 108 H Carbon Dioxide 30 Anion Gap 4.4 L BUN 17 D Creatinine 0.80 Estimated Creat Clear 72 Estimated GFR 72 Est GFR ( Amer) 88 D Glucose 105 H Calcium 8.8 Total Bilirubin 0.2 AST 32 D ALT 39 Alkaline Phosphatase 96 Total Protein 6.0 L Albumin 2.8 L Globulin 3.2 Albumin/Globulin Ratio 0.9 L DS: Diagnosis Discharge Diagnosis (1) Sepsis: Status: Acute Code(s): A41.9 - Sepsis, unspecified organism Qualifiers: Acute respiratory failure type: with hypercapnia Sepsis acute organ dysfunction status: with acute organ dysfunction Sepsis type: sepsis due to unspecified organism Severe sepsis acute organ dysfunction type: acute respiratory failure Severe sepsis shock status: without septic shock Qualified Code(s): A41.9 - Sepsis, unspecified organism; R65.20 - Severe sepsis without septic shock; J96.02 - Acute respiratory failure with hypercapnia (2) Acute and chronic respiratory failure: Status: Acute Code(s): J96.20 - Acute and chronic respiratory failure, unspecified whether with hypoxia or hypercapnia Qualifiers: Respiratory failure complication: hypercapnia Qualified Code(s): J96.22 - Acute and chronic respiratory failure with hypercapnia (3) Pneumonia: Status: Acute Code(s): J18.9 - Pneumonia, unspecified organism Qualifiers: Laterality: right Lung location: lower lobe of lung Pneumonia type: due to unspecified organism Qualified Code(s): J18.9 - Pneumonia, unspecified organism (4) Altered mental status: Status: Acute Code(s): R41.82 - Altered mental status, unspecified Qualifiers: Altered mental status type: disorientation Qualified Code(s): R41.0 - Disorientation, unspecified (5) Elevated brain natriuretic peptide (BNP) level: Status: Acute Code(s): R79.89 - Other specified abnormal findings of blood chemistry (6) Elevated troponin: Status: Acute Code(s): R79.89 - Other specified abnormal findings of blood chemistry (7) MANDIE (acute kidney injury): Status: Acute Code(s): N17.9 - Acute kidney failure, unspecified (8) Hypokalemia: Status: Acute Code(s): E87.6 - Hypokalemia Meds Home Medications and Allergies Home Medications Medication Instructions Recorded Confirmed Type albuterol sulfate 90 mcg/actuation 2 puff inhalation Q4HP PRN 08/05/23 08/05/23 History aerosol inhaler (Ventolin HFA) Shortness Of Breath brimonidine 0.2 % eye drops 1 drp Eye-Both BID 08/05/23 08/05/23 History budesonide-formoterol HFA 160 2 puff inhalation BID Breathing 08/05/23 08/05/23 History mcg-4.5 mcg/actuation aerosol Problems inhaler (Symbicort) cetirizine 10 mg tablet 10 mg PO DAILYP PRN Allergy 08/05/23 08/05/23 History Symptoms cholecalciferol (vitamin D3) 50 50 mcg PO DAILY Supplement 08/05/23 08/05/23 History mcg (2,000 unit) tablet diltiazem HCl 120 mg 120 mg PO DAILY Heart Rate 08/05/23 08/05/23 History capsule,extended release 12 hr duloxetine 60 mg capsule,delayed 60 mg PO DAILY 08/05/23 08/05/23 History release hydrochlorothiazide 25 mg tablet 25 mg PO DAILY Fluid 08/05/23 08/05/23 History latanoprost 0.005 % eye drops 1 drp Eye-Both HS 08/05/23 08/05/23 History levothyroxine 75 mcg tablet 75 mcg PO DAILY Thyroid 08/05/23 08/05/23 History pantoprazole 40 mg tablet,delayed 40 mg PO DAILY Acid Reflux 08/05/23 08/05/23 History release tiotropium bromide 2.5 2 puff inhalation DAILY Breathing 08/05/23 08/05/23 History mcg/actuation mist for inhalation Problems (Spiriva Respimat) furosemide 20 mg tablet (Lasix) 20 mg PO DAILY 30 days #30 tabs 08/07/23 Rx levofloxacin 750 mg tablet 750 mg PO Q24H 5 days #5 tabs 08/07/23 Rx nicotine 21 mg/24 hr daily 21 mg transdermal DAILYP PRN 08/07/23 Rx transdermal patch Nicotine Cravings 30 days #30 ea New Prescriptions to Start Prescriptions: furosemide [Lasix] Sam,Irfan levofloxacin Sam,Irfan nicotine Sam,Irfan Allergies Allergy/AdvReac Type Severity Reaction Status Date / Time No Known Allergies Allergy Verified 02/27/19 16:10 Discharge Plan Disposition Patient Disposition: Home, Self-Care Condition: Good Follow up Plan Follow up with: Jc Choudhury MD [Staff Physician] - 1 week ProviderMora MD [Primary Care Provider] - 1 week Prescriptions/Medication Reconciliation: New nicotine 21 mg/24 hr Patch 24 Hour 21 mg transdermal DAILYP PRN (Reason: Nicotine Cravings) 30 Days Qty: 30 0RF furosemide [Lasix] 20 mg tablet 20 mg PO DAILY 30 Days Qty: 30 0RF levofloxacin 750 mg tablet 750 mg PO Q24H 5 Days Qty: 5 0RF Continued latanoprost 0.005 % drops 1 drp Eye-Both HS Patient Comments: INSTILL 1 DROP TO BOTH EYES EVERY EVENING cetirizine 10 mg tablet 10 mg PO DAILYP PRN (Reason: Allergy Symptoms) Patient Comments: TAKE 1 TABLET BY MOUTH EVERY DAY NEEDED levothyroxine 75 mcg tablet 75 mcg PO DAILY Patient Comments: TAKE 1 TABLET BY MOUTH DAILY diltiazem HCl 120 mg capsule,extended release 12 hr 120 mg PO DAILY Patient Comments: TAKE 1 CAPSULE BY MOUTH DAILY pantoprazole 40 mg tablet,delayed release (DR/EC) 40 mg PO DAILY Patient Comments: TAKE 1 TABLET BY MOUTH DAILY brimonidine 0.2 % drops 1 drp Eye-Both BID Patient Comments: APPLY 1 DROP INTO BOTH EYES TWICE DAILY hydrochlorothiazide 25 mg tablet 25 mg PO DAILY Patient Comments: TAKE 1 TABLET BY MOUTH DAILY albuterol sulfate [Ventolin HFA] 90 mcg/actuation HFA aerosol inhaler 2 puff INHALATION Q4HP PRN (Reason: Shortness Of Breath) Patient Comments: INHALE 2 PUFFS BY MOUTH EVERY 4 TO 6 HOURS NEEDED duloxetine 60 mg capsule,delayed release(DR/EC) 60 mg PO DAILY Patient Comments: TAKE 1 CAPSULE BY MOUTH DAILY budesonide-formoterol [Symbicort] 160-4.5 mcg/actuation HFA aerosol inhaler 2 puff INHALATION BID Patient Comments: INHALE 2 PUFFS BY MOUTH EVERY 12 HOURS. USE WITH SPACER cholecalciferol (vitamin D3) 50 mcg (2,000 unit) tablet 50 mcg PO DAILY Patient Comments: TAKE 1 TABLET BY MOUTH DAILY Spiriva Respimat 2.5 mcg/actuation mist 2 puff INHALATION DAILY Patient Comments: INHALE 2 PUFFS BY MOUTH DAILY Problem Reconciliation Problems Reviewed?: Yes Patient Discharge Instructions ACTIVITY: Ambulate as tolerated DIET: continue same diet Patient Instructions: DI for Pneumonia -- Adult, DI for Sepsis -- Adult Providers Primary Care Provider: Provider,Referral Admit Provider: Tristen Rosales Attending Provider: Tristen Rosales
[2023-08-07] MEDS: levoFLOXacin 750 MG TABLET PO (10:19)
[2023-08-07 11:19] VITALS: PULSE 79; PULSE 83; O2SAT 99
[2023-08-07 12:00] VITALS: BP 131/74; PULSE 82; RESP 18; TEMP 36.7; O2SAT 95
--- NOTE | 2023-08-08 16:02 | CARE MANAGER ---
Attempted to contact patient related to hospital discharge. No working number on file. AARON Toussaint
== END 2023-08-07 13:36 | disposition home or self-care (01) | DRG 871 ==
LOC: ER 19:01 → 2ND 21:02
PROVIDERS: Nurse Practitioner Family; Admitting Provider Internal Medicine Adolescent Medicine; Emergency Provider Emergency Medicine; Visit Provider Internal Medicine Adolescent Medicine
DX: J96.22 Acute and chronic respiratory failure with hypercapnia; J18.9 Pneumonia, unspecified organism; A41.9 Sepsis, unspecified organism; N17.9 Acute kidney failure, unspecified; R65.20 Severe sepsis without septic shock; Z99.81 Dependence on supplemental oxygen; I21.A1 Myocardial infarction type 2; E87.6 Hypokalemia; Z79.899 Other long term (current) drug therapy; M79.7 Fibromyalgia; G62.9 Polyneuropathy, unspecified; F41.9 Anxiety disorder, unspecified; F17.210 Nicotine dependence, cigarettes, uncomplicated
CPT/HCPCS: 36415; 70450; 71275; 74177; 80053; 80307; 81001; 82140; 82803; 83605; 83735; 83880; 84100; 84145; 84436; 84443; 84484; 85007; 85025; 85610; 85730; 87040; 87070; 87205; 87636; 92610; 93005; 93306; 94640; 94761; 97163; 99291; G0378; J0131; J0456; J0696; J2543; J3475; Q9967

== ENCOUNTER 2023-12-15 08:29 | Emergency (ER) | payer OTHER, SELFPAY ==
[2023-12-15 08:30] VITALS: BP 142/96; PULSE 81; RESP 20; TEMP 36.7; O2SAT 94; BMI 28.5
--- NOTE | 2023-12-15 08:35 | ECG_ITS ---
APPROVED REPORT Exam: Resting ECG HR:81 bpm ECG Measurements Heart Rate 81 AXES ME 170 P 82 QRSd 101 QRS 94 QT 433 T 90 QTc 471 Conclusion SINUS RHYTHM BORDERLINE RIGHT AXIS DEVIATION [QRS AXIS > 90] PROLONGED QT INTERVAL Electronically signed by : VICK LINARES, 12/15/2023 15:08:41
--- NOTE | 2023-12-15 08:46 | XR_ITS ---
FINAL REPORT CLINICAL HISTORY: soa, hx lung cancer COMPARISON: None FINDINGS: The heart size is normal. The mediastinum is normal. There is no focal infiltrate or edema. Mild chronic changes are present at the lung bases. There are no pleural effusions. There is no pneumothorax. There is no osseous abnormality. IMPRESSION: No acute cardiopulmonary process Reviewed, Interpreted and Dictated by Jorden Betancourt MD Transcribed by Radha Hawk Authenticated and [facility]
--- NOTE | 2023-12-15 08:46 | CT_ITS ---
FINAL REPORT TECHNIQUE: After the administration of intravenous contrast, axial images were obtained through the abdomen and pelvis by computed tomography. The study was performed with techniques to keep radiation dose as low as reasonably achievable, (ALARA). Individual dose reduction techniques using automated exposure control or adjustment of mA and/or kV according to the patient's size were employed. CLINICAL HISTORY: ventral hernia, distended COMPARISON: 02/20/2018 FINDINGS: Abdomen: There is a new focus of abnormal opacity in the posterior right lower lobe measuring 2.6 cm which may be inflammatory. The liver parenchyma is homogeneous. The gallbladder is contracted. The spleen, pancreas, adrenals and kidneys appear unremarkable. The aorta is normal in caliber. There is no free fluid or adenopathy. There is a midline anterior abdominal wall defect measuring 5 cm. There is herniation of the transverse colon through the defect. There is a large amount of stool in the colon without evidence of obstruction. Pelvis: The appendix is not identified. The urinary bladder is unremarkable. The uterus is present. There is no free fluid or adenopathy. IMPRESSION: New density at the right lung base, inflammatory versus neoplastic. Consider PET/CT. Large ventral hernia containing stool-filled transverse colon. Reviewed, Interpreted and Dictated by Jorden Betancourt MD Transcribed by Keyonna Devine Authenticated and [facility]
--- NOTE | 2023-12-15 08:49 | PC.NURSE ---
Pt line wouldnt draw, pt straight stuck and blood sent.
[2023-12-15 08:58] LABS: Basophils # 0.1 K/mm3 (0-0.2); Basophils % 0.5 % (0.1-2.0); Eosinophils # 0.2 K/mm3 (0.0-0.4); Eosinophils % 2.3 % (0.1-12.0); Hematocrit 42.3 % (37.0-47.0); Hemoglobin 13.6 g/dL (12.2-16.2); Lymphocytes # 0.9 K/mm3 (0.7-4.5); Lymphocytes % 9.5 % (10-50); Mean Corpuscular HGB Conc 32.2 g/dL (31.8-35.4); Mean Corpuscular Hemoglobin 31.5 pg (27.0-31.2); Mean Corpuscular Volume 97.8 fl (81-99); Mean Platelet Volume 8.8 fl (7.4-10.4); Monocytes # 0.6 K/mm3 (0.1-1.0); Monocytes % 6.5 % (1.7-9.3); Neutrophils # 7.4 K/mm3 (1.8-7.8); Neutrophils % 81.1 % (37.0-80.0); Platelet Count 287 K/mm3 (142-424); Red Blood Count 4.32 M/mm3 (4.20-5.40); Red Cell Distribution Width 14.1 % (11.5-17.5); White Blood Count 9.1 K/mm3 (4.8-10.8)
[2023-12-15 09:00] VITALS: BP 141/85; PULSE 69; RESP 19; O2SAT 90
[2023-12-15 09:01] LABS: Albumin Level 3.9 g/dl (3.5-5.0); Chloride 112 mmol/L (98-107); Potassium 3.3 mmoL/L (3.5-5.1); Sodium 144 mmol/L (136-145)
--- NOTE | 2023-12-15 09:02 | PC.NURSE ---
respiratory aware of vbg order
[2023-12-15 09:04] LABS: Alanine Aminotransferase 27 U/L (12-78); Albumin/Globulin Ratio 1.2 (1.1-1.8); Alkaline Phosphatase 93 U/L (38-126); Anion Gap 6.3 mEq/L (5-15); Aspartate Amino Transferase 31 U/L (14-36); Bilirubin,Total 0.4 mg/dl (0.2-1.3); Blood Urea Nitrogen 35 mg/dl (7-17); Carbon Dioxide 29 mmol/L (22.0-30.0); Creatinine Clearance Estimated 49 mL/min (50-200); Estimated Glomerular Filt Rate 41 ml/min (>60); GFR (African American) 50 ML/MIN (>60); Globulin 3.2 g/dL (1.3-3.2); Lipase 53 U/L (23-300); Total Protein,Serum 7.1 g/dl (6.3-8.2)
[2023-12-15 09:05] LABS: Glucose 120 mg/dl (74-100)
[2023-12-15 09:06] LABS: Lactate Venous 1.3 mmol/L (0.4-2.0); VBG Base Excess 0.5 mmol/L (-2.4-2.3); VBG HCO3 25.2 mmol/L (23-30); VBG Oxygen Saturation 97.8 % (50-70); VBG PCO2 40.9 mmol/L (35-51); VBG PH 7.41 mmol/L (7.31-7.41); VBG PO2 104.9 mmol/L (28-40); VBG Total CO2 26.4 mmol/L (23-27)
--- NOTE | 2023-12-15 09:06 | PC.NURSE ---
lactic sent to lab
[2023-12-15 09:14] LABS: NT Pro Brain Natriuretic Pep. 92.3 pg/mL (0-125)
--- NOTE | 2023-12-15 09:18 | ED_ITS ---
Discharge Plan Disposition Patient Disposition: Home, Self-Care Chief Complaint: Shortness of Breath/Dyspnea Prescriptions Prescriptions: No Action latanoprost 0.005 % drops 1 drp Eye-Both HS Patient Comments: INSTILL 1 DROP TO BOTH EYES EVERY EVENING cetirizine 10 mg tablet 10 mg PO DAILYP PRN (Reason: Allergy Symptoms) Patient Comments: TAKE 1 TABLET BY MOUTH EVERY DAY NEEDED levothyroxine 75 mcg tablet 75 mcg PO DAILY Patient Comments: TAKE 1 TABLET BY MOUTH DAILY diltiazem HCl 120 mg capsule,extended release 12 hr 120 mg PO DAILY Patient Comments: TAKE 1 CAPSULE BY MOUTH DAILY pantoprazole 40 mg tablet,delayed release (DR/EC) 40 mg PO DAILY Patient Comments: TAKE 1 TABLET BY MOUTH DAILY brimonidine 0.2 % drops 1 drp Eye-Both BID Patient Comments: APPLY 1 DROP INTO BOTH EYES TWICE DAILY hydrochlorothiazide 25 mg tablet 25 mg PO DAILY Patient Comments: TAKE 1 TABLET BY MOUTH DAILY albuterol sulfate [Ventolin HFA] 90 mcg/actuation HFA aerosol inhaler 2 puff INHALATION Q4HP PRN (Reason: Shortness Of Breath) Patient Comments: INHALE 2 PUFFS BY MOUTH EVERY 4 TO 6 HOURS NEEDED duloxetine 60 mg capsule,delayed release(DR/EC) 60 mg PO DAILY Patient Comments: TAKE 1 CAPSULE BY MOUTH DAILY budesonide-formoterol [Symbicort] 160-4.5 mcg/actuation HFA aerosol inhaler 2 puff INHALATION BID Patient Comments: INHALE 2 PUFFS BY MOUTH EVERY 12 HOURS. USE WITH SPACER cholecalciferol (vitamin D3) 50 mcg (2,000 unit) tablet 50 mcg PO DAILY Patient Comments: TAKE 1 TABLET BY MOUTH DAILY Spiriva Respimat 2.5 mcg/actuation mist 2 puff INHALATION DAILY Patient Comments: INHALE 2 PUFFS BY MOUTH DAILY levofloxacin 750 mg tablet 750 mg PO Q24H 5 Days Qty: 5 0RF furosemide [Lasix] 20 mg tablet 20 mg PO DAILY Qty: 30 0RF nicotine 21 mg/24 hr patch 24 hour 1 patch transdermal Q24H Qty: 28 0RF Referrals Follow up/Referrals: Provider,Referral, MD [Referring] - See instructions Activity Restrictions/Add. Instructions Additional Instructions/Restrictions: Follow-up with your family doctor regarding this visit to the emergency department to establish care and ensure improvement. Talk to them about scheduling follow-up imaging to look at your right lung from where you previously had pneumonia to differentiate between scarring versus other process. Clinical Impressions Clinical Impression: Shortness of breath Print Language Print Language: Citizen Of [place] Discharge ED Provider: Melvin Escalante General Chief Complaint: Shortness of Breath/Dyspnea Stated Complaint: SOA Time Seen by Provider: 12/15/23 08:33 Mode of Arrival: EMS Source of Information: Patient Limitations: No Limitations Description of Symptoms (Recalled from ER Triage Doc. by RN): Patient reports a history of lung cancer. States that she was getting ready to go to an appointment related to her hernia when she became anxious and became short of breath. Complaint that she is backed up. History of Present Illness HPI narrative: Please note that above description of symptoms, in this electronic medical record under categorization of recalled from ER triage doctor by RN are reflective of an initial nursing assessment, however, is not reflective of my full history and physical exam that was personally taken and clarified. Consequentially, this preceding description of symptoms, which may include the patient's categorized chief complaint in the EMR, do not reflect my personal clinical impression, and the ultimate description of history of present illness and patient stated complaints should be deferred to this section of the note. Unless stated otherwise or congruent with this section of the note, additional signs, symptoms, or incongruence should be interpreted as inaccurate with my clinical impression. Related Data Home Medications ?Medication ?Instructions ?Recorded ?Confirmed albuterol sulfate 90 mcg/actuation 2 puff inhalation Q4HP PRN 08/05/23 08/05/23 aerosol inhaler (Ventolin HFA) Shortness Of Breath brimonidine 0.2 % eye drops 1 drp Eye-Both BID 08/05/23 08/05/23 budesonide-formoterol HFA 160 2 puff inhalation BID Breathing 08/05/23 08/05/23 mcg-4.5 mcg/actuation aerosol Problems inhaler (Symbicort) cetirizine 10 mg tablet 10 mg PO DAILYP PRN Allergy 08/05/23 08/05/23 Symptoms cholecalciferol (vitamin D3) 50 50 mcg PO DAILY Supplement 08/05/23 08/05/23 mcg (2,000 unit) tablet diltiazem HCl 120 mg 120 mg PO DAILY Heart Rate 08/05/23 08/05/23 capsule,extended release 12 hr duloxetine 60 mg capsule,delayed 60 mg PO DAILY 08/05/23 08/05/23 release hydrochlorothiazide 25 mg tablet 25 mg PO DAILY Fluid 08/05/23 08/05/23 latanoprost 0.005 % eye drops 1 drp Eye-Both HS 08/05/23 08/05/23 levothyroxine 75 mcg tablet 75 mcg PO DAILY Thyroid 08/05/23 08/05/23 pantoprazole 40 mg tablet,delayed 40 mg PO DAILY Acid Reflux 08/05/23 08/05/23 release tiotropium bromide 2.5 2 puff inhalation DAILY Breathing 08/05/23 08/05/23 mcg/actuation mist for inhalation Problems (Spiriva Respimat) Previous Rx's ?Medication ?Instructions ?Recorded furosemide 20 mg tablet (Lasix) 20 mg PO DAILY #30 tabs 08/07/23 levofloxacin 750 mg tablet 750 mg PO Q24H 5 days #5 tabs 08/07/23 nicotine 21 mg/24 hr daily 1 patch transdermal Q24H #28 ea 08/07/23 transdermal patch Allergies Allergy/AdvReac Type Severity Reaction Status Date / Time No Known Allergies Allergy Verified 02/27/19 16:10 [facility] Disclaimer: The information contained in this section may have been updated after the patient was seen, as this information can be updated by other users. Medical History Neuropathy Family History (Updated 08/04/23 @ 23:21 by Juju Lopez RN) Other No significant family history Social History (Updated 08/04/23 @ 23:22 by Juju Lopez RN) Smoking Status: Unknown if ever smoked second hand exposure: Yes alcohol intake: current alcohol intake frequency: 0-2 drinks per day substance use type: marijuana current occupational status: disabled Travel in the last 8 weeks: None household members: none housing: house current occupational exposures/hazards: No caffeine: No ROS Obtained: Yes All systems reviewed & no additional complaints except as documented Physical Exam General General appearance: alert Neck Neck exam: Present trachea midline Chest Chest inspection: Present normal inspection and symmetric chest wall rise Respiratory Respiratory exam: Present normal lung sounds bilaterally; Absent respiratory distress, wheezes, stridor, accessory muscle use or prolonged expiratory phase Cardiovascular Cardiovascular exam: Present regular rate, normal rhythm and other (Pulses equal and symmetric in upper and lower extremities) Abdominal Exam Abdominal exam: Present soft, normal bowel sounds and hernia; Absent distention, tenderness, guarding, rebound or rigidity Extremities Exam Extremities exam: Absent edema Neurological Exam Neurological exam: Present alert, oriented X3 and CN II-XII intact Skin Skin exam: Present warm and dry; Absent cyanosis, diaphoresis or pallor HEART Score HEART Score HEART Score assessment performed?: Yes HEART Score: 3 Critical Care Critical Care Time Critical Care Time: No Medical Decision Making Medical Records Medical records reviewed: Yes I reviewed the patient's medical records. Chuy Inquiry Pt receiving controlled substance: No Chuy was queried for this patient: No Vital Signs Vital Signs: 12/15/23 08:30 12/15/23 09:00 12/15/23 10:00 Temperature 98.0 F Temperature Source Oral Pulse Rate 69 Pulse Rate [Radial] 81 Respiratory Rate 20 19 16 Blood Pressure 141/85 H 144/86 H Blood Pressure [Right Arm] 142/96 H Blood Pressure Mean 107 Blood Pressure Mean [Right Arm] 111 Blood Pressure Source [Right Arm] Automatic Cuff Blood Pressure Position [Right Arm] Sitting 02 Sat by Pulse Oximetry 94 L 90 L 100 Oxygen Delivery Method Room Air Oxygen Flow Rate (LPM) 2 12/15/23 10:30 Temperature Temperature Source Pulse Rate Pulse Rate [Radial] Respiratory Rate 19 Blood Pressure 136/76 Blood Pressure [Right Arm] Blood Pressure Mean 99 Blood Pressure Mean [Right Arm] Blood Pressure Source [Right Arm] Blood Pressure Position [Right Arm] 02 Sat by Pulse Oximetry 100 Oxygen Delivery Method Oxygen Flow Rate (LPM) 2 Lab Data Labs: Lab Results 12/15/23 08:46: VBG pH 7.41, VBG pCO2 40.9, VBG pO2 104.9 H, VBG HCO3 25.2, VBG Total CO2 26.4, VBG O2 Saturation 97.8 H, VBG Base Excess 0.5, VBG Lactic Acid 1.3 12/15/23 08:47: WBC 9.1, RBC 4.32, Hgb 13.6, Hct 42.3, MCV 97.8, MCH 31.5 H, MCHC 32.2, RDW 14.1, Plt Count 287, MPV 8.8, Neut % (Auto) 81.1 H, Lymph % (Auto) 9.5 L, Greene % (Auto) 6.5, Eos % (Auto) 2.3, Baso % (Auto) 0.5, Neut # (Auto) 7.4, Lymph # (Auto) 0.9, Greene # (Auto) 0.6, Eos # (Auto) 0.2, Baso # (Auto) 0.1, Sodium 144, Potassium 3.3 L, Chloride 112 H, Carbon Dioxide 29, Anion Gap 6.3, BUN 35 H, Creatinine 1.30 H, Estimated Creat Clear 49, Estimated GFR 41 L, Est GFR ( Amer) 50 L, Glucose 120 H, Calcium 9.0, Total Bilirubin 0.4, AST 31, ALT 27, Alkaline Phosphatase 93, Troponin I < 0.01, NT-Pro-B Natriuret Pep 92.3, Total Protein 7.1, Albumin 3.9, Globulin 3.2, Albumin/Globulin Ratio 1.2, Lipase 53 12/15/23 09:08: Lactate 0.9 12/15/23 08:47 12/15/23 08:47 Response Orders (Tests/Meds): ED MEDICATIONS Discontinued Medications Generic Name Dose Route Start Last Admin Trade Name Freq PRN Reason Stop Dose Admin Magnesium Sulfate 2 gm in 50 mls @ 50 mls/hr 12/15/23 09:27 12/15/23 09:34 Magnesium Sulfate 2gm/50ml Premix IV 12/15/23 10:26 50 mls/hr ONCE ONE Administration Iopamidol 75 ml 12/15/23 09:36 12/15/23 09:37 Iopamidol-370 (76%);100ml Bottle IV 12/15/23 09:37 75 ml ONCE ONE Administration Magnesium Oxide 800 mg 12/15/23 09:27 12/15/23 09:34 Magnesium Oxide 400mg Tablet PO 12/15/23 09:28 800 mg ONCE ONE Administration Potassium Chloride 60 meq 12/15/23 10:31 12/15/23 10:36 Potassium Chloride 20meq Tab PO 12/15/23 10:32 60 meq ONCE ONE Administration Sodium Chloride 10 ml 12/15/23 09:36 12/15/23 09:36 Sodium Chloride 0.9% 10ml Syr (Rad Only) IV 12/15/23 09:37 10 ml ONCE ONE Administration ORDERS Category Date Time Status CT abdomen pelvis w con Stat Cat Scan 12/15/23 08:46 Completed CXR --portable [XR chest portable] Stat Exams 12/15/23 08:46 Completed CBC w/Auto Diff [Complete Blood Count Auto Diff] Stat Lab 12/15/23 08:47 Completed CMP [Comprehensive Metabolic Panel] Stat Lab 12/15/23 08:47 Completed Lactic Acid Stat Lab 12/15/23 09:08 Completed Lipase Stat Lab 12/15/23 08:47 Completed NT Pro Brain Natriuretic Pep. Stat Lab 12/15/23 08:47 Completed Trop I [Troponin I] Stat Lab 12/15/23 08:47 Completed VBG [Venous Blood Gas] Stat RT 12/15/23 08:46 Completed MDM Narrative Medical Decision Narrative: 63-year-old female history of hypertension, hyperlipidemia, CHF, COPD not on home oxygen, ventral wall abdominal hernia presenting with shortness of breath. Patient states that her abdominal hernia has gotten bigger over the past few weeks, she has thought about coming to the emergency department multiple times over the past couple of weeks to get it looked at. Today, she states that she is feeling a little more short of breath and feels that the hernia is pushing up on her diaphragm and preventing her from breathing. Denies any pain in her abdomen or hernia. Last bowel movement yesterday, but was small. Patient is still passing gas. No urinary symptoms. No cough, fevers, chills, PND, orthopnea, or vomiting. History was obtained via conversation with patient. On arrival, patient hemodynamically stable, alert, oriented x4, appropriate, GCS 15, moving all extremities spontaneously, pupils equal and reactive to light. Full physical exam performed and significant for chronically ill-appearing woman who is in no acute distress. Speaking in full sentences, lungs are clear to auscultation anterior and posterior bilaterally. Cardiac exam normal with normal S1 and S2 without appreciable murmur. Pulses are equal and symmetric in upper and lower extremities. Abdomen is soft, nontender, nondistended. She does have a large abdominal wall ventral hernia that is reducible, bowel sounds within the hernia, bowel sounds in the abdomen outside of the hernia sac. No overlying skin changes. Differential includes small bowel obstruction, obstipation, constipation, COPD exacerbation, pneumonia, CHF, ACS, [place], diaphragmatic hernia, among others. Patient was given 1 L fluid bolus for symptomatic management and correction of underlying abnormalities. Patient placed on continuous cardiac monitoring and continuous pulse ox with initial blood pressure 141/85, heart rate 69, saturation 90% on room air. Independent interpretation of EKG shows sinus rhythm 81 beats a minute without ST or T wave changes concerning for acute schema. KS 170, QRS 101, QTc 471. Workup independently interpreted and significant for normal CBC. Chemistry with mild hypokalemia, this was repleted 60 mill equivalent p.o. VBG nonactionable with normal pH, normal CO2, mild hyperoxia and normal lactate. Mild MANDIE creatinine 1.3, patient given fluids for this. Troponin negative. Patient's lipase also negative. On independent interpretation of imaging, chest x-ray without acute intrathoracic abnormality. Chronic apical lung scarring. Patient does have ventral wall hernia without acute obstruction. Large stool burden. See radiology read for full review of final results. Heart score 3. Because patient at baseline without signs or symptoms of clinical decompensation, deemed appropriate for discharge. Results were relayed to patient who voiced understanding and were agreeable to outpatient management and follow up. I discussed my clinical impression with patient and answered all questions. At this time, the evidence for any other entities in the differential is insufficient to warrant any further testing or ED observation. This was explained as well. Advisory was given that persistent or worsening symptoms require further evaluation. I confirmed the understanding of this discussion. [employer] Risk [employer] disclaimer Much of this encounter note is an electronic computer video game designer spoken language to printed text. Electronic computer video game designer of the spoken language may permit errors. Although I have reviewed the note, some errors may still exist.
[2023-12-15 09:26] LABS: Troponin I < 0.01 ng/ml (0.00-0.034)
[2023-12-15] MEDS: MAGNESIUM SULFATE IN WATER 2 GM/50 ML PIGGYBACK IV (09:34)
[2023-12-15] MEDS: MAGNESIUM OXIDE 400MG TABLET 800 MG PO (09:34)
[2023-12-15] MEDS: SODIUM CHLORIDE 0.9% 10ML SYR (RAD ONLY) 10 ML IV (09:36)
[2023-12-15] MEDS: IOPAMIDOL-370 (76%);100ML BOTTLE 75 ML IV (09:37)
[2023-12-15 09:44] LABS: Lactic Acid 0.9 mmol/L (0.7-2.1)
[2023-12-15 10:00] VITALS: BP 144/86; RESP 16; O2SAT 100
[2023-12-15 10:30] VITALS: BP 136/76; RESP 19; O2SAT 100
[2023-12-15] MEDS: POTASSIUM CHLORIDE 20MEQ TAB 60 MEQ PO (10:36)
--- NOTE | 2023-12-15 11:15 | PC.NURSE ---
rounded on pt, pt sleeping at this time
[2023-12-15 12:20] VITALS: BP 136/76; PULSE 69; RESP 19; TEMP 36.7; O2SAT 100
== END 2023-12-15 12:21 | disposition home or self-care (01) ==
PROVIDERS: Emergency Provider Emergency Medicine; PCP Nurse Practitioner Family
DX: R06.02 Shortness of breath (principal); K43.9 Ventral hernia without obstruction or gangrene; K59.00 Constipation, unspecified; J44.9 Chronic obstructive pulmonary disease, unspecified; I11.0 Hypertensive heart disease with heart failure; I50.9 Heart failure, unspecified; E78.5 Hyperlipidemia, unspecified; Z87.891 Personal history of nicotine dependence
CPT/HCPCS: 71045; 74177; 80053; 82803; 83605; 83690; 83880; 84484; 85025; 93005; 96365; 99285; J3475; Q9967

== ENCOUNTER 2024-02-14 15:05 | Inpatient (IN) | payer OTHER, SELFPAY ==
[2024-02-14] VITALS (9 sets, daily range): BP systolic 160–217; BP diastolic 80–128; PULSE 89–102; RESP 18–22; TEMP 36.7–37.2; O2SAT 90–97; BMI 26.5; BMI 27.1
--- NOTE | 2024-02-14 15:20 | CT_ITS ---
FINAL REPORT TECHNIQUE: After the administration of intravenous contrast, axial images were obtained through the abdomen and pelvis by computed tomography. The study was performed with techniques to keep radiation dose as low as reasonably achievable, (ALARA). Individual dose reduction techniques using automated exposure control or adjustment of mA and/or kV according to the patient's size were employed. CLINICAL HISTORY: large ventral hernia, irreducible COMPARISON: 12/15/2023 FINDINGS: Abdomen: There is a focus of rounded atelectasis at the right base, improved from previous. The liver parenchyma is homogeneous. The gallbladder is significantly distended. There is a multitude of gallstones in the dependent portion of the gallbladder. The spleen, pancreas, and adrenals appear unremarkable. There are multiple enhancing defects in both kidneys, new since previous. The aorta is normal in caliber. There is no free fluid or adenopathy. Ventral hernia is identified. The hernia defect measures approximately 4.5 cm in transverse dimension. There is herniation of the transverse colon through the ventral hernia defect. The colon is significantly distended with stool and fluid. The colon measures up to 7.2 cm in diameter. There may be a distal impaction. Pelvis: The appendix is not identified. The urinary bladder is unremarkable. There is no free fluid or adenopathy. IMPRESSION: Large ventral hernia containing a segment of transverse colon. Distention of the colon with fluid and debris, possibly related to distal colonic impaction. New bilateral wedge-shaped defects in both kidneys, can not exclude emboli or pyelonephritis. Please correlate with clinical presentation. Rounded atelectasis at the right base, improved from previous. Reviewed, Interpreted and Dictated by Jorden Betancourt MD Transcribed by Sweetie Pugh Authenticated and [facility]
[2024-02-14] MEDS: MORPHINE 4MG/ML SYRINGE 4 MG IV (15:27)
[2024-02-14] MEDS: ONDANSETRON 4MG/2ML VIAL 4 MG IV ×2 (15:27→20:59)
[2024-02-14] MEDS: KETOROLAC 30MG/ML VIAL 15 MG IV (15:27)
[2024-02-14] MEDS: 0.9 % SODIUM CHLORIDE 1000ML 1,000 ML 999 ML IV (15:27)
[2024-02-14 15:31] LABS: Basophils # 0.1 K/mm3 (0-0.2); Basophils % 0.4 % (0.1-2.0); Eosinophils % 0.2 % (0.1-12.0); Hematocrit 57.2 % (37.0-47.0); Lymphocytes # 0.6 K/mm3 (0.7-4.5); Lymphocytes % 3.1 % (10-50); Mean Corpuscular Hemoglobin 31.9 pg (27.0-31.2); Mean Corpuscular Volume 99.5 fl (81-99); Mean Platelet Volume 9.1 fl (7.4-10.4); Monocytes # 0.8 K/mm3 (0.1-1.0); Monocytes % 3.9 % (1.7-9.3); Neutrophils # 19.1 K/mm3 (1.8-7.8); Neutrophils % 92.5 % (37.0-80.0); Platelet Count 282 K/mm3 (142-424); Red Blood Count 5.74 M/mm3 (4.20-5.40); White Blood Count 20.7 K/mm3 (4.8-10.8)
--- NOTE | 2024-02-14 15:32 | HMH.EDGENADL ---
Discharge Plan Disposition Patient Disposition: Admitted Clinical Impressions Clinical Impression: Large bowel obstruction, Obstipation Discharge ED Provider: Melvin Escalante General Adult HPI General Chief complaint: PAIN Stated complaint: hernia Time Seen by Provider: 02/14/24 15:18 Mode of Arrival: EMS Source of Information: Patient Limitations: No Limitations Description of Symptoms (Recalled from ER Triage Doc. by RN): Patient with known hernia states she was supposed to have a ct scan at today at 3 however she was unable to get up and was having pain so she called ems. History of Present Illness HPI narrative: Please note that above description of symptoms, in this electronic medical record under categorization of recalled from ER triage doctor by RN are reflective of an initial nursing assessment, however, is not reflective of my full history and physical exam that was personally taken and clarified. Consequentially, this preceding description of symptoms, which may include the patient's categorized chief complaint in the EMR, do not reflect my personal clinical impression, and the ultimate description of history of present illness and patient stated complaints should be deferred to this section of the note. Unless stated otherwise or congruent with this section of the note, additional signs, symptoms, or incongruence should be interpreted as inaccurate with my clinical impression. Related Data Home Medications ?Medication ?Instructions ?Recorded ?Confirmed albuterol sulfate 90 mcg/actuation 2 puff inhalation Q4HP PRN 08/05/23 08/05/23 aerosol inhaler (Ventolin HFA) Shortness Of Breath brimonidine 0.2 % eye drops 1 drp Eye-Both BID 08/05/23 08/05/23 budesonide-formoterol HFA 160 2 puff inhalation BID Breathing 08/05/23 08/05/23 mcg-4.5 mcg/actuation aerosol Problems inhaler (Symbicort) cetirizine 10 mg tablet 10 mg PO DAILYP PRN Allergy 08/05/23 08/05/23 Symptoms cholecalciferol (vitamin D3) 50 50 mcg PO DAILY Supplement 08/05/23 08/05/23 mcg (2,000 unit) tablet diltiazem HCl 120 mg 120 mg PO DAILY Heart Rate 08/05/23 08/05/23 capsule,extended release 12 hr duloxetine 60 mg capsule,delayed 60 mg PO DAILY 08/05/23 08/05/23 release hydrochlorothiazide 25 mg tablet 25 mg PO DAILY Fluid 08/05/23 08/05/23 latanoprost 0.005 % eye drops 1 drp Eye-Both HS 08/05/23 08/05/23 levothyroxine 75 mcg tablet 75 mcg PO DAILY Thyroid 08/05/23 08/05/23 pantoprazole 40 mg tablet,delayed 40 mg PO DAILY Acid Reflux 08/05/23 08/05/23 release tiotropium bromide 2.5 2 puff inhalation DAILY Breathing 08/05/23 08/05/23 mcg/actuation mist for inhalation Problems (Spiriva Respimat) Previous Rx's ?Medication ?Instructions ?Recorded furosemide 20 mg tablet (Lasix) 20 mg PO DAILY #30 tabs 08/07/23 levofloxacin 750 mg tablet 750 mg PO Q24H 5 days #5 tabs 08/07/23 nicotine 21 mg/24 hr daily 1 patch transdermal Q24H #28 ea 08/07/23 transdermal patch Allergies Allergy/AdvReac Type Severity Reaction Status Date / Time No Known Allergies Allergy Verified 02/27/19 16:10 [facility] Disclaimer: The information contained in this section may have been updated after the patient was seen, as this information can be updated by other users. Medical History (Updated 02/14/24 @ 18:19 by Melvin Escalante MD) Hypothyroid HLD (hyperlipidemia) CHF (congestive heart failure) History of lung cancer CIDP (chronic inflammatory demyelinating polyneuropathy) Anxiety HTN (hypertension) GERD (gastroesophageal reflux disease) Neuropathy Family History Other No significant family history Social History (Updated 02/14/24 @ 18:12 by Hailey Wynne RN) Smoking Status: Current every day smoker tobacco type: cigarettes packs per day: 1 second hand exposure: Yes alcohol intake: current alcohol intake frequency: 0-2 drinks per day substance use type: marijuana current occupational status: disabled Travel in the last 8 weeks: None household members: none housing: house current occupational exposures/hazards: No caffeine: No Other Medical History Have you received the Flu Vaccine for this season: No Have you received the Pneumonia Vaccine: No ROS Obtained: Yes All systems reviewed & no additional complaints except as documented Physical Exam General General appearance: alert Head Head exam: atraumatic and normocephalic Eye Eye exam: Present normal appearance, PERRL and EOMI Neck Neck exam: Present normal inspection, full ROM and trachea midline Respiratory Respiratory exam: Present normal lung sounds bilaterally; Absent respiratory distress, wheezes, stridor, accessory muscle use or prolonged expiratory phase Cardiovascular Cardiovascular exam: Present normal rhythm, tachycardia and other (Pulses equal symmetric in upper and lower extremities) Abdominal Exam Abdominal exam: Present soft and hernia (Irreducible, but soft, no overlying skin changes and bowel sounds present within hernia sac as well as an abdomen); Absent distention, tenderness, guarding, rebound, rigidity or pulsatile mass Extremities Exam Extremities exam: Absent edema Neurological Exam Neurological exam: Present alert, oriented X3 and CN II-XII intact; Absent motor sensory deficit Skin Skin exam: Present warm and dry; Absent diaphoresis or erythema Medical Decision Making Medical Records Medical records reviewed: Yes I reviewed the patient's medical records. Screening: Per USPSTF and CDC recommendations, given the prevalence of disease in our region, it is our hospital?s policy to screen for HIV and viral Hepatitis for all patients aged 18 and over and those with ongoing risk factors. Chuy Inquiry Pt receiving controlled substance: No Chuy was queried for this patient: No Vital Signs: 02/14/24 15:05 02/14/24 15:30 02/14/24 16:42 Temperature 98.2 F Temperature Source Oral Pulse Rate 102 H 89 Pulse Rate [Radial] 102 H Respiratory Rate 22 Blood Pressure 197/128 H 189/122 H Blood Pressure [Left Arm] 184/126 H Blood Pressure Mean 142 143 Blood Pressure Mean [Left Arm] 145 Blood Pressure Source Blood Pressure Source [Left Arm] Automatic Cuff Blood Pressure Position Blood Pressure Position [Left Arm] Sitting 02 Sat by Pulse Oximetry 97 94 L 92 L Oxygen Delivery Method Room Air Room Air Room Air 02/14/24 17:00 02/14/24 17:30 02/14/24 18:15 Temperature 98.2 F Temperature Source Oral Pulse Rate 89 89 89 Pulse Rate [Radial] Respiratory Rate 22 Blood Pressure 217/126 H 205/128 H 205/128 H Blood Pressure [Left Arm] Blood Pressure Mean 146 155 Blood Pressure Mean [Left Arm] Blood Pressure Source Automatic Cuff Blood Pressure Source [Left Arm] Blood Pressure Position Sitting Blood Pressure Position [Left Arm] 02 Sat by Pulse Oximetry 91 L 92 L Oxygen Delivery Method Room Air Room Air Room Air Lab Data Lab Results 02/14/24 14:50: WBC 20.7 H*, RBC 5.74 H, Hgb 18.2 H, Hct 57.2 H, MCV 99.5 H, MCH 31.9 H, MCHC 32.0, RDW 14.0, Plt Count 282, MPV 9.1, Neut % (Auto) 92.5 H, Lymph % (Auto) 3.1 L, [place] % (Auto) 3.9, Eos % (Auto) 0.2, Baso % (Auto) 0.4, Neut # (Auto) 19.1 H, Lymph # (Auto) 0.6 L, [place] # (Auto) 0.8, Eos # (Auto) 0.0, Baso # (Auto) 0.1, Total Counted 100, Neutrophils % (Manual) 75, Band Neutrophils % 16.0 H, Lymphocytes % (Manual) 5 L, Monocytes % (Manual) 4, Platelet Estimate Normal, RBC Morphology Not Reportable, Anisocytosis 1+, Microcytosis 1+, Macrocytosis 1+, Sodium 129 L, Potassium 4.6, Chloride 93 L, Carbon Dioxide 20 L, Anion Gap 20.6 H, BUN 47 H, Creatinine 1.60 H, Estimated Creat Clear 39, Estimated GFR 33 L, Est GFR ( Amer) 39 L, Glucose 261 H, Lactate 2.8 H, Calcium 9.5, Total Bilirubin 0.8, AST 51 H, ALT 51, Alkaline Phosphatase 211 H, Troponin I < 0.01, Total Protein 7.9, Albumin 4.4, Globulin 3.5 H, Albumin/Globulin Ratio 1.3, Lipase 31 02/14/24 15:00: HIV 1&2 Antibody Rapid Nonreactive 02/14/24 17:20: Urine Color Yellow, Urine Appearance Clear, Urine pH 5.5, Ur Specific [place] 1.025, Urine Protein Trace, Urine Glucose (UA) Negative, Urine Ketones Trace, Urine Blood Negative, Urine Nitrate Positive, Urine Bilirubin Negative, Urine Urobilinogen 1.0, Ur Leukocyte Esterase Trace 02/14/24 14:50 02/14/24 14:50 Orders (Tests/Meds): ED MEDICATIONS Generic Name Dose Route Start Last Admin Trade Name Freq PRN Reason Stop Dose Admin Acetaminophen 650 mg 02/14/24 17:39 Acetaminophen 325mg Tab PO 03/15/24 17:38 Q4HP PRN Fever or Mild Pain (1-3) Heparin Sodium (Porcine) 5,000 unit 02/14/24 17:45 Heparin Sodium 5,000 Unit/Ml Vial SQ 03/15/24 17:44 Q8H KADY Vancomycin/PEG/NADA/Lysine/Water 1.25 gm in 250 mls @ 125 mls/hr 02/14/24 16:30 02/14/24 16:33 Vancomycin 1.25gm/250ml (Peg) Premix IV 02/14/24 18:29 125 mls/hr ONCE ONE Administration Lactated Ringer's 1,000 mls @ 999 mls/hr 02/14/24 17:39 Lactated Ringer's 1000 Ml Bag IV 02/14/24 18:39 .Q1H1M ONE Ondansetron HCl 4 mg 02/14/24 17:39 Ondansetron 4mg/2ml Vial IV 03/15/24 17:38 Q8HP PRN Nausea Discontinued Medications Generic Name Dose Route Start Last Admin Trade Name Freq PRN Reason Stop Dose Admin Sodium Chloride 1,000 mls @ 999 mls/hr 02/14/24 15:20 02/14/24 15:27 Sod Chlor 0.9% 1000ml Bag IV 02/14/24 16:20 999 mls/hr .Q1H1M ONE Administration Ampicillin Sodium/Sulbactam 100 mls @ 200 mls/hr 02/14/24 16:00 02/14/24 16:10 Sodium 3 gm/ Sodium Chloride IV 02/14/24 16:29 200 mls/hr ONCE ONE Administration Iopamidol 75 ml 02/14/24 16:06 02/14/24 16:07 Iopamidol-370 (76%);100ml Bottle IV 02/14/24 16:07 75 ml ONCE ONE Administration Ketorolac Tromethamine 15 mg 02/14/24 15:20 02/14/24 15:27 Ketorolac 30mg/Ml Vial IV 02/14/24 15:21 15 mg ONCE ONE Administration Lactulose 20 gm 02/14/24 17:22 02/14/24 17:36 Lactulose 20gm/30ml [facility] 02/14/24 17:23 20 gm ONCE ONE Administration Lactulose 20 gm 02/14/24 17:38 Lactulose 20gm/30ml [facility] 02/14/24 17:39 ONCE ONE Lactulose 200 gm 02/14/24 17:38 Lactulose 20gm/30ml [facility] 02/14/24 17:39 ONCE ONE Miscellaneous 1 each 02/14/24 15:45 02/14/24 16:21 Vancomycin Consult Request NOTAPPLIC 03/15/24 15:44 1 each CONSULT PHARMACY KADY Administration Morphine Sulfate 4 mg 02/14/24 15:20 02/14/24 15:27 Morphine 4mg/Ml Syringe IV 02/14/24 15:21 4 mg ONCE ONE Administration Ondansetron HCl 4 mg 02/14/24 15:20 02/14/24 15:27 Ondansetron 4mg/2ml Vial IV 02/14/24 15:21 4 mg ONCE ONE Administration Sennosides 17.2 mg 02/14/24 17:23 Senna 8.6mg Tablet PO 02/14/24 17:24 ONCE ONE Sodium Chloride 10 ml 02/14/24 16:06 02/14/24 16:07 Sodium Chloride 0.9% 10ml Syr (Rad Only) IV 02/14/24 16:07 10 ml ONCE ONE Administration ORDERS Category Date Time Status CT abdomen pelvis w con Stat Cat Scan 02/14/24 15:20 Completed Basic Metabolic Panel [facility] Lab 02/15/24 06:00 Ordered Basic Metabolic Panel [facility] Lab 02/16/24 06:00 Ordered Basic Metabolic Panel AML[facility] Lab 02/17/24 06:00 Ordered Basic Metabolic Panel AMLAB Lab 02/18/24 06:00 Ordered Basic Metabolic Panel AML[facility] Lab 02/19/24 06:00 Ordered Complete Blood Count Auto Diff AMLAB Lab 02/15/24 06:00 Ordered Complete Blood Count Auto Diff AMLAB Lab 02/16/24 06:00 Ordered Complete Blood Count Auto Diff AMLAB Lab 02/17/24 06:00 Ordered Complete Blood Count Auto Diff AMLAB Lab 02/18/24 06:00 Ordered Complete Blood Count Auto Diff AMLAB Lab 02/19/24 06:00 Ordered Complete Blood Count Auto Diff Stat Lab 02/14/24 14:50 Completed Comprehensive Metabolic Panel Stat Lab 02/14/24 14:50 Completed HIV (1&2) Antibody Rapid Stat Lab 02/14/24 15:00 Completed Hep C Ab with Reflex to RNA Stat Lab 02/14/24 15:00 Received Lactic Acid Stat Lab 02/14/24 14:50 Completed Lipase Stat Lab 02/14/24 14:50 Completed Troponin I Q3H Lab 02/14/24 18:30 Ordered Troponin I Q3H Lab 02/14/24 21:30 Ordered Troponin I Stat Lab 02/14/24 14:50 Completed UA [Urinalysis and Microscopic] Stat Lab 02/14/24 17:20 Results Blood Culture Stat Micro 02/14/24 16:05 Received Medical Decision Narrative: 63-year-old female history of hypertension, hyperlipidemia, CAD, CHF, lung cancer status post lobectomy, chemo and radiation currently in remission, COPD presenting with hernia. Patient states that she has had a hernia for very long time. States hernia is not more tender than typical, but it has been cramping more than usual over the last couple of days. Is supposed to be seen at [facility] today, 02/[address] scan to further evaluate, however came here instead. Last time she was able to eat was this morning, she did not have vomiting. Last bowel movement was 2 days ago which she states is normal for her, patient is still passing gas without issue. No fevers or chills, urinary symptoms, blood in her stool, melena, or any other concerns. History was obtained via conversation with patient. On arrival, patient hemodynamically stable, alert, oriented x4, appropriate, GCS 15, moving all extremities spontaneously, pupils equal and reactive to light. Full physical exam performed and significant for chronically ill-appearing female who is in no acute distress. Large ventral abdominal hernia that is irreducible, but has bowel sounds, bowel sounds throughout the abdomen, nontender, no overlying skin changes. Cardiac exam normal. Lungs are clear to auscultation bilaterally. No lower extremity edema. Neurovascular intact. Patient is tachycardic and does have dry mucous membranes. Differential includes incarcerated hernia, strangulated hernia, constipation, small bowel obstruction, Burtrum's, pancreatitis, ACS, [place], among others. Patient placed on continuous cardiac monitoring and continuous pulse ox with initial blood pressure 184/120, heart rate 102 , saturation 97 ORA.Patient was given Zofran, fluids, Toradol, morphine for symptomatic management and correction of underlying abnormalities. Workup independently interpreted and significant for hemoconcentration with WBC 20.7 (90% neutrophils, however), hemoglobin 18.2, MANDIE with creatinine 1.6, BUN 47. Patient acutely hyponatremic 129 from 144 just 2 months prior to this visit. Lactate 2.8, likely secondary to dehydration, but sepsis be ruled out. Troponin negative, LFTs nonactionable. Patient unable to provide urinalysis prior to admission. On independent interpretation of imaging, patient appears to have obstipation from large colorectal stool burden and no obvious evidence of strangulated hernia. Hernia appears to be transverse colon. See radiology read for full review of final results. Gastroenterology was consulted and case was discussed at length, recommended lactulose enema 300 mL and 700 mL saline, stimulant laxative, admission for bowel regimen. These were ordered. Hospitalist was consulted and case was discussed at length, patient to be admitted. Because patient high risk for clinical decompensation, deemed appropriate for inpatient admission. Results were relayed to patient who voiced understanding and patient was agreeable to inpatient admission and management. Patient was admitted to the hospital for further definitive management. Mold Inspector disclaimer Much of this encounter note is an electronic shipyard painter apprentice spoken language to printed text. Electronic shipyard painter apprentice of the spoken language may permit errors. Although I have reviewed the note, some errors may still exist. Critical Care Critical Care Time Critical Care Time: No
[2024-02-14 15:35] LABS: Albumin Level 4.4 g/dl (3.5-5.0); Chloride 93 mmol/L (98-107); Potassium 4.6 mmoL/L (3.5-5.1); Sodium 129 mmol/L (136-145)
[2024-02-14 15:38] LABS: Alanine Aminotransferase 51 U/L (12-78); Albumin/Globulin Ratio 1.3 (1.1-1.8); Alkaline Phosphatase 211 U/L (38-126); Anion Gap 20.6 mEq/L (5-15); Aspartate Amino Transferase 51 U/L (14-36); Bilirubin,Total 0.8 mg/dl (0.2-1.3); Blood Urea Nitrogen 47 mg/dl (7-17); Carbon Dioxide 20 mmol/L (22.0-30.0); Creatinine Clearance Estimated 39 mL/min (50-200); Estimated Glomerular Filt Rate 33 ml/min (>60); GFR (African American) 39 ML/MIN (>60); Globulin 3.5 g/dL (1.3-3.2); Lipase 31 U/L (23-300); MANUAL DIFFERENTIAL MANUAL DIFFERENTIAL (MANUAL DIFF); Total Protein,Serum 7.9 g/dl (6.3-8.2)
[2024-02-14 15:39] LABS: Calcium 9.5 mg/dl (8.4-10.2); Glucose 261 mg/dl (74-100); Hemoglobin 18.2 g/dL (12.2-16.2)
[2024-02-14 15:42] LABS: Lactic Acid 2.8 mmol/L (0.7-2.1)
[2024-02-14 15:51] LABS: Troponin I < 0.01 ng/ml (0.00-0.034)
--- NOTE | 2024-02-14 16:02 | PC.NURSE ---
PT RETURNED FROM CT
[2024-02-14] MEDS: IOPAMIDOL-370 (76%);100ML BOTTLE 75 ML IV (16:07)
[2024-02-14] MEDS: SODIUM CHLORIDE 0.9% 10ML SYR (RAD ONLY) 10 ML IV (16:07)
[2024-02-14] MEDS: AMPICILLIN/SULBACTAM 3 GM in 0.9 % SODIUM CHLORIDE 100 ML IV (16:10)
[2024-02-14] MEDS: VANCOMYCIN CONSULT REQUEST 1 EACH NOTAPPLIC (16:21)
[2024-02-14 16:27] LABS: Lymphocytes % 5 % (10-50); Monocytes % 4 % (2-9); Neutrophils % 75 % (42-76); Total Cells Counted 100
[2024-02-14 16:28] LABS: Anisocytosis 1+; Macrocytosis 1+; Microcytosis 1+; Platelet Estimate Normal
[2024-02-14] MEDS: VANCOMYCIN/WATER FOR INJ (PEG) 1.25 GM/250 ML PIGGYBACK IV (16:33)
[2024-02-14 17:13] LABS: HIV (1&2) Antibody Rapid NONREACTIVE (NONREACTIVE)
[2024-02-14] MEDS: LACTULOSE 20GM/30ML UDC 20 GM RC (17:36)
[2024-02-14 17:58] LABS: Microscopic, Urine URINE MICROSCOPIC (MICROSCOPIC)
[2024-02-14 18:00] LABS: Appearance,Urine CLEAR (Clear); Blood, Urine Negative (Negative); Color,Urine YELLOW (Yellow); Glucose,Urine (UA) Negative (Negative); Ketones,Urine TRACE (Negative); Leukocyte Esterase,Urine TRACE (Negative); Nitrate,Urine POSITIVE (Negative); PH,Urine 5.5 (5.0-8.5); Protein,Urine TRACE (Negative); Specific Gravity, Urine 1.025 (1.005-1.030)
--- NOTE | 2024-02-14 18:04 | PC.NURSE ---
Report given to AARON Tomlinson o Med Surg.
[2024-02-14 18:14] LABS: Bilirubin,Urine Negative (Negative)
[2024-02-14 18:26] LABS: Bacteria,Urine 3+ /lpf; Mucus,Urine 3+ /lpf; WBC,Urine 20-50 #/hpf (0-3)
[2024-02-14] MEDS: LACTULOSE 20GM/30ML UDC 200 GM RC (18:33)
[2024-02-14] MEDS: SENNA 8.6MG TABLET 17.2 MG PO (18:33)
[2024-02-14] MEDS: HEPARIN SODIUM 5,000 UNIT/ML VIAL 5000 UNIT SQ (18:34)
[2024-02-14] MEDS: LACTATED RINGERS 1000ML 1,000 ML 999 ML IV (18:34)
--- NOTE | 2024-02-14 19:14 | PC.NURSE ---
PATIENT JUST ARRIVED TO FLOOR IN THE LAST HOUR. ENEMA ADMINISTERED UPON ARRIVAL. MODERATE AMOUNT OF HARD STOOL OUT THUS FAR. PT IS INCONTINENT. LARGE ABD HERNIA PRESENT. ABD HARD AND TIGHT, PAIN PER PALPATION. REQUESTING WATER. NO OTHER NEEDS NOTED AT THIS TIME, BED SAFETY ON.
[2024-02-14 19:16] LABS: Troponin I 0.02 ng/ml (0.00-0.034)
--- NOTE | 2024-02-14 19:17 | PC.NURSE ---
MD YEH MADE AWARE OF PT HIGH B/P UPON ARRIVAL TO FLOOR. 160/100 MANUALLY.
[2024-02-14 19:25] LABS: Reflex Lactic Add Lactic Reflex
[2024-02-14 19:48] LABS: Lactic Acid Follow Up (RFLX 1) 2.3 mmol/L (0.7-2.1)
--- NOTE | 2024-02-14 20:50 | PC.NURSE ---
Addendum entered by Munira Peñaloza RN 02/14/24 20:53: Morphine 2 mg (1 mL) IV every 4 hours PRN was obtained. Original Note: Entered patient's room at around 20:48, patient voiced that she was in severe pain. Upon assessment, she stated that her pain was in her belly. Dr Vargas was paged at this time to request an order for pain medication to treat severe pain. Waiting for orders.
[2024-02-14] MEDS: MORPHINE 2MG/ML SYRINGE 2 MG IV (21:00)
[2024-02-14 21:26] LABS: Reflex Lactic (2 hrs) Add Lactic Reflex
--- NOTE | 2024-02-14 21:59 | EXP.HP ---
History of Present Illness *Admission Date: 02/14/24 *Reason for visit:: abdominal pain *History of present illness: Patient is a 63-year-old female with past medical history of CAD CHF lung cancer status post lobectomy chemo and radiation currently in remission, COPD who presents to the hospital due to abdominal pain. According to the patient she had abdominal hernia which has become more painful. Patient was supposed to visit [facility] facility however due to worsening pain they decided to come to the H&H. Patient had last bowel movement around 2 days ago. [facility] Disclaimer: The information contained in this section may have been updated after the patient was seen, as this information can be updated by other users. Medical History (Updated 02/14/24 @ 23:02 by Jacey Vargas MD) Hypothyroid HLD (hyperlipidemia) CHF (congestive heart failure) History of lung cancer CIDP (chronic inflammatory demyelinating polyneuropathy) Anxiety HTN (hypertension) GERD (gastroesophageal reflux disease) Neuropathy Family History (Updated 02/14/24 @ 18:24 by Hailey Wynne RN) Other Cancer Coronary artery disease Diabetes Heart attack No significant family history Stroke Social History (Updated 02/14/24 @ 18:12 by Hailey Wynne RN) Smoking Status: Current every day smoker tobacco type: cigarettes packs per day: 1 second hand exposure: Yes alcohol intake: current alcohol intake frequency: 0-2 drinks per day substance use type: marijuana current occupational status: disabled Travel in the last 8 weeks: None household members: none housing: house current occupational exposures/hazards: No caffeine: No Other Medical History Have you received the Flu Vaccine for this season: No Have you received the Pneumonia Vaccine: Yes Review of Systems Review of Systems Review of systems (narrative): documented as per HPI Meds Home Medications and Allergies Home Medications ?Medication ?Instructions ?Recorded ?Confirmed ?Type albuterol sulfate 90 mcg/actuation 2 puff inhalation Q4HP PRN 08/05/23 08/05/23 History aerosol inhaler (Ventolin HFA) Shortness Of Breath brimonidine 0.2 % eye drops 1 drp Eye-Both BID 08/05/23 08/05/23 History budesonide-formoterol HFA 160 2 puff inhalation BID Breathing 08/05/23 08/05/23 History mcg-4.5 mcg/actuation aerosol Problems inhaler (Symbicort) cetirizine 10 mg tablet 10 mg PO DAILYP PRN Allergy 08/05/23 08/05/23 History Symptoms cholecalciferol (vitamin D3) 50 50 mcg PO DAILY Supplement 08/05/23 08/05/23 History mcg (2,000 unit) tablet diltiazem HCl 120 mg 120 mg PO DAILY Heart Rate 08/05/23 08/05/23 History capsule,extended release 12 hr duloxetine 60 mg capsule,delayed 60 mg PO DAILY 08/05/23 08/05/23 History release hydrochlorothiazide 25 mg tablet 25 mg PO DAILY Fluid 08/05/23 08/05/23 History latanoprost 0.005 % eye drops 1 drp Eye-Both HS 08/05/23 08/05/23 History levothyroxine 75 mcg tablet 75 mcg PO DAILY Thyroid 08/05/23 08/05/23 History pantoprazole 40 mg tablet,delayed 40 mg PO DAILY Acid Reflux 08/05/23 08/05/23 History release tiotropium bromide 2.5 2 puff inhalation DAILY Breathing 08/05/23 08/05/23 History mcg/actuation mist for inhalation Problems (Spiriva Respimat) furosemide 20 mg tablet (Lasix) 20 mg PO DAILY #30 tabs 08/07/23 Rx levofloxacin 750 mg tablet 750 mg PO Q24H 5 days #5 tabs 08/07/23 Rx nicotine 21 mg/24 hr daily 1 patch transdermal Q24H #28 ea 08/07/23 Rx transdermal patch New Prescriptions to Start Prescriptions: Allergies Allergy/AdvReac Type Severity Reaction Status Date / Time No Known Allergies Allergy Verified 02/27/19 16:10 Exam Data for Last 24 hours Vital signs and Labs for Last 24 Hours: Temp Pulse Resp BP Pulse Ox O2 Del Method 98.2 F 89 22 205/128 H 90 L Room Air 02/14/24 18:15 02/14/24 18:15 02/14/24 18:15 02/14/24 18:15 02/14/24 18:00 02/14/24 19:00 Laboratory Results - last 24 hr 02/14/24 14:50: WBC 20.7 H*, RBC 5.74 H, Hgb 18.2 H, Hct 57.2 H, MCV 99.5 H, MCH 31.9 H, MCHC 32.0, RDW 14.0, Plt Count 282, MPV 9.1, Neut % (Auto) 92.5 H, Lymph % (Auto) 3.1 L, [place] % (Auto) 3.9, Eos % (Auto) 0.2, Baso % (Auto) 0.4, Neut # (Auto) 19.1 H, Lymph # (Auto) 0.6 L, [place] # (Auto) 0.8, Eos # (Auto) 0.0, Baso # (Auto) 0.1, Total Counted 100, Neutrophils % (Manual) 75, Band Neutrophils % 16.0 H, Lymphocytes % (Manual) 5 L, Monocytes % (Manual) 4, Platelet Estimate Normal, RBC Morphology Not Reportable, Anisocytosis 1+, Microcytosis 1+, Macrocytosis 1+, Sodium 129 L, Potassium 4.6, Chloride 93 L, Carbon Dioxide 20 L, Anion Gap 20.6 H, BUN 47 H, Creatinine 1.60 H, Estimated Creat Clear 39, Estimated GFR 33 L, Est GFR ( Amer) 39 L, Glucose 261 H, Lactate 2.8 H, Calcium 9.5, Total Bilirubin 0.8, AST 51 H, ALT 51, Alkaline Phosphatase 211 H, Troponin I < 0.01, Total Protein 7.9, Albumin 4.4, Globulin 3.5 H, Albumin/Globulin Ratio 1.3, Lipase 31 02/14/24 15:00: HIV 1&2 Antibody Rapid Nonreactive 02/14/24 17:20: Urine Color Yellow, Urine Appearance Clear, Urine pH 5.5, Ur Specific [place] 1.025, Urine Protein Trace, Urine Glucose (UA) Negative, Urine Ketones Trace, Urine Blood Negative, Urine Nitrate Positive, Urine Bilirubin Negative, Urine Urobilinogen 1.0, Ur Leukocyte Esterase Trace, Urine RBC 5-10, Urine WBC 20-50, Ur Squamous Epith Cells 10-20, Urine Bacteria 3+, Urine Mucus 3+ 02/14/24 18:45: Lactate 2.3 H, Troponin I 0.02 I & O for Last 24 hours: Intake & Output 02/11/24 02/12/24 02/13/24 02/14/24 23:59 23:59 23:59 23:59 Weight 69.309 kg Constitutional Constitutional: no acute distress *Routine HEENT Exam Head: Present normocephalic Eye: Present EOMI and PERRL ENT: Present mucous membranes moist *Routine Neck Exam Neck: Present supple; Absent lymphadenopathy *Routine Respiratory Exam Respiratory: Present CTA bilaterally *Routine Cardiovascular Exam Cardiovascular: Present RRR *Routine Abdominal Exam Abdominal: Present soft, normoactive bowel sounds and tenderness *Routine Rectal Exam Rectal:: deferred *Routine Genitalia Exam Genitalia:: deferred *Routine Extremities Exam Extremities: Absent cyanosis, clubbing or edema *Routine Skin Exam Skin: Present warm; Absent rash *Routine Neurological Exam Neurological: Present alert and oriented X3 Assessment and Plan *Assessment and plan (1) Constipation: Status: Acute Category: Medical Code(s): K59.00 - Constipation, unspecified (2) Acute abdominal pain: Status: Acute Category: Medical Code(s): R10.9 - Unspecified abdominal pain (3) MANDIE (acute kidney injury): Status: Acute Category: Medical Code(s): N17.9 - Acute kidney failure, unspecified Plan Patient is a 63-year-old female with past medical history of CAD CHF lung cancer status post lobectomy chemo and radiation currently in remission, COPD who presents to the hospital due to abdominal pain. According to the patient she had abdominal hernia which has become more painful. Patient was supposed to visit [facility] facility however due to worsening pain they decided to come to the H&H. Patient had last bowel movement around 2 days ago. Assessment and plan Abdominal pain likely due to constipation Abdominal wall hernia Lactulose enema ordered in the emergency department Consult gastroenterology N.p.o. for now Pain control Hyponatremia likely due to poor oral intake Start IV normal saline Monitor BMP Acute kidney injury likely prerenal Continue IV fluids Monitor creatinine Hypoglycemia likely due to diabetes mellitus Check A1c Lactic acidosis, leukocytosis ordered Monitor lactic acid If concern for mesenteric ischemia we will order CT abdomen angiogram with contrast however patient has MANDIE, will hold off on CT angio for now Will continue IV fluid for now Monitor and replace electrolytes Ordered Zosyn empirically New bilateral wedge-shaped defects in both kidneys, can not exclude emboli or pyelonephritis on CT abdomen Monitor for hematuria, CT angio abdomen pelvis when stable DVT prophylaxis-heparin
[2024-02-14 22:18] LABS: Lactic Acid Follow up (RFLX 2) 2.8 mmol/L (0.7-2.1)
[2024-02-14 22:19] LABS: Troponin I 0.02 ng/ml (0.00-0.034)
--- NOTE | 2024-02-14 23:34 | PC.NURSE ---
Entered patient's room around 23:28, patient was rating her pain as a level 9. She stated that the morphine has not really helped her belly pain since receiving it at 21:00 per MAR. The next dose is not due until 01:[address] Vargas was paged at this time. Waiting for orders.
[2024-02-15] VITALS (16 sets, daily range): BP systolic 16–194; BP diastolic 11–112; PULSE 0–128; RESP 18–30; TEMP 36.2–38.3; O2SAT 79–100; BMI 27.1
[2024-02-15] MEDS: 0.9 % SODIUM CHLORIDE 1000ML 1,000 ML 100 ML IV (00:15)
[2024-02-15] MEDS: PIPERACILLIN/TAZO 3.375 GM in 0.9 % SODIUM CHLORIDE 50 ML IV (00:15)
[2024-02-15] MEDS: HYDROMORPHONE 2MG/ML SYRINGE 1 MG IV (00:25)
[2024-02-15] MEDS: HEPARIN SODIUM 5,000 UNIT/ML VIAL 5000 UNIT SQ (01:57)
--- NOTE | 2024-02-15 05:31 | XR_ITS ---
PROCEDURE INFORMATION: Exam: XR Chest Exam date and time: 02/15/2024 5:41 AM Age: 63 years old Clinical indication: Dyspnea; Additional info: SOB TECHNIQUE: Imaging protocol: Radiologic exam of the chest. Views: 1 view. COMPARISON: CR XR CHEST PORTABLE 12/15/2023 8:45 AM FINDINGS: Lungs: Unremarkable. No consolidation. Basilar scarring/atelectasis. Pleural spaces: Unremarkable. No pleural effusion. No pneumothorax. Heart/Mediastinum: Unremarkable. No cardiomegaly. Bones/joints: Unremarkable. IMPRESSION: No acute findings.
--- NOTE | 2024-02-15 05:31 | PC.NURSE ---
Concerned for change of status in patient at this time. Dr Vargas was paged at this time and updated about patient's orientation, current status, and vital signs. Change in rhythm was noticed. Patient also noticed to have slight mottling in both legs. Respirations have increased. Respiratory has also been paged to take an EKG. Dr Vargas stated he will come and see the patient.
--- NOTE | 2024-02-15 05:35 | XR_ITS ---
PROCEDURE INFORMATION: Exam: XR Abdomen Exam date and time: 02/15/2024 5:57 AM Age: 63 years old Clinical indication: Abdominal pain; Generalized TECHNIQUE: Imaging protocol: Radiologic exam of the abdomen. Views: Frontal supine view of the abdomen. 1 View. COMPARISON: CT ABDOMEN PELVIS W CON 02/14/2024 3:59 PM FINDINGS: Gastrointestinal tract: Air distended loops of bowel are noted with small bowel reaching up to 4.1 cm. Diffuse degenerative change of the visualized osseous structures. Bones/joints: See Gastrointestinal tract finding. IMPRESSION: Findings again demonstrated small bowel obstruction with similar caliber loops on study performed 02/14/2024. Correlate clinically.
--- NOTE | 2024-02-15 05:40 | ECG_ITS ---
APPROVED REPORT Exam: Resting ECG HR:99 bpm ECG Measurements Heart Rate 99 AXES NH 150 P 78 QRSd 81 QRS 88 QT 321 T 103 QTc 377 Conclusion SINUS RHYTHM POSSIBLE LEFT ATRIAL ENLARGEMENT [-0.1mV P-WAVE IN V1/V2] MINIMAL ST DEPRESSION [0.025+ mV ST DEPRESSION] BORDERLINE ECG UNCONFIRMED REPORT Electronically signed by : Marcelino Jaffe MD 02/17/2024 15:27:36
[2024-02-15] MEDS: FUROSEMIDE 20 MG/2 ML VIAL 40 MG IV (05:45)
[2024-02-15] MEDS: ACETAMINOPHEN 650MG SUPPOSITORY 650 MG RC (05:45)
[2024-02-15 05:58] LABS: POC Glucose,Bedside 138 (70-110)
[2024-02-15] MEDS: IPRATROPIUM/ALBUTEROL 3 ML NEB IH (06:00)
[2024-02-15] MEDS: NOREPINEPHRINE BITARTRATE/D5W 8 MG/250 ML PLAST..BAG 16 MG IV (06:22)
[2024-02-15] MEDS: SUCCINYLCHOLINE 20MG/ML 10 ML MDV 100 MG IV (06:22)
[2024-02-15] MEDS: ETOMIDATE 40MG/20ML VIAL 20 MG IV (06:22)
--- NOTE | 2024-02-15 06:24 | XR_ITS ---
FINAL REPORT CLINICAL HISTORY: post intubation COMPARISON: 1 hour prior FINDINGS: The patient is intubated. Endotracheal tube is present with the tip 5 cm superior to the chary. The heart size is normal. The mediastinum is normal. The lungs are better inflated. Linear opacity at the right lung base probably represents scar. There is no focal infiltrate or edema. There are no pleural effusions. There is no pneumothorax. There is no osseous abnormality. IMPRESSION: No acute cardiopulmonary process. Endotracheal tube tip 5 cm superior to the chary. Reviewed, Interpreted and Dictated by Jorden Betancourt MD Transcribed by Keyonna Devine Authenticated and [facility]
--- NOTE | 2024-02-15 06:29 | EXP.EVENT.NO ---
I was called by RN to come see the patient, on arrival patient appears to be having shortness of breath however able to follow commands, she has fever of 102.2, BP is 135/77, she is tachypneic. Patient appears to be in respiratory distress, oxygen saturation is 88% on room air, patient was started on oxygen with nasal cannula, and then switched to BiPAP due to concern for respiratory distress, Breathing treatment ordered, then [facility] was called and patient was prepped for intubation, ED attending in room, repeat manual BP recorded 90/58, patient was started on fluids and levophed, pulmonary and cardiology consults were placed, VBG, CBC, BMP, troponin, CXR, KUB were ordered. Patient moved to ICU bed, art line being inserted, iv solumedrol ordered.
[2024-02-15] MEDS: VASOPRESSIN 40 UNIT in 0.9 % SODIUM CHLORIDE 100 ML IV (07:00)
[2024-02-15] MEDS: propofoL 100 ML 2.08 MG IV (07:00)
[2024-02-15] MEDS: LACTATED RINGERS 1000ML 1,000 ML 999 ML IV (07:30)
[2024-02-15] MEDS: IPRATROPIUM/ALBUTEROL 3 ML NEB 18 ML IH (07:37)
[2024-02-15 07:39] LABS: Anion Gap 22.3 mEq/L (5-15); Blood Urea Nitrogen 47 mg/dl (7-17); Calcium 6.1 mg/dl (8.4-10.2); Chloride 97 mmol/L (98-107); Creatinine Clearance Estimated 30 mL/min (50-200); Estimated Glomerular Filt Rate 24 ml/min (>60); GFR (African American) 29 ML/MIN (>60); Potassium 4.3 mmoL/L (3.5-5.1); Sodium 122 mmol/L (136-145)
[2024-02-15 07:41] LABS: Carbon Dioxide 7 mmol/L (22.0-30.0); Glucose 458 mg/dl (74-100)
--- NOTE | 2024-02-15 07:41 | P.PN_ITS ---
Critical Care Event Note Summary Code activated: No Narrative: I was called upstairs for intubation. Upon arrival the patient was GCS 3, being bagged, was mottled. Patient had a palpable carotid pulse but they had not been able to obtain a blood pressure for some time. There was limited information available to me regarding the patient's decline. We hung a pressure bag of fluids and obtained a manual blood pressure of around 90/60. Sats were intermittently obtained but were in the low 90s with bagging. The patient was intubated by me at bedside. Postintubation blood pressure of 80/50. The patient was transported to the ICU room. Lung sounds on the vent remained tight and peak airway pressures were high. She was initiated on multiple DuoNebs. Chest x-ray confirmed tube placement without obvious pneumothorax. We were still unable to obtain consistent cuff pressures. She was placed on Levophed which was rapidly titrated up. We were able to place a left radial A-line which showed continued hypotension. We called pharmacy to make a vaso drip for us and epinephrine spritzers were utilized in the meantime. Patient aroused somewhat and began fighting the vent. She was placed on low-dose propofol for sedation. I also placed additional ultrasound-guided IV for access. I informed Dr. Vargas of our interventions and the patient's tenuous hemodynamic status. This case had a high probability of a clinically significant, sudden, or life threatening deterioration of this patient's condition which required my full and direct attention, intervention and personal management. Critical care time: 30 - 74 mins [facility] Critical Care Exam Physical Exam Vital signs: Temp Pulse Resp BP Pulse Ox O2 Del Method 100.9 F H 101 H 30 H 101/71 L 91 L Room Air 02/15/24 07:22 02/15/24 04:00 02/15/24 04:00 02/15/24 04:00 02/15/24 04:00 02/15/24 04:00 Narrative: Pale, mottled, unresponsive Constitutional Constitutional: Present obtunded Routine HEENT Exam Head: Present normocephalic Routine Neck Exam Neck: Present trachea midline Routine Respiratory Exam Respiratory: Present wheezes and diminished air movement Comments: Patient actively being bagged Routine Cardiovascular Exam Comments: Palpable carotid pulse Routine Abdominal Exam Comments: Midline abdominal wall hernia with gas Routine Extremities Exam Extremities: Present cyanosis Routine Neurological Exam Comments: GCS 3 [facility] Cardiology Procedures Arterial Line Time out performed: Yes Size (Gauge): 20 Technique used: guide wire technique Post-Procedure: line sutured into place Patient tolerated procedure: well Complications: none Site: left Intubation Time out performed: Yes Sedative: etomidate Mg given: 20 Paralytic: succinylcholine Mg given: 100 Laryngoscope: Snehal (3) ET tube size: 7.5 ET tube uncuffed: No Tube placement confirmation: visualized tube passing through cords, equal breath sounds bilaterally and confirmation by capnometry Patient tolerated procedure: well and no complications Intubation complications: none
[2024-02-15 07:47] LABS: Troponin I 0.04 ng/ml (0.00-0.034)
[2024-02-15 08:00] LABS: Basophils % 0.5 % (0.1-2.0); Eosinophils % 0.3 % (0.1-12.0); Hematocrit 42.3 % (37.0-47.0); Lymphocytes % 10.8 % (10-50); Mean Corpuscular HGB Conc 26.9 g/dL (31.8-35.4); Mean Corpuscular Hemoglobin 32.4 pg (27.0-31.2); Mean Corpuscular Volume 120.1 fl (81-99); Mean Platelet Volume 8.9 fl (7.4-10.4); Monocytes # 0.6 K/mm3 (0.1-1.0); Monocytes % 6.2 % (1.7-9.3); Neutrophils # 7.4 K/mm3 (1.8-7.8); Neutrophils % 82.3 % (37.0-80.0); Platelet Count 123 K/mm3 (142-424); Red Blood Count 3.52 M/mm3 (4.20-5.40)
--- NOTE | 2024-02-15 08:01 | EXP.PHA.CONS ---
Pharmacy Consult Date: 02/15/24 Time: 08:01 Referring provider: DR. YEH Reason for Consult:: VANCOMYCIN DOSING Allergies Allergy/AdvReac Type Severity Reaction Status Date / Time No Known Allergies Allergy Verified 02/27/19 16:10 Home Medications ?Medication ?Instructions ?Recorded ?Confirmed ?Type albuterol sulfate 90 mcg/actuation 2 puff inhalation Q4HP PRN 08/05/23 08/05/23 History aerosol inhaler (Ventolin HFA) Shortness Of Breath brimonidine 0.2 % eye drops 1 drp Eye-Both BID 08/05/23 08/05/23 History budesonide-formoterol HFA 160 2 puff inhalation BID Breathing 08/05/23 08/05/23 History mcg-4.5 mcg/actuation aerosol Problems inhaler (Symbicort) cetirizine 10 mg tablet 10 mg PO DAILYP PRN Allergy 08/05/23 08/05/23 History Symptoms cholecalciferol (vitamin D3) 50 50 mcg PO DAILY Supplement 08/05/23 08/05/23 History mcg (2,000 unit) tablet diltiazem HCl 120 mg 120 mg PO DAILY Heart Rate 08/05/23 08/05/23 History capsule,extended release 12 hr duloxetine 60 mg capsule,delayed 60 mg PO DAILY 08/05/23 08/05/23 History release hydrochlorothiazide 25 mg tablet 25 mg PO DAILY Fluid 08/05/23 08/05/23 History latanoprost 0.005 % eye drops 1 drp Eye-Both HS 08/05/23 08/05/23 History levothyroxine 75 mcg tablet 75 mcg PO DAILY Thyroid 08/05/23 08/05/23 History pantoprazole 40 mg tablet,delayed 40 mg PO DAILY Acid Reflux 08/05/23 08/05/23 History release tiotropium bromide 2.5 2 puff inhalation DAILY Breathing 08/05/23 08/05/23 History mcg/actuation mist for inhalation Problems (Spiriva Respimat) furosemide 20 mg tablet (Lasix) 20 mg PO DAILY #30 tabs 08/07/23 Rx levofloxacin 750 mg tablet 750 mg PO Q24H 5 days #5 tabs 08/07/23 Rx nicotine 21 mg/24 hr daily 1 patch transdermal Q24H #28 ea 08/07/23 Rx transdermal patch New Prescriptions to Start Prescriptions: Height: 1.6 m Weight: 69.309 kg Laboratory Results:: Laboratory Results - last 24 hr 02/14/24 14:50: WBC 20.7 H*, RBC 5.74 H, Hgb 18.2 H, Hct 57.2 H, MCV 99.5 H, MCH 31.9 H, MCHC 32.0, RDW 14.0, Plt Count 282, MPV 9.1, Neut % (Auto) 92.5 H, Lymph % (Auto) 3.1 L, [place] % (Auto) 3.9, Eos % (Auto) 0.2, Baso % (Auto) 0.4, Neut # (Auto) 19.1 H, Lymph # (Auto) 0.6 L, [place] # (Auto) 0.8, Eos # (Auto) 0.0, Baso # (Auto) 0.1, Total Counted 100, Neutrophils % (Manual) 75, Band Neutrophils % 16.0 H, Lymphocytes % (Manual) 5 L, Monocytes % (Manual) 4, Platelet Estimate Normal, RBC Morphology Not Reportable, Anisocytosis 1+, Microcytosis 1+, Macrocytosis 1+, Sodium 129 L, Potassium 4.6, Chloride 93 L, Carbon Dioxide 20 L, Anion Gap 20.6 H, BUN 47 H, Creatinine 1.60 H, Estimated Creat Clear 39, Estimated GFR 33 L, Est GFR ( Amer) 39 L, Glucose 261 H, Lactate 2.8 H, Calcium 9.5, Total Bilirubin 0.8, AST 51 H, ALT 51, Alkaline Phosphatase 211 H, Troponin I < 0.01, Total Protein 7.9, Albumin 4.4, Globulin 3.5 H, Albumin/Globulin Ratio 1.3, Lipase 31 02/14/24 15:00: HIV 1&2 Antibody Rapid Nonreactive 02/14/24 17:20: Urine Color Yellow, Urine Appearance Clear, Urine pH 5.5, Ur Specific [place] 1.025, Urine Protein Trace, Urine Glucose (UA) Negative, Urine Ketones Trace, Urine Blood Negative, Urine Nitrate Positive, Urine Bilirubin Negative, Urine Urobilinogen 1.0, Ur Leukocyte Esterase Trace, Urine RBC 5-10, Urine WBC 20-50, Ur Squamous Epith Cells 10-20, Urine Bacteria 3+, Urine Mucus 3+ 02/14/24 18:45: Lactate 2.3 H, Troponin I 0.02 02/14/24 21:45: Lactate 2.8 H, Troponin I 0.02 02/15/24 05:51: POC Glucose 138 H 02/15/24 06:20: Sodium 122 L, Potassium 4.3, Chloride 97 L, Carbon Dioxide 7 L* D, Anion Gap 22.3 H, BUN 47 H, Creatinine 2.10 H D, Estimated Creat Clear 30, Estimated GFR 24 L, Est GFR ( Amer) 29 L D, Glucose 458 H* D, Calcium 6.1 L, Troponin I 0.04 H Medical History: Medical History (Updated 02/14/24 @ 23:02 by Jacey Vargas MD) Hypothyroid HLD (hyperlipidemia) CHF (congestive heart failure) History of lung cancer CIDP (chronic inflammatory demyelinating polyneuropathy) Anxiety HTN (hypertension) GERD (gastroesophageal reflux disease) Neuropathy Assessment and Plan Assessment and plan all Dx Assessment and Plan for all problems:: Pharmacokinetic dosing service Objective: Patient: Floor: Age: 63 yo Serum creatinine: 2.1 mg/dL Height: 63.0 Inches Weight (kg): 69 Assessment: IBW (kg): 52.40 Dosing wt(kg): 69 Estimated Creatinine clearance (ml/min): 22.7 CRCL method: Cockcroft and Gault using ibw(default). Drug selected: Vancomycin Loading dose (mg): 0 Vd (liters): 55.2 (factor used: 0.8 L/kg) Dev (hr-1): 0.023 Half life (hrs): 30.14 Recommended dose: 1000 mg Interval: 36 hrs Infusion time (hrs): 2.0 Predicted peak (mcg/mL): 31.4 Predicted trough (mcg/mL): 14.37 Total body weight is being used for vancomycin dosing. Recommendations: Give Vancomycin 1000 mg q 36 hrs with an expected Cpeak of 31.4 mcg/ml and an expected Ctrough of 14.37 mcg/ml ----Vanco only - ignore for aminoglycosides----- CLvanco= 1.27 L/hr AUC 0-24 /MARLO Data: MARLO 0.5 mcg/mL: AUC/MARLO: 1049.9 MARLO 1.0 mcg/mL: AUC/MARLO: 524.9 --------- MARLO 1.5 mcg/mL: AUC/MARLO: 350.0 MARLO 2.0 mcg/mL: AUC/MARLO: 262.5
[2024-02-15] MEDS: MORPHINE 4MG/ML SYRINGE 4 MG IV (08:34)
[2024-02-15 08:54] LABS: Hemoglobin 11.4 g/dL (12.2-16.2)
--- NOTE | 2024-02-15 09:39 | PC.NURSE ---
Addendum entered by Munira Peñaloza RN 02/15/24 10:05: Vasopressin was also given as a medication order. Original Note: Late Entry: Rapid Response Assessment Note (for 05:55) Precipitating Factors Reason Team Activated/Patient Complaint - Sequence of Events 05:20 Patient's status had changed. Charge nurse came to check on the patient with additional staff members. MD was requested to be immediately paged. I updated him about the patient's status change and recent vital signs (see prior note). 05:30 Sam DELEON arrived around this time. Orders were given, x-rays (chest/abdomen), EKGs, and labs were requested. Medications were given per JUL. Patient was no longer alert and oriented x4. Patient was only able to answer to her self and place. Patient was very diaphoretic and eyes appeared to be glazed. Patient was placed onto oxygen via nasal cannula. Blood pressures were starting to decrease. 135/77 at this time. MD started placing more orders and requested a BIPAP. Patient's rectal temperature was 102.2. Oxygen saturations were dropping into the 80s. Crash cart was brought into room. 05:45 Respiratory therapist arrived to take EKG. Fluid started leaking from the patient's mouth. Nurse was at bedside suctioning the patient. Patient clamped down on suction and started to choke on her own saliva. Patient was wide-eyed and became unresponsive. Rapid Response was called (at 05:55). 06:00 Full team arrived around this time. ER MD, ER staff, Digital Marketing Apprentice, and additional Med-Surg staff were at the scene. Patient was started to be bagged. Rapid Response protocol was implemented. Intubation kit and arterial line kit was requested by ER MD. ER MD started to request orders (see below). Manual blood pressures were started. At 06:17, blood pressure was 90/58. A color change was noticed at 06:22; patient color was pallor and mottling increased in patient's lower bilateral extremities. Patient's pulses were extremely diminished. Bag of pressors and fluids were hung at 06:22. Etomidate and succinylcholine were injected at around 06:23. 06:20 Glucose reading from lab draw was 458. 06:30 Patient was transferred to a step-down room ([facility]). Propofol was hung. Successful intubation by 06:35. Sputum was suctioned at 06:37. Patient was quickly hooked up to the dynascope. Arterial line was inserted at 06:41 successfully in the left arm; it was stitched into place. Labs were successfully drawn at around 06:43. Another x-ray was taken of the patient's chest. 06:45 Manual blood pressure (78/56) 06:50 Vital signs: heart rate (91), respirations (40) 06:55 Vital signs: heart rate (83), respirations (42), arterial line blood pressure (57/45) Pressor bag rate increased. 07:00 Arterial line blood pressure (64/72) Ultrasound guided IV was in place in the right antecubital. Arm board secured on left arm to stabilize arterial line. 07:05 Arterial line blood pressure (89/70) Respirations (42) Background/History Patient has an extensive medical history. Patient was admitted for a large bowel obstruction and an acute kidney injury. She also has a protruding herniation located in her upper abdominal area; concerns per progress reports were for transverse colon protrusion. Patient has a large stool burden as well; she previously received a soap-subs enema with little output (on 02/13). She has a history of lung cancer in remission, CAD, hypertension, hyperlipidemia, CHF, COPD, tobacco use, constipation, obstipation, neuropathy, acute/chronic respiratory failure, sepsis, elevated BNP, and elevated troponins. Patient is expected to have a gastroenterology consult and has been NPO since midnight. Assessment Findings Pre-Rapid Response Patient was very diaphoretic and orientation was deteriorating since initial assessment. Patient was rubbing belly and grunting. A cold rag was placed over patient's forehead. Pulse ox was not able to be obtained successfully. Patient only shook/nodded her head to questions asked by staff. Patient's eyes appeared to wander and were glazed. Patient's legs appeared to be mottled; this was not present before 04:00. Patient's heart sounds could not be pinpointed by auscultation; patient's heart rate on telemetry was tachycardic. PVCs were noticed on telemetry for the 04:00 reading. During Rapid Response Patient was nonverbal and disoriented. Patient was very weak. After intubation, patient was sedated. Partial vital signs were taken during the intervention (see above). Oxygen saturation readings could not be obtained successfully at this time. Post Rapid Response Patient sedated, blood pressures started to increase. Interventions Performed Patient was bagged, oxygen was given. EKGs, labs, and x-rays were taken. Suctioning was performed. Vital signs were monitored. Patient's orientation was noted. MD orders were implemented accordingly (see chart). Medications were given (per MAR). Fingerstick bedside glucose was taken (138). Arterial line (left upper extremity) and additional IV access was inserted. Patient was sedated and intubated. Intravenous fluids were started. Patient's family was notified of the patient's change in status. Response/Outcome to Interventions Patient started to stabilize and blood pressures started to trend upwards. Patient remains sedated post rapid response intervention and turned over to ICU. Physician(s) Contacted Orders by Sam (@ approximately 05:20): furosemide 40mg IV NOW, acetaminophen 650 mg RC NOW, 15 L of oxygen via nasal cannula (requested for BIPAP after no change), EKG, chest and abdominal x-rays, lab draws Orders by Jude (during Rapid Response): intubation @ 06:35, bag of normal saline with pressors (standard norepinephrine drip @ 06:22, later increased)/ norepinephrine 8 mg in fluids, etomidate 10 mg IV, succinycholine 100 mg IV, propofol (sedation for intubation), duonebs, arterial line placement, lab draws, additional IV access, manual blood pressures taken. RR Disposition Patient was transferred to ICU/Step-Down.
--- NOTE | 2024-02-15 09:41 | P.CONS_ITS ---
[facility] Disclaimer: The information contained in this section may have been updated after the patient was seen, as this information can be updated by other users. Medical History (Updated 02/14/24 @ 23:02 by Jacey Vargas MD) Hypothyroid HLD (hyperlipidemia) CHF (congestive heart failure) History of lung cancer CIDP (chronic inflammatory demyelinating polyneuropathy) Anxiety HTN (hypertension) GERD (gastroesophageal reflux disease) Neuropathy Family History (Updated 02/14/24 @ 18:24 by Hailey Wynne, RN) Other Cancer Coronary artery disease Diabetes Heart attack No significant family history Stroke Social History (Updated 02/14/24 @ 18:12 by Hailey Wynne, AARON) Smoking Status: Current every day smoker tobacco type: cigarettes packs per day: 1 second hand exposure: Yes alcohol intake: current alcohol intake frequency: 0-2 drinks per day substance use type: marijuana current occupational status: disabled Travel in the last 8 weeks: None household members: none housing: house current occupational exposures/hazards: No caffeine: No Pulmonology Exam Inpatient Vital signs and Labs for Last 24 Hours: Temp Pulse Resp BP Pulse Ox O2 Del Method FiO2 100.9 F H 101 H 24 101/71 L 91 L Room Air 100 02/15/24 07:22 02/15/24 04:00 02/15/24 06:40 02/15/24 04:00 02/15/24 04:00 02/15/24 04:00 02/15/24 06:40 Laboratory Results - last 24 hr 02/14/24 14:50: WBC 20.7 H*, RBC 5.74 H, Hgb 18.2 H, Hct 57.2 H, MCV 99.5 H, MCH 31.9 H, MCHC 32.0, RDW 14.0, Plt Count 282, MPV 9.1, Neut % (Auto) 92.5 H, Lymph % (Auto) 3.1 L, [place] % (Auto) 3.9, Eos % (Auto) 0.2, Baso % (Auto) 0.4, Neut # (Auto) 19.1 H, Lymph # (Auto) 0.6 L, [place] # (Auto) 0.8, Eos # (Auto) 0.0, Baso # (Auto) 0.1, Total Counted 100, Neutrophils % (Manual) 75, Band Neutrophils % 16.0 H, Lymphocytes % (Manual) 5 L, Monocytes % (Manual) 4, Platelet Estimate Normal, RBC Morphology Not Reportable, Anisocytosis 1+, Microcytosis 1+, Macrocytosis 1+, Sodium 129 L, Potassium 4.6, Chloride 93 L, Carbon Dioxide 20 L , Anion Gap 20.6 H, BUN 47 H, Creatinine 1.60 H, Estimated Creat Clear 39, E stimated GFR 33 L, Est GFR ( Amer) 39 L, Glucose 261 H, Lactate 2.8 H, Calcium 9.5, Total Bilirubin 0.8, AST 51 H, ALT 51, Alkaline Phosphatase 211 H, Troponin I < 0.01, Total Protein 7.9, Albumin 4.4, Globulin 3.5 H, Albumin/Globulin Ratio 1.3, Lipase 31 02/14/24 15:00: HIV 1&2 Antibody Rapid Nonreactive 02/14/24 17:20: Urine Color Yellow, Urine Appearance Clear, Urine pH 5.5, Ur Specific [place] 1.025, Urine Protein Trace, Urine Glucose (UA) Negative, Urine Ketones Trace, Urine Blood Negative, Urine Nitrate Positive, Urine Bilirubin Negative, Urine Urobilinogen 1.0, Ur Leukocyte Esterase Trace, Urine RBC 5-10, Urine WBC 20-50, Ur Squamous Epith Cells 10-20, Urine Bacteria 3+, Urine Mucus 3+ 02/14/24 18:45: Lactate 2.3 H, Troponin I 0.02 02/14/24 21:45: Lactate 2.8 H, Troponin I 0.02 02/15/24 05:51: POC Glucose 138 H 02/15/24 06:00: WBC 9.0 D, RBC 3.52 L D, Hgb 11.4 L D, Hct 42.3, MCV 120.1 H, M CH 32.4 H, MCHC 26.9 L, RDW 14.0, Plt Count 123 L D, MPV 8.9, Neut % (Auto) 82.3 H, Lymph % (Auto) 10.8, [place] % (Auto) 6.2, Eos % (Auto) 0.3, Baso % (Auto) 0.5, Neut # (Auto) 7.4, Lymph # (Auto) 1.0, [place] # (Auto) 0.6, Eos # (Auto) 0.0, Baso # (Auto) 0.0 02/15/24 06:20: Sodium 122 L, Potassium 4.3, Chloride 97 L, Carbon Dioxide 7 L* D, Anion Gap 22.3 H, BUN 47 H, Creatinine 2.10 H D, Estimated Creat Clear 30, E stimated GFR 24 L, Est GFR ( Amer) 29 L D, Glucose 458 H* D, Calcium 6.1 L, Troponin I 0.04 H I & O for Labs for Last 24 Hours: Intake & Output 02/12/24 02/13/24 02/14/24 02/15/24 23:59 23:59 23:59 23:59 Intake Total 257 / 257 Balance 257 / 257 Weight 152 lb 12.8 oz 152 lb 12.803 oz Meds Home Medications and Allergies Home Medications ?Medication ?Instructions ?Recorded ?Confirmed ?Type albuterol sulfate 90 mcg/actuation 2 puff inhalation Q4HP PRN 08/05/23 08/05/23 History aerosol inhaler (Ventolin HFA) Shortness Of Breath brimonidine 0.2 % eye drops 1 drp Eye-Both BID 08/05/23 08/05/23 History budesonide-formoterol HFA 160 2 puff inhalation BID Breathing 08/05/23 08/05/23 History mcg-4.5 mcg/actuation aerosol Problems inhaler (Symbicort) cetirizine 10 mg tablet 10 mg PO DAILYP PRN Allergy 08/05/23 08/05/23 History Symptoms cholecalciferol (vitamin D3) 50 50 mcg PO DAILY Supplement 08/05/23 08/05/23 History mcg (2,000 unit) tablet diltiazem HCl 120 mg 120 mg PO DAILY Heart Rate 08/05/23 08/05/23 History capsule,extended release 12 hr duloxetine 60 mg capsule,delayed 60 mg PO DAILY 08/05/23 08/05/23 History release hydrochlorothiazide 25 mg tablet 25 mg PO DAILY Fluid 08/05/23 08/05/23 History latanoprost 0.005 % eye drops 1 drp Eye-Both HS 08/05/23 08/05/23 History levothyroxine 75 mcg tablet 75 mcg PO DAILY Thyroid 08/05/23 08/05/23 History pantoprazole 40 mg tablet,delayed 40 mg PO DAILY Acid Reflux 08/05/23 08/05/23 History release tiotropium bromide 2.5 2 puff inhalation DAILY Breathing 08/05/23 08/05/23 History mcg/actuation mist for inhalation Problems (Spiriva Respimat) furosemide 20 mg tablet (Lasix) 20 mg PO DAILY #30 tabs 08/07/23 Rx levofloxacin 750 mg tablet 750 mg PO Q24H 5 days #5 tabs 08/07/23 Rx nicotine 21 mg/24 hr daily 1 patch transdermal Q24H #28 ea 08/07/23 Rx transdermal patch New Prescriptions to Start Prescriptions: Allergies Allergy/AdvReac Type Severity Reaction Status Date / Time No Known Allergies Allergy Verified 02/27/19 16:10 Results Laboratory Findings 02/15/24 06:00 02/15/24 06:20 Abnormal lab findings: Abnormal Labs 02/14/24 02/14/24 02/14/24 14:50 18:45 21:45 WBC 20.7 H* RBC 5.74 H Hgb 18.2 H Hct 57.2 H MCV 99.5 H MCH 31.9 H MCHC Plt Count Neut % (Auto) 92.5 H Lymph % (Auto) 3.1 L Neut # (Auto) 19.1 H Lymph # (Auto) 0.6 L Band Neutrophils % 16.0 H Lymphocytes % (Manual) 5 L Sodium 129 L Chloride 93 L Carbon Dioxide 20 L Anion Gap 20.6 H BUN 47 H Creatinine 1.60 H Estimated GFR 33 L Est GFR ( Amer) 39 L Glucose 261 H POC Glucose Lactate 2.8 H 2.3 H 2.8 H Calcium AST 51 H Alkaline Phosphatase 211 H Troponin I Globulin 3.5 H 02/15/24 02/15/24 02/15/24 05:51 06:00 06:20 WBC RBC 3.52 L D Hgb 11.4 L D Hct MCV 120.1 H MCH 32.4 H MCHC 26.9 L Plt Count 123 L D Neut % (Auto) 82.3 H Lymph % (Auto) Neut # (Auto) Lymph # (Auto) Band Neutrophils % Lymphocytes % (Manual) Sodium 122 L Chloride 97 L Carbon Dioxide 7 L* D Anion Gap 22.3 H BUN 47 H Creatinine 2.10 H D Estimated GFR 24 L Est GFR ( Amer) 29 L D Glucose 458 H* D POC Glucose 138 H Lactate Calcium 6.1 L AST Alkaline Phosphatase Troponin I 0.04 H Globulin Assessment and Plan *Assessment and plan Plan Ms. Annalee Amaral is a 63-year-old female with reported history of CAD, CHF, lung cancer status post lobectomy and chemoradiation currently in remission, COPD presented to the ER was consulted for further evaluation and management of her pulmonary comorbidities. CT abdomen, lower lung [place] right lower lobe fibrotic/nodular opacity, improved from her CT abdomen from December 2023 Procedures Arterial Line Size (Gauge): 20
--- NOTE | 2024-02-15 10:08 | PC.NURSE ---
Addendum entered by Gisel Garza RN 02/15/24 10:49: 0758 D50 Original Note: 0743 87/61, HR 58, O2 92%, intubated during prior rapid response on prior shift 0748 Code Blue Called, propofol stopped, vasopressin and norepi continued 0750 Epi given 0751 pulse check, no pulse, compressions resumed 0753 epi and bicarb given 0754 pulse check, no pulse, compressions resumed 0756 epi given 0757 pulse check, PEA, bicarb given 0759 family wishes to not resume CPR, pulse found 0801 [address]KG [address] Head to continue LR bolus, give additional bolus when it is complete, Dr to talk to family again to clarify orders 0820 patient extubated per family wishes and made DNR, vasopressin and norepi gtt stopped
[2024-02-15 10:23] LABS: ABG PH 6.98 mmol/L (7.35-7.45)
[2024-02-15 10:24] LABS: ABG Base Excess -20.9 mmol/L (-2.4-2.3); ABG HCO3 11.1 mmhg (22.0-26.0); ABG Oxygen Saturation 100 % (90-100); ABG PCO2 50.6 mmhg (35.0-45.0); ABG PO2 338.4 mmhg (80-100); ABG TCO2 12.6 mmhg (23-27)
[2024-02-15 10:25] LABS: Oxygen 100 %; PEEP 5; Source A LINE; Tidal Volume 420; Vent Rate 24
--- NOTE | 2024-02-15 10:44 | EXP.EVENT.NO ---
Pulmonary was consulted for this patient is morning. Before pulmonary has evaluated this patient, patient had significant event where she coded plan was to made comfort care. Request to cancel the pulmonary consult. Please call with any further questions or concerns.
--- NOTE | 2024-02-15 10:46 | PC.NURSE ---
0912- TOD 0916- supervisor cleaning and annealing notified 0917- Dictionary Editor called 0919- Family leaving, has stated that they wish to use [facility] 09- Dictionary Editor ruled pt out 0943- JOLLY called, case # [id number], Larry Olivo, pt ruled out for donation
--- NOTE | 2024-02-15 14:46 | EXP.EVENT.NO ---
CODE BLUE was patient's morning, see documentation of CODE BLUE for exact time. I presented at bedside where Dr. Head was in charge of resuscitation and patient was undergoing ACLS. I confirmed airway placement with glide scope ago with Mac 3 blade which confirmed appropriate positioning of the ET tube through the cords. Dr. Head transferred resuscitation to nc as ACLS logistics team lead for approximately 5 minutes while undergoing discussion with family as to goals of care. Upon his return family wishes to terminate resuscitation efforts and compressions were discontinued, patient had a pulse at that time and further care and disposition at that time was transferred to Dr. Head for ongoing resuscitation.
--- NOTE | 2024-03-14 12:28 | EXP.DEATH.DS ---
Discharge Sum: Prov Provider Primary care physician: YOLI Polanco Visit Care Team Role Provider Type YOLI Polanco Primary Care Provider Staff Physician Klaus Shi MD Other Providers Staff Physician Alejandro Salinas MD Other Providers Staff Physician Elmer Liu MD Other Providers Staff Physician Fallon Plasencia MD Other Providers Consulting Physician Jc Choudhury MD Other Providers Staff Physician Juan David Edwards PA Other Providers Physician Caramel Cutter Helper Sarah Castrejon MD Other Providers Consulting Physician Storm Alves MD Other Providers Consulting Physician YOLI March Other Providers Physician Caramel Cutter Helper Colin Julio MD Other Providers Staff Physician Elizabeth Boss, FOREIGN LAW CONSULTANT Other Providers Nurse Practitioner Carmenza Quintana APRN Other Providers Nurse Practitioner Melvin Escalante MD Emergency Provider ER Physician Nick eHad MD Admit Provider Staff Physician Attending Provider Admitting clinician: Nick Head Consults: 02/14/24 17:52 Gastroenterology Consult [Consult to Gastroenterology] [CONS] Routine Consulting Provider: Rudy Cohen II Reason For Consult: obstipation 02/15/24 06:17 Consult to Pulmonology [CONS] Routine Consulting Provider: Elmer Liu Reason For Consult: hypoxic, respiratory distress 02/15/24 06:18 Consult to Cardiology [CONS] Routine Consulting Provider: Cardiology Reason For Consult: shock, hypotension 02/15/24 07:27 General Surgery Consult [Consult to General Surgery] [CONS] Stat Consulting Provider: Alejandro Salinas Reason For Consult: SBO with ventral hernia Pronouncing clinician: Nick Head Discharge Sum: Diag PCOD Cause of : Cardiac arrest as complication of care Contributing Factors (1) Constipation: (2) Acute abdominal pain: (3) MANDIE (acute kidney injury): (4) Metabolic acidemia: (5) Lactic acid acidosis: (6) Large bowel obstruction: (7) Obstipation: Discharge Sum: Summary Date and Time Date of admission: 02/14/24 18:16 Date of : 02/15/24 Time of : 10:12 Hospital Course prior to Hospital Course Information: Dated 02/15/2024 Patient is a 63-year-old female with past medical history of CAD CHF lung cancer status post lobectomy chemo and radiation currently in remission, COPD who presents to the hospital due to abdominal pain. According to the patient she had abdominal hernia which has become more painful. Patient was supposed to visit [facility] facility however due to worsening pain they decided to come to the [facility]. Patient had last bowel movement around 2 days ago. Assessment and plan Abdominal pain likely due to constipation Large abdominal wall hernia Lactulose enema ordered in the emergency department Consulted gastroenterology Hyponatremia likely due to poor oral intake Started IV normal saline fluids Monitor BMP Acute kidney injury likely prerenal Continue IV fluids Monitor creatinine Hypoglycemia likely due to diabetes mellitus Check A1c Lactic acidosis, leukocytosis Monitor lactic acid If concern for mesenteric ischemia we will order CT abdomen angiogram with contrast however patient has MANDIE, will hold off on CT angio for now Will continue IV fluid for now Monitor and replace electrolytes Ordered Zosyn empirically New bilateral wedge-shaped defects in both kidneys, can not exclude emboli or pyelonephritis on CT abdomen Monitor for hematuria, CT angio abdomen pelvis when stable History of lung cancer s/p chemo and radiation therapy - Currently in remission, follows with oncology. Summary Details: At approximately 6 in the morning, patient's mentation and respiratory status began to decline. Patient's GCS became less than 8 and decision was made to rapidly sedate and intubate patient. Patient remained on minimal vent settings, however proceeding ABG showed severe metabolic acidosis with pH 6.9 likely from worsening lactic acidosis with underlying severe fecal impaction into a large ventral hernia, and probable mesenteric ischemia. Shortly after I arrived to assess the patient around 7:10 AM, patient had CODE BLUE with cardiac arrest and asystole. We began ACLS with CPR, epinephrine, bicarb, IV fluids for approximately 7 minutes until family arrived. Eyes transitioned running the code to Dr. Arguello while I spoke to family about goals of care. After thorough conversation, family decided to make patient comfort care and the code was stopped. Patient had a pulse at this time. We proceeded to withdraw care per family wishes. At approximately 10 AM I was notified by nurse patient's clinical decline. When arrived, patient was not responsive, shallow respirations subsided, no cardiac sounds, no pulse, not withdrawing to pain stimulus, pupils were not reactive. At 10:10 AM patient's was pronounced by me. Patient's family was at bedside during this time and were provided supportive care as they needed. Additional Data Confirmation of as documented by pronouncing clinician: no pulse Family: at bedside Additional persons at bedside: older adult social work specialist Attending/PCP notified?: Yes Attending physician: Nick Head MD Was code activated?: Yes Autopsy requested?: No forensic examiner notified?: Yes Organ bank notified?: No Advance directives: Yes Hospice patient?: No
== END 2024-02-15 09:12 | disposition expired | DRG 394 ==
LOC: ER 15:46 → 2ND 17:51
PROVIDERS: Admitting Provider Student in an Organized Health Care Education/Training Program; Emergency Provider Emergency Medicine; PCP Physician Assistant Surgical; Visit Provider Student in an Organized Health Care Education/Training Program
DX: K43.6 Other and unspecified ventral hernia with obstruction, without gangrene (principal); E87.1 Hypo-osmolality and hyponatremia; N17.9 Acute kidney failure, unspecified; E87.21 Acute metabolic acidosis; G61.81 Chronic inflammatory demyelinating polyneuritis; I46.9 Cardiac arrest, cause unspecified; K59.00 Constipation, unspecified; F17.210 Nicotine dependence, cigarettes, uncomplicated; Z79.899 Other long term (current) drug therapy; I25.10 Atherosclerotic heart disease of native coronary artery without angina pectoris; I50.9 Heart failure, unspecified; J44.9 Chronic obstructive pulmonary disease, unspecified; E11.649 Type 2 diabetes mellitus with hypoglycemia without coma; Z90.2 Acquired absence of lung [part of]; E03.9 Hypothyroidism, unspecified
CPT/HCPCS: 36415; 71045; 74018; 74177; 80048; 80053; 81001; 82803; 82962; 83605; 83690; 84484; 85007; 85025; 85027; 87040; 87070; 87077; 87086; 87186; 87205; 87389; 93005; 94002; 99285; J0295; J0330; J1171; J1644; J1885; J2270; J2405; J2543; J2704; J7030; J7120; J7620; Q9967